=== PATIENT | female | born 1965 | race African-American/Black ===

== ENCOUNTER 2018-08-21 18:01 | Emergency (ER) | payer BC ==
[2018-08-21] MEDS ORDERED: HYDROCODONE/APAP 5/325 MG TAB ONE (18:46)
--- NOTE | 2018-08-21 19:00 | ER ---
Nurse's Notes [facility] Name: Dorothy Tompkins Age: 52 yrs Sex: Female : 1965 Arrival Date: 08/21/2018 Time: 18:04 Bed 18 Private MD: Marge Ken H Diagnosis: Synovial cyst of popliteal space [Moreno], left knee Presentation: 08/21 18:15 Presenting complaint: Patient states: betsy leg pain and swelling that began Tuesday. Pt aa5 states "the left hurts worse than the right". Transition of care: patient was not received from another setting of care. Onset of symptoms was August 2018. Risk Assessment: Do you want to hurt yourself or someone else? Patient reports no desire to harm self or others. Initial Sepsis Screen: Does the patient meet any 2 criteria? No. Patient's initial sepsis screen is negative. Does the patient have a suspected source of infection? No. Patient's initial sepsis screen is negative. Care prior to arrival: None. 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 - Social history:: Smoking status: Patient/guardian denies using tobacco. - Ebola Screening: : No symptoms or risks identified at this time. Screenin:35 Abuse screen: Denies threats or abuse. Denies injuries from another. Nutritional jl7 screening: No deficits noted. Tuberculosis screening: No symptoms or risk factors identified. Fall Risk None identified. Assessment: 18:35 Pain: Complains of pain in right leg and left leg Pain does not radiate. Pain currently jl7 is 8 out of 10 on a pain scale. Quality of pain is described as pressure, "warmth" Pain began Since Is continuous. Neuro: Level of Consciousness is awake, alert, obeys commands, Oriented to person, place, time, situation. Cardiovascular: Patient's skin is warm and dry. Respiratory: Airway is patent Respiratory effort is even, unlabored, Respiratory pattern is regular, symmetrical. GI: No signs and/or symptoms were reported involving the gastrointestinal system. : No signs and/or symptoms were reported regarding the genitourinary system. EENT: No signs and/or symptoms were reported regarding the EENT system. Derm: Skin is dry, Skin is normal, Skin temperature is warm. Musculoskeletal: Range of motion: intact in all extremities. 19:28 Reassessment: Patient and/or family updated on plan of care and expected duration. Pain ea level reassessed. Patient is alert, oriented x 3, equal unlabored respirations, skin warm/dry/pink. Discharge instructions given to patient, verbalized the understanding of instruction. Vital Signs: 18:19 BP 145 / 91; Pulse 68; Resp 18 S; Temp 98.4(TE); Pulse Ox 100% on R/A; Weight 118.84 kg aa5 (R); Height 5 ft. 4 in. (162.56 cm) (R); Pain 8/10; 19:15 BP 140 / 80; Pulse 70; Resp 18; Pulse Ox 98% ; ea 18:19 Body Mass Index 44.97 (118.84 kg, 162.56 cm) aa5 ED Course: 18:04 Patient arrived in ED. rg4 18:04 Marge Ken DO is Private Physician. rg4 18:18 Triage completed. aa5 18:18 Arm band placed on. aa5 18:23 Prudence Stevenson FNP-C [facility]. snw 18:23 Tawanda Oliveira MD is Attending Physician. snw 18:31 Stephanie Bedolla RN is Primary Nurse. jl7 18:35 Patient has correct armband on for positive identification. Bed in low position. Call jl7 light in reach. Side rails up X 1. Pulse ox on. NIBP on. 18:59 Marge Ken DO is Referral Physician. snw 18:59 Jaydon Jo MD is Referral Physician. snw 19:15 US Extremity Venous W Compression Betsy In Process Unspecified. EDMS 19:29 No provider procedures requiring assistance completed. Patient did not have IV access ea during this emergency room visit. Administered Medications: 18:40 Drug: Aneta 5 mg-325 mg 1 tabs Route: PO; jl7 19:15 Follow up: Response: No adverse reaction harinder Outcome: 18:59 Discharge ordered by . azael 19:29 Discharged to home ambulatory, with family. harinder 19:29 Condition: improved 19:29 Discharge instructions given to patient, Instructed on discharge instructions, follow up and referral plans. medication usage, Demonstrated understanding of instructions, follow-up care, medications, Prescriptions given X 1. 19:31 Patient left the ED. ea Signatures: Dispatcher [employer] EDMS Prudence Stevenson, LIFE SCIENCES MANAGER-C LIFE SCIENCES MANAGER-Csnw Cherelle Franklin, RN RN aa5 Bernadette Beaver Jahala RN RN jl7 Marti Schaffer RN RN harinder
--- NOTE | 2018-08-21 19:00 | EDPHYS ---
Physician Documentation [facility] Name: Dorothy Tompkins Age: 52 yrs Sex: Female : 1965 Arrival Date: 08/21/2018 Time: 18:04 Bed 18 Private MD: Marge Ken H ED Physician Tawanda Oliveira HPI: 08/21 18:42 This 52 yrs old Black Female presents to ER via Ambulatory with complaints of Leg snw Swelling, Leg Pain. 18:42 The patient presents with pain, that is acute, swelling. The complaints affect the left snw leg and right leg. Context: The problem was sustained at home, resulted from an unknown cause, the patient can fully bear weight, the patient is able to ambulate, Problem is a result from a previous injury: No. Onset: The symptoms/episode began/occurred gradually, 1 week(s) ago, and became persistent. Associated signs and symptoms: Pertinent positives: swelling, tenderness. Treatment prior to arrival includes: taking allopurinol and just finished dose of steroids. Severity of symptoms: At their worst the symptoms were moderate, severe. The patient has experienced a previous episode, last month. The patient has been recently seen by a physician: the patient's primary care provider, 1 week(s) ago. SPA THERAPIST: 18:19 LMP N/A - Post-menopause aa5 Historical: - Allergies: 18:19 TIA INHIBITORS; aa5 18:19 Biaxin; aa5 18:19 Clarithromycin; aa5 18:19 Lisinopril; aa5 - PMHx: 18:19 Hypertension; aa5 - PSHx: 18:19 esophagus sx to remove growth; Appendectomy; aa5 - Immunization history:: Adult Immunizations unknown. - Social history:: Smoking status: Patient/guardian denies using tobacco. - Ebola Screening: : No symptoms or risks identified at this time. ROS: 18:41 Constitutional: Negative for fever, chills, and weight loss, Eyes: Negative for injury, snw pain, redness, and discharge, ENT: Negative for injury, pain, and discharge, Neck: Negative for injury, pain, and swelling, Cardiovascular: Negative for chest pain, palpitations, and edema, Respiratory: Negative for shortness of breath, cough, wheezing, and pleuritic chest pain, Abdomen/GI: Negative for abdominal pain, nausea, vomiting, diarrhea, and constipation, Back: Negative for injury and pain, : Negative for injury, bleeding, discharge, and swelling, Skin: Negative for injury, rash, and discoloration, Neuro: Negative for headache, weakness, numbness, tingling, and seizure. 18:41 MS/extremity: Positive for pain to bilateral lower extremities from knees down, just finished dose of prednisone and is taking allopurinol. Exam: 18:39 Constitutional: This is a well developed, well nourished patient who is awake, alert, snw and in no acute distress. Head/Face: Normocephalic, atraumatic. Eyes: Pupils equal round and reactive to light, extra-ocular motions intact. Lids and lashes normal. Conjunctiva and sclera are non-icteric and not injected. Cornea within normal limits. Periorbital areas with no swelling, redness, or edema. ENT: Nares patent. No nasal discharge, no septal abnormalities noted. Tympanic membranes are normal and external auditory canals are clear. Oropharynx with no redness, swelling, or masses, exudates, or evidence of obstruction, uvula midline. Mucous membranes moist. Neck: Trachea midline, no thyromegaly or masses palpated, and no cervical lymphadenopathy. Supple, full range of motion without nuchal rigidity, or vertebral point tenderness. No Meningismus. Chest/axilla: Normal chest wall appearance and motion. Nontender with no deformity. No lesions are appreciated. Cardiovascular: Regular rate and rhythm with a normal S1 and S2. No gallops, murmurs, or rubs. Normal PMI, no JVD. No pulse deficits. Respiratory: Lungs have equal breath sounds bilaterally, clear to auscultation and percussion. No rales, rhonchi or wheezes noted. No increased work of breathing, no retractions or nasal flaring. Abdomen/GI: Soft, non-tender, with normal bowel sounds. No distension or tympany. No guarding or rebound. No evidence of tenderness throughout. Back: No spinal tenderness. No costovertebral tenderness. Full range of motion. Skin: Warm, dry with normal turgor. Normal color with no rashes, no lesions, and no evidence of cellulitis. Neuro: Awake and alert, GCS 15, oriented to person, place, time, and situation. Cranial nerves II-XII grossly intact. Motor strength 5/5 in all extremities. Sensory grossly intact. Cerebellar exam normal. Normal gait. Psych: Awake, alert, with orientation to person, place and time. Behavior, mood, and affect are within normal limits. 18:39 Musculoskeletal/extremity: Extremities: bilateral lower ext nonpitting edema. No erythema, no pulse defecit, ROM: intact in all extremities, Circulation is intact in all extremities. Sensation intact. Vital Signs: 18:19 BP 145 / 91; Pulse 68; Resp 18 S; Temp 98.4(TE); Pulse Ox 100% on R/A; Weight 118.84 kg aa5 (R); Height 5 ft. 4 in. (162.56 cm) (R); Pain 8/10; 19:15 BP 140 / 80; Pulse 70; Resp 18; Pulse Ox 98% ; ea 18:19 Body Mass Index 44.97 (118.84 kg, 162.56 cm) aa5 MDM: 18:[address] [facility] 19:01 Data reviewed: vital signs, nurses notes. Data interpreted: Pulse oximetry: on room air snw is 100 %. Interpretation: normal. Counseling: I had a detailed discussion with the patient and/or guardian regarding: the historical points, exam findings, and any diagnostic results supporting the discharge/admit diagnosis, radiology results, the need for outpatient follow up, to return to the emergency department if symptoms worsen or persist or if there are any questions or concerns that arise at home. Special discussion: Based on the history and exam findings, there is no indication for further emergent testing or inpatient evaluation. I discussed with the patient/guardian the need to see the orthopedic surgeon for further evaluation of the symptoms. I discussed with the patient/guardian the need to see the primary care provider for further evaluation of the symptoms. 08/21 18:34 Order name: US Extremity Venous W Compression Tc; Complete Time: 19:24 snw Administered Medications: 18:40 Drug: Roland 5 mg-325 mg 1 tabs Route: PO; jl7 19:15 Follow up: Response: No adverse reaction ea Disposition: 08/22 07:40 Co-signature as Attending Physician, Tawanda Oliveira MD I agree with the assessment and [facility] plan of care. Disposition: 08/21/18 18:59 Discharged to Home. Impression: Synovial cyst of popliteal space [Moreno], left knee. - Condition is Stable. - Discharge Instructions: Moreno Cyst, How to Use a Knee Brace, Knee Sprain, Knee Pain. - Prescriptions for Tylenol- Codeine #3 300-30 mg Oral Tablet - take 2 tablets by ORAL route every 6 hours As needed; 20 tablet. - Work release form, Medication Reconciliation Form, Thank You Letter, Antibiotic Education, Prescription Opioid Use form. - Follow up: Suellen, DO Marge; When: 2 - 3 days; Reason: Recheck today's complaints, Continuance of care, Re-evaluation by your physician. Follow up: Emergency Department; When: As needed; Reason: Worsening of condition. Follow up: Jaydon Jo MD; When: 1 week; Reason: Recheck today's complaints, Continuance of care. Signatures: Dispatcher [employer] EDTawanda Michaels MD MD cha Therrien, Shelly, ANIMAL PATHOLOGY TEACHER-C ANIMAL PATHOLOGY TEACHER-Csnw Cherelle Franklin, RN RN aa5 Stephanie Bedolla RN RN jl7 Marti Schaffer RN RN ea Corrections: (The following items were deleted from the chart) 08/21 19:31 18:59 08/21/2018 18:59 Discharged to Home. Impression: Synovial cyst of popliteal space ea [Moreno], left knee. Condition is Stable. Forms are Medication Reconciliation Form, Thank You Letter, Antibiotic Education, Prescription Opioid Use. Follow up: Marge Ken; When: 2 - 3 days; Reason: Recheck today's complaints, Continuance of care, Re-evaluation by your physician. Follow up: Emergency Department; When: As needed; Reason: Worsening of condition. Follow up: Jaydon Jo; When: 1 week; Reason: Recheck today's complaints, Continuance of care. snw
--- NOTE | 2018-08-21 19:21 | RAD REPORT ---
EXAM DESCRIPTION: US - Extrem Venous W Compress Tc - 08/21/2018 7:14 pm CLINICAL HISTORY: Leg pain and swelling COMPARISON: None. TECHNIQUE: Real-time sonographic evaluation of the bilateral lower extremity common femoral, superfi cial femoral, popliteal and posterior tibial veins was performed. FINDINGS: Normal compressibility, flow augmentation, phasic flow and spontaneous flow are identified in the left and right lower extremity common femoral, superficial femoral, popliteal and posterior t ibial veins. No intraluminal filling defects seen. A 3.7 x 1.5 x 1.1 centimeter popliteal fossa cyst present. Debris is seen within this cyst but no rup ture or hemorrhage. IMPRESSION: No DVT in either lower extremity. Approximately 3.7 centimeter minimally complex popliteal fossa cyst. No acute cyst rupture or hemorrh age.
[2018-08-21 19:35] VITALS: TEMP 98.4
[2018-08-21 19:36] VITALS: BP 140/80; O2SAT 98
== END 2018-08-21 19:31 | disposition home or self-care (01) ==
LOC: ER 18:01
DX: M71.22 Synovial cyst of popliteal space [Baker], left knee (principal); I10 Essential (primary) hypertension; Z88.3 Allergy status to other anti-infective agents; Z88.8 Allergy status to other drugs, medicaments and biological substances
CPT/HCPCS: 93970; 99284

== ENCOUNTER 2023-01-13 06:05 | Day surgery (SDC) | payer OTHER ==
[2023-01-10 16:28] LABS: Absolute Lymphocytes (CBC) 2.4 K/uL (0.7-4.9); Lymphocytes % 34.5 % (15.3-44.8); MPV 8.4 fL (7.6-11.3); RBC Red Blood Cell Count 4.86 M/uL (3.86-4.86)
[2023-01-10 16:31] LABS: Specific Gravity 1.012 (1.005-1.030); Urine Bacteria None Seen /HPF (<20); Urine Bilirubin NEGATIVE (Negative); Urine Blood Negative (Negative); Urine Clarity Clear (Clear); Urine Color Light-Yellow (Yellow); Urine Crystals Unidentified Few /HPF (None Seen); Urine Glucose NEGATIVE (Negative); Urine Mucus Slight /HPF (None Seen); Urine Protein NEGATIVE (Negative); Urine RBC <5 /HPF (None Seen); Urine Urobilinogen Normal (Normal); Urine WBC Clump Rare /HPF (None Seen); Urine pH 5.5 (5.0-7.0)
[2023-01-13] MEDS ORDERED: SCOPOLAMINE HYDROBROMIDE PATCH TD ONE (06:16)
[2023-01-13] MEDS ORDERED: Ringers Lactate 1,000 ML IV ONE ×3 (06:16→09:56)
[2023-01-13] MEDS ORDERED: dexAMETHasone 10 MG/ML VIAL ONE (06:51)
[2023-01-13] MEDS ORDERED: ROCURONIUM 50 MG/5 ML VIAL IV ONE (06:51)
[2023-01-13] MEDS ORDERED: FENTANYL CITR 250 MCG/5 ML ONE (06:51)
[2023-01-13] MEDS ORDERED: propofoL 200 MG/20 ML VIAL IV ONE (06:51)
[2023-01-13] MEDS ORDERED: LIDOCAINE 2% MPF 5 ML VIAL ONE (06:51)
[2023-01-13] MEDS ORDERED: KETAMINE HCL 500 MG/5 ML VIAL ONE (06:52)
[2023-01-13] MEDS ORDERED: NS 0.9% VIAL 20 ML ONE (06:52)
[2023-01-13] MEDS ORDERED: MIDAZOLAM HCL 2 MG/2 ML INJ ONE (06:52)
[2023-01-13] MEDS ORDERED: ONDANSETRON 4 MG/2 ML VIAL ONE (06:52)
[2023-01-13] MEDS: Levofloxacin 750mg IV 750 MG/150 ML BAG IV ONE ×2 (07:34→07:50)
[2023-01-13] MEDS: BUPIVACAINE 0.25% PF 10 ML VIAL ONE ×4 (07:34→11:30)
[2023-01-13] MEDS ORDERED: Mastisol Adhesive Liq ONE (11:27)
[2023-01-13] MEDS ORDERED: PROMETHAZINE INJ 25 MG/ML AMP IV PRN (11:27)
[2023-01-13] MEDS ORDERED: MEPERIDINE HCL 25 MG/ML SYR IM PRN (11:27)
[2023-01-13] MEDS ORDERED: IBUPROFEN 200 MG TAB PO PRN (11:27)
[2023-01-13] MEDS ORDERED: HYDROCODONE/APAP 5/325 MG TAB PO PRN (11:27)
--- NOTE | 2023-01-13 11:33 | P.BOP ---
Preoperative diagnosis: postmenopausal bleeding Postoperative diagnosis: same Primary procedure: TLH BSO, Vag morcellation, lysis of bowel, uterine tubal ovarian adhesions [place] [place] Production Supervisor: Dipti Valerio Estimated blood loss: 250 Specimen: uterus tubes ovaries Findings: bilat tubal and ovarian adhesions, Umb hernia w/omental adhesions contents Anesthesia: General Complications: None Transferred to: Recovery Room Condition: Good
[2023-01-13] MEDS: HYDROMORPHONE HCL 1 MG/ML INJ ONE ×2 (11:59→12:18)
[2023-01-13] MEDS ORDERED: HYDROMORPHONE HCL 1 MG/ML INJ ONE (12:23)
[2023-01-13 13:45] VITALS: BP 156/92; TEMP 97.2; O2SAT 95
[2023-01-13] MEDS ORDERED: HYDROCODONE/APAP 5/325 MG TAB ONE (13:52)
--- NOTE | 2023-01-13 14:56 | OP ---
Date of Procedure: 01/13/2023 Surgeon: Sara Garrett MD Ux Developer Designer: Dipti Bowman. Preoperative Diagnoses: Postmenopausal bleeding, morbid obesity, obstructive sleep apnea. Postoperative Diagnoses: Postmenopausal bleeding, morbid obesity, obstructive sleep apnea, and large fibroid, umbilical hernia with incarcerated omental contents, significant bilateral tubal and ovaria n adhesions. Anesthesia: General endotracheal. Estimated Blood Loss: 250. Complications: No complications. Drains: No drains. Condition: The patient's condition stable. Findings: Bilateral tubal and ovarian adhesions, significant most likely phlebotomy services representative of all with the umbilical hernia with large amount of omental adhesions and also adhesions to the anterior abdomi nal wall from her prior appendectomy most likely. Then, she had a large pannus which made the proced ure difficult as well. Vaginal cuff closure, 2-0 V-Loc, 3 sutures on the right corner and immediatel y adjacent to it. Then, 2 simple sutures and 2 [id number] in the rest of the vaginal cuff with 3-0 PDS. Indications: The patient is a 57-year-old with postmenopausal bleeding. She was evaluated with ultr asound and endometrial sampling. She was found to have no atypia or malignancy. Discussed about all different options with her recurrent bleeding. The patient wanted to proceed with a hysterectomy. Discussed about alternative IUD levonorgestrel system, but declined, thus she wanted definitive manag ement. After consenting the patient, she was brought to the preoperative area. We discussed about obstructi ve sleep apnea. She was counseled on using her CPAP machine at night, especially given the risk that she could have postanesthesia and with the use of narcotics for pain control. The patient understoo d this. Levaquin 750 mg were given as the patient has penicillin allergy with severe . She was taken back to OR, placed in a supine fashion on the table. General anesthesia was given. Sh e was placed in a dorsal lithotomy position using Chicho stirrups. Abdomen, vulva, vagina, and perine um were prepped and draped in a sterile fashion. Abdomen with ChloraPrep and vagina and lower part w ith Betadine. Andrade was placed to drain the bladder and attached to retrograde filling. Speculum placed to expose cervix and medium VCare introduced and fixed in place. This area was then draped. A 1 cm supraumbilical incision was made with a scalpel using the open laparoscopy technique. Fascia was incised, tagged with 0 Vicryl sutures and the peritoneum entered bluntly. I could palpate the om ental adhesions at the side and they were swept with a finger in the top half and then a 5 port in th e left lower quadrant and in the left upper quadrant were placed without any problems. Then, I went on to the right lower quadrant 5 port as well. Through all these omental adhesions were all visualiz ed and systematically taken down layer by layer with the LigaSure and completely resected and drop-do wn and the patient was placed in Trendelenburg. There were significant in tubal and ovarian adhesions. A 10/12 suprapubic port was placed under dire ct vision. Once all small and large bowels were retracted superiorly, I inspected the pelvic cavity. There were significant tubo-ovarian adhesions to the sidewall, posterior uterosacral, posterior uterus and then sigmoid adhesions to the anterior cul-de-sac, lateral cul-de-sac and the only task to be performed w as to restore normal anatomy by taking down all these adhesions in order for me to visualize the pelv ic pathology on the sidewall. Once this was done with the help of the LigaSure in a systematic fashi on using the coagulative aspect as well as cutting at most places with regular dissection with scisso rs. Once all the adhesions were taken down from the right and the left and the posterior wall and identif ied the ureters on the pelvic brim to the ureteric tunnel. Now, hysterectomy was started. Lateral broad ligament on the left side was opened up with the help o f the LigaSure. Then, the medial leaf of the broad ligament was also opened up between the ureter an d the IP. Then, the pedicle was taken with the help of the LigaSure. Mesosalpinx posteriorly was ta lowell down with the help of the LigaSure. Then, the round ligament on the left side was exposed, caute rized, and cut, opened the anterior-posterior leaves posteriorly. There were adhesions of the sigmoi d to the left uterosacral. These was then dissected down carefully without causing any injury to the bowel. The ureter was also dissected and it was sliding laterally. The broad ligament skeletonized, vessels exposed, vessels coagulated and cut with the help of the Lig aSure. Then, on the opposite side, the anterior peritoneum above and below the round ligament were o pened up. The round ligament was taken down. The medial leaf of the broad ligament impaled to the I P was opened up and this pedicle was taken down with the help of the LigaSure and dissection carried through the posterior peritoneum all the way to the uterosacral ligament and once this was dropped do ne, the anterior broad ligament was opened up and connected to the bladder flap. Bladder was dissect ed inferiorly. Then, broad ligament taken down and the vessels were taken down with the help of the LigaSure, first on the right side and then on the left side exposing the uterosacral ligaments. The connections were also detached with the help of the LigaSure. Then, anteriorly the bladder was disse cted adequately for me to see the cuff and so colpotomy was performed with a monopolar hook blade piero villalobos from [id number]-gf-vasd and then the posterior aspect connected with the help of the monopolar hook. Specimen attempted to be pulled out through the vagina. This was very difficult due to the size of t he fibroid. There were large fibroids on her right side. Vaginal morcellation was then decided for the uterus to come out. Then, [place] clamps were pl aced on the anterior and posterior lip of the cervix and morcellated with the help of a 10 blade and using small retractors for exposure. Once all this was done, the specimen pulled out through the vag ayde. A vaginal occluder was placed. I went on to the abdominal part and here on irrigating and suctioning the cuff, this was hemostatic. Then, 2-0 V-Loc was taken and started to suture from the right angle. The angle suture was placed, then another suture half were placed; however, there was very significant difficulty visualizing in t he inner edge of the vaginal epithelium at the level of the cuff and there was a bleeder from the lef t corner. Once I was able to identify this, it was picked up with Marie and two 5 mm princess were placed. The clips were placed. Cautery was done with the help of the fine tip bipolar. A 0 PDS simple angle suture was placed. Then, 2 [id number] were placed and then a simple centr al 0 Vicryl stitch was placed. Once there was excellent apposition, then pictures were taken. All t he trocars were removed under direct vision. Instrument, needle, and sponge counts were correct at t he end of the case. After de-sufflating the abdomen placing the patient in the supine position, the gas was desufflated and incision site fascial closure was done with a 0 Vicryl suture, was tagged to the edges. They were tied to each other, then simple deep 0 Vicryl suture in the suprapubic port and all skin incisions closed with the help of 4-0 Monocryl, some interrupted and some continuous suture s. Andrade was removed and the vaginal occluder was removed. Instrument, needle, and sponge counts were d one again and they were correct. She was recovered from anesthesia and taken to PACU in stable condi tion. EBL 250. She has a 1-week follow up in the office. Careful vaginal instructions making sure that she is not sexually active for at least 8-10 weeks would be optimal. ZACH/SURJIT Voice ID: [id number] Report ID: [id number]
[2023-01-14] MEDS ORDERED: ASHWAGANDHA ROOT EXTRACT 500 MG PO SCH (09:00)
[2023-01-14] MEDS ORDERED: METOPROLOL XL 25 MG TAB PO SCH (09:00)
[2023-01-14] MEDS ORDERED: HOME MED 1 EA UNK (L.Acidoph,Paracasei, B.Lactis [Probiotic] Capsule) PO SCH (09:00)
[2023-01-14] MEDS ORDERED: MVI WITH MINERALS TAB PO SCH (09:00)
[2023-01-14] MEDS ORDERED: PANTOPRAZOLE 40MG TABLET PO SCH (09:00)
[2023-01-14] MEDS ORDERED: HOME MED 1 EA UNK (Losartan/Hydrochlorothiazide [Losartan-Hctz 100-25 Mg Tab] 1 EACH Table PO SCH (09:00)
[2023-01-14] MEDS ORDERED: LORATADINE 10 MG TAB PO SCH (09:00)
[2023-01-14] MEDS ORDERED: CETIRIZINE HCL 5 MG TABLET PO SCH (09:00)
== END 2023-01-13 15:27 | disposition home or self-care (01) ==
LOC: OR 06:05
PROVIDERS: ATTEND Obstetrics & Gynecology
PROC: 0UT24ZZ Resection of Bilateral Ovaries, Percutaneous Endoscopic Approach (ICD-10-PCS; 2023-01-13)
PROC: 0UT74ZZ Resection of Bilateral Fallopian Tubes, Percutaneous Endoscopic Approach (ICD-10-PCS; 2023-01-13)
PROC: 0UN24ZZ Release Bilateral Ovaries, Percutaneous Endoscopic Approach (ICD-10-PCS; 2023-01-13)
PROC: 0DNN4ZZ Release Sigmoid Colon, Percutaneous Endoscopic Approach (ICD-10-PCS; 2023-01-13)
PROC: 0DN84ZZ Release Small Intestine, Percutaneous Endoscopic Approach (ICD-10-PCS; 2023-01-13)
PROC: 0DNE4ZZ Release Large Intestine, Percutaneous Endoscopic Approach (ICD-10-PCS; 2023-01-13)
PROC: 0UN74ZZ Release Bilateral Fallopian Tubes, Percutaneous Endoscopic Approach (ICD-10-PCS; 2023-01-13)
PROC: 0UT94ZZ Resection of Uterus, Percutaneous Endoscopic Approach (ICD-10-PCS; principal; 2023-01-13 07:00)
DX: N95.0 Postmenopausal bleeding (principal); N84.0 Polyp of corpus uteri; D25.9 Leiomyoma of uterus, unspecified; G47.33 Obstructive sleep apnea (adult) (pediatric); K42.9 Umbilical hernia without obstruction or gangrene; K66.0 Peritoneal adhesions (postprocedural) (postinfection); E66.01 Morbid (severe) obesity due to excess calories; Z68.42 Body mass index [BMI] 45.0-49.9, adult
CPT/HCPCS: 58571; 58660; 85025; 81001; 36415; 86900; 86850; 86901; 88307; J2704; J2250; J3010; J1100; A4216; J1170 ×2; J2001; J7120 ×3; J2405

== ENCOUNTER 2023-01-27 10:27 | Observation (INO) | payer OTHER ==
[2023-01-27 11:02] LABS: SARS-CoV-2 Antigen Rapid Res Negative (Negative)
--- OUTSIDE RECORDS SUMMARY | 2023-01-27 11:22 | XMS REPORT | Continuity of Care Document ---
:1965 Author Organization [facility] MD Armijo [facility] Address [address] [place] [address] Care Team Providers Name Role Phone Unavailable Primary Care Provider Unavailable Encounters Date Type Specialty Care Team Description 07/14/2022 - Emergency Emergency Medicine Fransico Maxwell Aller gic reaction 07/15/2022 (Primary Dx) 07/14/2022 Travel after 01/27/2022 Allergies Active Allergy Reactions Severity Noted Date Comments Penicillins Rash High 07/14/2022 Clarithromycin Rash High 07/14/2022 Lisinopril Swelling High 07/14/2022 Furosemide Swelling High 07/14/2022 Amlodipine Swelling High 07/14/2022 after 01/27/2022 Medications Medication Sig Dispensed Refills Start Date End Date Status predniSONE (DELTASONE) Take 2 tablets (40 6 tablet 0 07/15/20 22 Active 20 mg mg) by mouth daily tabletIndications: with dinner. Allergic reaction after 01/27/2022 Active Problems Not on fileafter 01/27/2022 Social History Tobacco Use Types Packs/Day Years Used Date Smoking Tobacco: Never Assessed Sex Assigned at Date Recorded Not on file Job Start Date Occupation Industry Not on file Not on file Not on file after 01/27/2022 Last Filed Vital Signs Vital Sign Reading Time Taken Comments Blood Pressure 119/71 07/15/2022 12:40 AM CDT Pulse 91 07/15/2022 12:40 AM CDT Temperature 36.8 C (98.2 F) 07/15/2022 12:40 AM CDT Respiratory Rate 18 07/15/2022 12:40 AM CDT Oxygen Saturation 100% 07/15/2022 12:40 AM CDT Inhaled Oxygen Concentration - - Weight 138 kg (304 lb 3.8 oz) 07/14/2022 11:43 PM CDT Height 165.1 cm (5' 5") 07/14/2022 11:43 PM CDT Body Mass Index 50.63 07/14/2022 11:43 PM CDT after 01/27/2022 Plan of Treatment Not on fileafter 01/27/2022 Procedures Procedure Name Priority Date/Time Associated Comments Diagnosis FRACTIONATED BILIRUBIN Now 07/15/2022 12:51 R esults for this AM CDT procedure are i n the results section. TOTAL PROTEIN Now 07/15/2022 12:51 Results fo r this AM CDT procedure are i n the results section. ASPARTATE Now 07/15/2022 12:51 Results for this AMINOTRANSFERASE AM CDT procedure a re in the results section. ALANINE AMINOTRANSFERASE Now 07/15/2022 12:51 Results for this AM CDT procedure are i n the results section. ALKALINE PHOSPHATASE Now 07/15/2022 12:51 Res ults for this AM CDT procedure are i n the results section. ALBUMIN LEVEL Now 07/15/2022 12:51 Results fo r this AM CDT procedure are i n the results section. CALCIUM LEVEL TOTAL Now 07/15/2022 12:51 Resu lts for this AM CDT procedure are i n the results section. .GLOMERULAR FILTRATION Now 07/15/2022 12:51 R esults for this RATE AM CDT procedure are i n the results section. SERUM CREATININE Now 07/15/2022 12:51 Results for this AM CDT procedure are i n the results section. ELECTROLYTE PANEL Now 07/15/2022 12:51 Result s for this AM CDT procedure are i n the results section. BLOOD UREA NITROGEN Now 07/15/2022 12:51 Resu lts for this AM CDT procedure are i n the results section. GLUCOSE LEVEL Now 07/15/2022 12:51 Results fo r this AM CDT procedure are i n the results section. MANUAL DIFFERENTIAL STAT 07/15/2022 12:51 Resu lts for this AM CDT procedure are i n the results section. Results CBC STAT 07/15/2022 12:51 Results for this AM CDT procedure are i n the results section. PHOSPHORUS LEVEL Now 07/15/2022 12:51 Results for this AM CDT procedure are i n the results section. MAGNESIUM LEVEL Now 07/15/2022 12:51 Results for this AM CDT procedure are i n the results section. COMPREHENSIVE METABOLIC Now 07/15/2022 12:51 PANEL AM CDT COMPLETE BLOOD COUNT W/ Now 07/15/2022 12:51 DIFFERENTIAL AM CDT after 01/27/2022 Results (ABNORMAL) .Serum Creatinine (07/15/2022 12:51 AM CDT) athologist [facility] Creatinine 1.14 (H) 0.51 - 0.95 [facility] mg/dL [facility] Specimen Anatomical Collection Method Collection Time Receive d Time (Source) Location / / Volume Laterality Blood 07/15/2022 12:51 07/15/2022 1:00 AM CDT AM CDT Glen Cerna MD LAB BLOOD ORDERABLES Performing Organization Address City/State/ZIP Code Phon e Number [facility] CANCER Unless otherwise noted, [place], [place] [id number] [place] [address] all lab tests performed by: Division of Pathology and Laboratory Medicine [address] (ABNORMAL) .CBC (07/15/2022 12:51 AM CDT) athologist Signature WBC 10.6 4.0 - 11.0 [facility] K/[facility] RBC 4.97 4.00 - OR MD 5.50 /[facility] Hgb 12.1 12.0 - OR MD 16.0 gm/dL [facility] Hct 36.6 (L) 37.0 - OR MD 47.0 [facility] MCV 74 (L) 82 - 98 [facility] MCH 24.3 (L) 27.0 - OR MD 31.0 pg [facility] MCHC 33.1 31.0 - OR MD 36.0 gm/dL [facility] RDW-SD 38.7 35.1 - OR MD 46.3 [facility] RDW-CV 14.6 12.0 - OR MD 15.5 % [facility] Platelet count 330 140 - 440 [facility] MPV 10.0 4.0 - 10.4 OR [facility] INRBC 0.0 <=0.0 % [facility] Comment: The INRBC (instrument NRBC) value reflec ts the enumeration of nucleated red blood cells contained i n a 200uL sample of whole blood analyzed by the instrumen t. This value may differ from the NRBC value reported in a manual differential, which is based on a 100 cell differentia l. Specimen Anatomical Collection Method Collection Time Receive d Time (Source) Location / / Volume Laterality Blood 07/15/2022 12:51 07/15/2022 AM CDT 12:58 AM CDT Glen Cerna MD LAB BLOOD ORDERABLES Performing Organization Address City/State/ZIP Code Phon e Number [facility] CANCER Unless otherwise noted, [place] [address] [place] all lab tests performed by: Division of Pathology and Laboratory Medicine [address] (ABNORMAL) Glomerular Filtration Rate (07/15/2022 12:51 AM CDT) P athologist Signature eGFR-AA 63 >=60 [facility] mL/min/1.73 [facility] sq. m Comment: Normal eGFR: >= 60 mL/min/1.73 m2 Note: The eGFR is calculated using the C KD-EPI equation. The eGFR declines with age. eGFR <60 mL/min/1.73 m2 is considered as "decreased". This equation should only be used for patients 18 and older. According to the National [employer] ion's Kidney Disease Outcome Quality Initiative (KDOQI) classification and 2012 Kidney Disease Improving Global Outcomes (KDIGO) Clinical Practice Guideline, the stage of CKD should be categorized based on estimated GFR. Stage Description GFR mL/min/1. 73 m2 1 Normal or high GFR >=90 2 Mildly decreased GFR 60-89 3a Mildly to moderately decreased GFR 45-59 3b Moderately to severely decreased GFR 30-44 4 Severely decreased GFR 15-29 5 Kidney failure <15 eGFR-ELYSIA 54 (L) >=60 mL/min/1.73 sq. m OR MD Samaria LARA [facility] Comment: Normal eGFR: >= 60 mL/min/1.73 m2 Note: The eGFR is calculated using the C KD-EPI equation. The eGFR declines with age. eGFR <60 mL/min/1.73 m2 is considered as "decreased". This equation should only be used for patients 18 and older. According to the National [employer] ion's Kidney Disease Outcome Quality Initiative (KDOQI) classification and 2012 Kidney Disease Improving Global Outcomes (KDIGO) Clinical Practice Guideline, the stage of CKD should be categorized based on estimated GFR. Stage Description GFR mL/min/1. 73 m2 1 Normal or high GFR >=90 2 Mildly decreased GFR 60-89 3a Mildly to moderately decreased GFR 45-59 3b Moderately to severely decreased GFR 30-44 4 Severely decreased GFR 15-29 5 Kidney failure <15 Specimen Anatomical Collection Method Collection Time Receive d Time (Source) Location / / Volume Laterality Blood 07/15/2022 12:51 07/15/2022 1:00 AM CDT AM CDT Glen Cerna MD LAB BLOOD ORDERABLES Performing Organization Address City/[facility] Phon e Number [facility] CANCER Unless otherwise noted, [address] all lab tests performed by: Division of Pathology and Laboratory Medicine [address] [facility] [address] Fractionated Bilirubin (07/15/2022 12:51 AM CDT) athologist Signature Bili Total <0.3 <=1.2 mg/dL [facility] Comment: Direct and indirect bilirubin will not b e reported when Total bilirubin result is <0.3 mg/dL Indocyanine Green (ICG) may cause falsel y elevated bilirubin results. Total and direct bilirubin must not be measured from samples containing indocyanine green. False elevation of total bilirubin can b e seen in patients with IgG concentrations above 28 g/L. Specimen Anatomical Collection Method Collection Time Receive d Time (Source) Location / / Volume Laterality Blood 07/15/2022 12:51 07/15/2022 1:00 AM CDT AM CDT Glen Cerna MD LAB BLOOD ORDERABLES Performing Organization Address City/[facility] Phon e Number [facility] Unless otherwise noted, [address] all lab tests performed by: Division of Pathology and Laboratory Medicine [address] [employer] [address] [facility] [address] (ABNORMAL) Differential (07/15/2022 12:51 AM CDT) athologist Signature Neutrophil % 78.5 (H) 42.0 - [facility] 66.0 % [facility] CENTER Lymphocyte % 14.9 (L) 24.0 - [facility] 44.0 % [facility] Monocyte % 5.2 2.0 - 7.0 [facility] % [facility] CENTER Eosinophil % 0.8 (L) 1.0 - 4.0 [facility] % [facility] CENTER Basophil % 0.2 0.0 - 1.0 [facility] % [facility] CENTER IGRE % 0.4 0.0 - 0.4 [facility] % [facility] CENTER Comment: IGRE % count includes Metamyelo cytes, Myelocytes, and Promyelocytes. Neutrophil Abs 8.29 (H) 1.70 - 7.30 K/uL [facility] Lymphocyte Abs 1.57 1.00 - 4.80 K/uL [facility] Monocyte Abs 0.55 0.08 - 0.70 K/uL OR [facility] Eosinophil Abs 0.08 0.04 - 0.40 K/uL OR [facility] Basophil Abs 0.02 0.00 - 0.10 K/uL OR [facility] Abs 0.04 0.00 - 0.04 K/uL OR MD ALTAF Ralph [facility] Specimen Anatomical Collection Method Collection Time Receive d Time (Source) Location / / Volume Laterality Blood 07/15/2022 12:51 07/15/2022 AM CDT 12:58 AM CDT Glen Cerna MD LAB BLOOD ORDERABLES Performing Organization Address City/State/ZIP Code Phon e Number [facility] CANCER Unless otherwise noted, [address] all lab tests performed by: Division of Pathology and Laboratory Medicine [address] BUN (07/15/2022 12:51 AM CDT) P athologist Signature BUN 21 6 - 23 [facility] mg/dL [facility] CENTER Specimen Anatomical Collection Method Collection Time Receive d Time (Source) Location / / Volume Laterality Blood 07/15/2022 12:51 07/15/2022 1:00 AM CDT AM CDT Glen Cerna MD LAB BLOOD ORDERABLES Performing Organization Address City/[facility]/ZIP Code Phon e Number [facility] Unless otherwise noted, [address] all lab tests performed by: Division of Pathology and Laboratory Medicine [facility] ALT (07/15/2022 12:51 AM CDT) athologist Signature ALT 12 <=33 U/L [facility] Specimen Anatomical Collection Method Collection Time Receive d Time (Source) Location / / Volume Laterality Blood 07/15/2022 12:51 07/15/2022 1:00 AM CDT AM CDT Glen Cerna MD LAB BLOOD ORDERABLES Performing Organization Address City/[facility]/ZIP [facility] Phon e Number [facility] CANCER Unless otherwise noted, [address] all lab tests performed by: Division of Pathology and Laboratory Medicine [address] [place] [address] Aspartate Aminotransferase (07/15/2022 12:51 AM CDT) athologist Signature AST 13 <=32 U/L [facility] Specimen Anatomical Collection Method Collection Time Receive d Time (Source) Location / / Volume Laterality Blood 07/15/2022 12:51 07/15/2022 1:00 AM CDT AM CDT Glen Cerna MD LAB BLOOD ORDERABLES Performing Organization Address City/[facility] Phon e Number [facility] CANCER Unless otherwise noted, [address] all lab tests performed by: Division of Pathology and Laboratory Medicine [address] [place] [address] Total Protein (07/15/2022 12:51 AM CDT) athologist Signature Total Protein 6.4 6.4 - 8.3 [facility] g/dL [facility] Specimen Anatomical Collection Method Collection Time Receive d Time (Source) Location / / Volume Laterality Blood 07/15/2022 12:51 07/15/2022 1:00 AM CDT AM CDT Glen Cerna MD LAB BLOOD ORDERABLES Performing Organization Address City/[facility] Phon e Number [facility] CANCER Unless otherwise noted, [address] all lab tests performed by: Division of Pathology and Laboratory Medicine [address] [place], [place] [address]d Phosphorus Level (07/15/2022 12:51 AM CDT) athologist Signature Phosphorus 3.9 2.5 - 4.5 [facility] mg/dL [facility] Specimen Anatomical Collection Method Collection Time Receive d Time (Source) Location / / Volume Laterality Blood 07/15/2022 12:51 07/15/2022 1:00 AM CDT AM CDT Glen Cerna MD LAB BLOOD ORDERABLES Performing Organization Address City/[facility]/ZIP Code Phon e Number [facility] CANCER Unless otherwise noted, [address] all lab tests performed by: Division of Pathology and Laboratory Medicine [address] Alkaline Phosphatase (07/15/2022 12:51 AM CDT) athologist Signature Alk Phos 103 35 - 104 [facility] U/L [facility] Specimen Anatomical Collection Method Collection Time Receive d Time (Source) Location / / Volume Laterality Blood 07/15/2022 12:51 07/15/2022 1:00 AM CDT AM CDT Glen Cerna MD LAB BLOOD ORDERABLES Performing Organization Address City/[facility] Code Phon e Number [facility] Unless otherwise noted, [address] all lab tests performed by: Division of Pathology and Laboratory Medicine [address] Magnesium Level (07/15/2022 12:51 AM CDT) athologist [facility] Magnesium 1.9 1.6 - 2.6 [facility] mg/dL [facility] Specimen Anatomical Collection Method Collection Time Receive d Time (Source) Location / / Volume Laterality Blood 07/15/2022 12:51 07/15/2022 1:00 AM CDT AM CDT Glen Cerna MD LAB BLOOD ORDERABLES Performing Organization Address City/[facility] Phon e Number [facility] CANCER Unless otherwise noted, [address] all lab tests performed by: Division of Pathology and Laboratory Medicine [address] (ABNORMAL) Glucose Level (07/15/2022 12:51 AM CDT) athologist Signature Glucose Level 121 (H) 70 - 99 [facility] mg/dL [facility] Comment: Effective 06/09/16, the glucose reference intervals have been updated based on [place] Diabetes [employer] guidelines (Standards of Medical Care in Diabetes 2016. Diabetes Care 2016; 39: S13-S22). Fasting blood glucose: Normal: 70-99 mg/dL Impaired fasting glucose (increased risk for diabetes or pre-diabetes): 100- 125 mg/dL Diabetes mellitus: >/=126 mg/dL Random blood glucose: Normal: 70-199 mg/dL Note: Random glucose >100 mg/dL is assoc iated with increased risk for diabetes Specimen Anatomical Collection Method Collection Time Receive d Time (Source) Location / / Volume Laterality Blood 07/15/2022 12:51 07/15/2022 1:00 AM CDT AM CDT Glen Cerna MD LAB BLOOD ORDERABLES Performing Organization Address City/[facility]/ZIP [facility] Phon e Number [facility] CANCER Unless otherwise noted, [address] all lab tests performed by: Division of Pathology and Laboratory Medicine [address] [place], [place] [address] Calcium Level (07/15/2022 12:51 AM CDT) P athologist Signature Calcium Lvl 9.5 8.4 - 10.2 [facility] mg/dL [facility] Specimen Anatomical Collection Method Collection Time Receive d Time (Source) Location / / Volume Laterality Blood 07/15/2022 12:51 07/15/2022 1:00 AM CDT AM CDT Glen Cerna MD LAB BLOOD ORDERABLES Performing Organization Address City/[facility]/ZIP Code Phon e Number [facility] CANCER Unless otherwise noted, [address] all lab tests performed by: Division of Pathology and Laboratory Medicine [address] [place], [place] [address]d Albumin Level (07/15/2022 12:51 AM CDT) P athologist Signature Albumin Lvl 3.8 3.5 - 5.2 [facility] gm/dL [facility] CENTER Specimen Anatomical Collection Method Collection Time Receive d Time (Source) Location / / Volume Laterality Blood 07/15/2022 12:51 07/15/2022 1:00 AM CDT AM CDT Glen Cerna MD LAB BLOOD ORDERABLES Performing Organization Address City/[facility]/ZIP Code Phon e Number [facility] CANCER Unless otherwise noted, [address] all lab tests performed by: Division of Pathology and Laboratory Medicine [address] (ABNORMAL) Electrolyte Panel (07/15/2022 12:51 AM CDT) P athologist Signature Sodium Lvl 138 136 - 145 [facility] mEq/L [facility] Potassium Lvl 3.3 (L) 3.5 - 5.1 [facility] mEq/L [facility] Chloride 102 98 - 107 [facility] mEq/L [facility] CO2 26 22 - 29 [facility] mEq/L [facility] Anion Gap 10 4 - 14 [facility] mEq/L [facility] Specimen Anatomical Collection Method Collection Time Receive d Time (Source) Location / / Volume Laterality Blood 07/15/2022 12:51 07/15/2022 1:00 AM CDT AM CDT Glen Cerna MD LAB BLOOD ORDERABLES Performing Organization Address City/State/ZIP Code Phon e Number [facility] CANCER Unless otherwise noted, [address] all lab tests performed by: Division of Pathology and Laboratory Medicine [address] after 01/27/2022 Visit Diagnoses Diagnosis Start Date Allergic reaction 07/14/2022 after 01/27/2022
--- OUTSIDE RECORDS SUMMARY | 2023-01-27 11:25 | XMS REPORT | Continuity of Care Document ---
:1965 Author Organization [facility] t Address [address] [facility] [address] [place] [address] Care Team Providers Name Role Phone Danie Angeles MD Primary Care Physician Jay Arias Attending Clinician Unavailable Lucius Weber Attending Clinician Unavailable JAMAL AYOUB Attending Clinician Unavailable Sara Garrett Attending Clinician Unavailable Danie Angeles MD Attending Clinician Fransico Maxwell MD Attending Clinician Doctor Unassigned, [place] Attending Clinician Unavailable DANIE ANGELES Attending Clinician Unavailable JOSÉ MIGUEL TRISTAN Attending Clinician Unavailable VLADIMIR LIANG Attending Clinician Unavailable VLADIMIR LIANG Attending Clinician Unavailable LIN REILLY Attending Clinician Unavailable JAMAL AYOUB Admitting Clinician Unavailable Jay Arias Admitting Clinician Unavailable Payers Payer Name Policy Type Policy Number Effective Date Expiration Date S jeffery [facility] [id number] 2021 PL[place] 00:00:00 [place] [id number] 2022 Common HEALTHCARE DUAL 00:00:00 [facility] MEDICAID OF [id number] 2020 [place] 00[place] [id number] 2017 00:00:00 Problems Condition Condition Condition Status Onset Resolution Last Treating Co mments Source Name Details Category Date Date Treatment Clinician Date Endometria Endometria Disease Active 2017-11 U nivers l polyp l polyp 2- ity of 00:00: [place] [facility] Abnormal Abnormal Disease Active 2017-11 Unive rs uterine uterine 2 ity of bleeding bleeding 00:00: [place] (AUB) (AUB) [facility] Tubal Tubal Disease Active Univers ligation ligation 06-08 ity of status status 00:00: [place] [facility] Lump or Lump or Disease Active Univers mass in mass in 06-08 ity of breast breast 00:00: [address] [id number] Morbid Problem Commo n 9104 (severe) [facility] obesity - [facility] due to [facility] [id number] Essential Problem Comm on hypertensi Spirit on - [facility] [id number] Left-sided Problem Co mmon low back [facility] pain with - [facility] left[facility]sided [facility] sciatica, [facility] chronicity [id number] Dependence Problem Co mmon on other Spirit enabling - [facility] machines [facility] [id number] Obstructiv Problem Com mon e sleep Spirit apnea - [facility] (adult) (pediatric [facility] Allergies, Adverse Reactions, Alerts Allergy Allergy Status Severity Reaction(s) Onset Inactive Treating Comm ents Source Name Type Date Date Clinician Penicill DA Active U SWELLING 2021-11 [facility] ins 2-15 [place] 00:[facility]: d 00 [facility] lisinopr DA Active U ANAPHYLAXIS 2021-11 [facility] il 2-15 [place] 00:00: d 00 [facility] clarithr DA Active U ANAPHYLAXIS 2021-11 [facility] omycin 2-15 [place] 00:00: d 00 [facility] amlodipi DA Active U SWELLING 2021-11 [facility] ne 2-15 [place] 00:00: d 00 [facility] CLARITHR DRUG Active High Rash 2021-0 MD OMYCIN INGREDI 8-31 [place] 00:00: n 00 FUROSEMI DRUG Active High Swelling 2021-0 MD DE INGREDI 8-31 [place] 00:00: n 00 LISINOPR DRUG Active High Swelling 2-0 MD IL INGREDI 8-31 [place] 00:00: n 00 PENICILL Drug Active High Rash 2-0 MD INS Class 8-31 [place] 00:00: n 00 FUROSEMI DRUG Active High Swelling 2-0 MD DE INGREDI 8-31 [place] 00:00: n 00 PENICILL Drug Active High Rash 2022-0 MD INS Class 8-31 [place] 00:00: n 00 LISINOPR DRUG Active High Swelling 2022-0 MD IL INGREDI 8-31 [place] 00:00: n 00 PENICILL Drug Active High Rash 2022-0 MD INS Class 8-31 [place] 00:00: n 00 AMLODIPI DRUG Active High Swelling 2022-0 MD NE INGREDI 8-31 [place] 00:00: n 00 CLARITHR DRUG Active High Rash 2-0 MD OMYCIN INGREDI 8-31 [place] 00:00: n 00 FUROSEMI DRUG Active High Swelling 2-0 MD DE INGREDI 8-31 [place] 00:00: n 00 LISINOPR DRUG Active High Swelling 2022-0 MD [place] INGREDI 8-31 [place] 00:00: n 00 PENICILL Drug Active High Rash 2022-0 MD INS Class 8-31 [place] 00:00: n 00 AMLODIPI DRUG Active High Swelling 2022-0 MD NE INGREDI 8-31 [place] 00:00: n 00 CLARITHR DRUG Active High Rash 2022-0 MD OMYCIN INGREDI 8-31 [place] 00:00: n 00 FUROSEMI DRUG Active High Swelling 2022-0 MD DE INGREDI 8 [place] 00:00: n 00 LISINOPR DRUG Active High Swelling 2022-0 MD IL INGREDI 8- [place] 00:00: n 00 PENICILL Drug Active High Rash 2022-0 MD INS Class 8- [place] 00:00: n 00 AMLODIPI DRUG Active High Swelling 2022-0 MD NE INGREDI 8 [place] 00:00: n 00 CLARITHR DRUG Active High Rash 2-0 MD OMYCIN INGREDI 8 [place] 00:00: n 00 FUROSEMI DRUG Active High Swelling 2-0 MD DE INGREDI 07-14 [place] 00:00: n 00 LISINOPR DRUG Active High Swelling 2-0 MD IL INGREDI 07-14 [place] 00:00: n 00 PENICILL Drug Active High Rash 2022-0 MD INS Class 8- [place] 00:00: n 00 AMLODIPI DRUG Active High Swelling 2-0 MD NE INGREDI 07-14 [place] 00:00: n 00 CLARITHR DRUG Active High Rash 2-0 MD OMYCIN INGREDI 07-14 [place] 00:00: n 00 FUROSEMI DRUG Active High Swelling 2022-0 MD DE INGREDI 07-14 [place] 00:00: n 00 Penicill Drug Active Rash 2-0 Univers ins Allergy 8- ity of 00:00: [place] 00 MD [facility] Clarithr Drug Active Rash 2-0 Univers omycin Allergy 8- ity of 00:00: [place] 00 MD [facility] Lisinopr Drug Active Swelling 2021-0 Univer s il Allergy 8- ity of 00:00: [place] 00 MD [facility] Furosemi Drug Active Swelling 2021-0 Univer s de Allergy 07-14 ity of 00:00: [place] 00 MD [facility] Amlodipi Drug Active Swelling 2021-0 Univer s ne Allergy - ity of 00:00: [place] 00 MD [facility] AMLODIPI DRUG Active High Swelling 2022-0 MD NE INGREDI 8-31 [place] 00:00: n 00 AMLODIPI DRUG Active High Swelling 2022-0 MD NE INGREDI 8-31 [place] 00:00: n 00 LISINOPR DRUG Active High Swelling 2022-0 MD [place] INGREDI 8-31 [place] 00:00: n 00 PENICILL Drug Active High Rash 2022-0 MD INS Class 8-31 [place] 00:00: n 00 AMLODIPI DRUG Active High Swelling 2022-0 MD NE INGREDI 8-31 [place] 00:00: n 00 CLARITHR DRUG Active High Rash 2022-0 MD OMYCIN INGREDI 8-31 [place] 00:00: n 00 FUROSEMI DRUG Active High Swelling 2022-0 MD DE INGREDI 8-31 [place] 00:00: n 00 CLARITHR DRUG Active High Rash 2022-0 MD OMYCIN INGREDI 8-31 [place] 00:00: n 00 LISINOPR DRUG Active High Swelling 2022-0 MD IL INGREDI 8-31 [place] 00:00: n 00 PENICILL Drug Active High Rash 2022-0 MD INS Class 8-31 [place] 00:00: n 00 AMLODIPI DRUG Active High Swelling 2022-0 MD NE INGREDI 8-31 [place] 00:00: n 00 CLARITHR DRUG Active High Rash 2022-0 MD OMYCIN INGREDI 8-31 [place] 00:00: n 00 FUROSEMI DRUG Active High Swelling 2022-0 MD DE INGREDI 8-31 [place] 00:00: n 00 CLARITHR DRUG Active High Rash 2022-0 MD OMYCIN INGREDI 8-31 [place] 00:00: n 00 FUROSEMI DRUG Active High Swelling 2022-0 MD DE INGREDI 8-31 [place] 00:00: n 00 LISINOPR DRUG Active High Swelling 2022-0 MD IL INGREDI 8-31 [place] 00:00: n 00 PENICILL Drug Active High Rash 2022-0 MD INS Class 8-31 [place] 00:00: n 00 AMLODIPI DRUG Active High Swelling 2022-0 MD NE INGREDI 8-31 [place] 00:00: n 00 CLARITHR DRUG Active High Rash 2022-0 MD OMYCIN INGREDI 8-31 [place] 00:00: n 00 FUROSEMI DRUG Active High Swelling 2022-0 MD DE INGREDI 8-31 [place] 00:00: n 00 LISINOPR DRUG Active High Swelling 2022-0 MD IL INGREDI 8-31 [place] 00:00: n 00 PENICILL Drug Active High Rash 2022-0 MD INS Class 8-31 [place] 00:00: n 00 LISINOPR DRUG Active High Swelling 2022-0 MD IL INGREDI 8-31 [place] 00:00: n 00 AMLODIPI DRUG Active High Swelling 2022-0 MD NE INGREDI 8-31 [place] 00:00: n 00 CLARITHR DRUG Active High Rash 2022-0 MD OMYCIN INGREDI 8-31 [place] 00:00: n 00 FUROSEMI DRUG Active High Swelling 2022-0 MD DE INGREDI 8-31 [place] 00:00: n 00 FUROSEMI DRUG Active High Swelling 2022-0 MD DE INGREDI 8-31 [place] 00:00: n 00 LISINOPR DRUG Active High Swelling 2022-0 MD IL INGREDI 8-31 [place] 00:00: n 00 PENICILL Drug Active High Rash 2022-0 MD INS Class 8-31 [place] 00:00: n 00 PENICILL Drug Active High Rash 2022-0 MD INS Class 8-31 [place] 00:00: n 00 AMLODIPI DRUG Active High Swelling 2022-0 MD NE INGREDI 8-31 [place] 00:00: n 00 CLARITHR DRUG Active High Rash 2022-0 MD OMYCIN INGREDI 8-31 [place] 00:00: n 00 FUROSEMI DRUG Active High Swelling 2022-0 MD DE INGREDI 8-31 [place] 00:00: n 00 LISINOPR DRUG Active High Swelling 2022-0 MD IL INGREDI 8-31 [place] 00:00: n 00 PENICILL Drug Active High Rash 2022-0 MD INS Class 8-31 [place] 00:00: n 00 AMLODIPI DRUG Active High Swelling 2022-0 MD NE INGREDI 8-31 [place] 00:00: n 00 AMLODIPI DRUG Active High Swelling 2022-0 MD NE INGREDI 8-31 [place] 00:00: n 00 CLARITHR DRUG Active High Rash 2022-0 MD OMYCIN INGREDI 8-31 [place] 00:00: n 00 FUROSEMI DRUG Active High Swelling 2-0 MD DE INGREDI 07-14 [place] 00:00: n 00 LISINOPR DRUG Active High Swelling 2022-0 MD IL INGREDI 07-14 [place] 00:00: n 00 LISINOPR DRUG Active High Swelling 2022-0 MD IL INGREDI 07-14 [place] 00:00: n 00 PENICILL Drug Active High Rash 2-0 MD INS Class 07-14 [place] 00:00: n 00 AMLODIPI DRUG Active High Swelling 2022-0 MD NE INGREDI 07-14 [place] 00:00: n 00 CLARITHR DRUG Active High Rash 2-0 MD OMYCIN INGREDI 07-14 [place] 00:00: n 00 Penicill Propensi Active Nausea 0 Univer s ins ty to and/or 2-03 ity of adverse Vomiting 00:00: [place] reaction 00 Medical s Branch PENICILL Drug Active Hives 0 Univers INS Class 2-03 ity of 00:00: [place] 00 Medical Branch Penicill Propensi Active Nausea 0 Univer s ins ty to and/or 2-03 ity of adverse Vomiting 00:00: [place] reaction 00 Medical s Branch Penicill Propensi Active Nausea 2020-0 Univer s ins ty to and/or 2-03 ity of adverse Vomiting 00:00: [place] reaction 00 Medical s Branch Lisinopr Propensi Active Swelling 2017-11 Almost Univ ers il ty to 12-12 put her ity of adverse 00:00: in a coma [place] reaction 00 Medical s Branch LISINOPR DRUG Active Swelling 2017-11 Univer s IL INGREDI 1 ity of 00:00: [place] [facility] Clarithr Propensi Active Anaphylaxis 2012- U nivers omycin ty to 7 ity of adverse 00:00: [place] reaction 00 Medical s Branch CLARITHR DRUG Active Anaphylaxis Uni vers OMYCIN INGREDI 06-08 ity of 00:00: [place] 00 Medical Branch [place]ut [place] Active Unknown Common [facility] amoxicil amoxicil Active Unknown Commo n stewart stewart [facility] 7200 Drug Active Unknown Common allergy [facility] penicill penicill Active Unknown Commo n in V in V [facility] Social History Social Habit Start Date Stop Date Quantity Comments Source History of [facility] - Tobacco Use [facility] Exposure to Not sure University of SARS-CoV-2 [facility] (event) [place] Alcohol intake 2021-04-01 2021-04-01 Current University of 00:00:00 00:00:00 non-drinker of [facility] alcohol (finding) [place] Tobacco use and 2013-06-08 2013-06-08 Smokeless tobacco Un iversity of exposure 00:00:00 00:00:00 non-user [facility] Sex Ass[birth year] At [birth year] Universit y of 00:00:00 00:00:[address] [facility] Smoking Status Start Date Stop Date Source Former Smoker 2022 00:00:00 2022 00:00:00 Common [facility] Ce nter Never smoked tobacco [facility] Medications Ordered Filled Start Stop Current Ordering Indication Dosage Frequency Signature Comments Components Source Medication Medication Date Date Medication? Clinician (SIG) Name Name hydroCHLORO Yes [id number] TAKE 1 Univers thiazide 25 9-19 TABLET BY ity of mg tablet 00:00: MOUTH [place] EVERY DAY [facility] hydroCHLORO Yes [id number] TAKE 1 Univers thiazide 25 9-19 TABLET BY ity of mg tablet 00:00: MOUTH [place] [facility] predniSONE Yes Allergic 40mg Take 2 U nivers (DELTASONE) 07-15 reaction tablets i ty of 20 mg 00:00: (40 mg) by [place] tablet 00 mouth MD daily with [place] dinner. [facility] [place] predniSONE Yes Allergic 40mg Take 2 U nivers (DELTASONE) 9 reaction tablets i ty of 20 mg 00:00: (40 mg) by [place] tablet 00 mouth MD daily with [place] dinner. n [facility] [place] Losartan Losartan No 1{table QD Losartan Potassium-H Potassium-H 8-01 t} Potassium- CTZ 100-25 CTZ 100-25 00:00: HCTZ MG MG 00 100-25 MG Losartan Losartan No 1{table QD Losartan Potassium-H Potassium-H 8-01 t} Potassium- CTZ 100-25 CTZ 100-25 00:00: HCTZ MG MG 00 100-25 MG Cyclobenzap Cyclobenzap 2021- No 1{table QD Cyclobenza rine HCl 10 rine HCl 10 06-14 t_at_be peri HCl MG MG 00:00: 00:00 dtime_a 10 MG 00 :00 s_neede d} Cyclobenzap Cyclobenzap 2021- No 1{table QD Cyclobenza rine HCl 10 rine HCl 10 06-14 t_at_be peri HCl MG MG 00:00: 00:00 dtime_a 10 MG 00 :00 s_neede d} methylPREDN methylPREDN 2021- No QD methylPRED ISolone 4 ISolone 4 06-14 NISolone 4 MG MG 00:00: 00:00 MG 00 :00 hydroCHLORO 2021-0 Yes [id number] TAKE 1 Univers thiazide 25 6-08 TABLET BY ity of mg tablet 00:00: MOUTH [place] 00 EVERY DAY Medical Branch hydroCHLORO 2021-0 2021- No [id number] TAKE 1 Univers thiazide 25 6-08 09-19 TABLET BY it y of mg tablet 00:00: 00:00 MOUTH [place] 00 :00 EVERY DAY Medical Branch aspirin 81 2020-0 Yes 81mg Take 81 mg U nivers mg chewable 9-20 by mouth ity of tablet 09:37: daily. [place] [address] Medical Branch naproxen 2020-0 Yes 220mg Take 220 Univ ers sodium 9-20 mg by ity of (ALEVE) 220 09:37: mouth [place] mg tablet 56 daily. Medical Branch acetaminoph 2020-0 Yes 500mg Take 500 U nivers en 500 mg 9-20 mg by ity of tablet 09:37: mouth 4 [place] 56 (four) Medical times Branch daily. aspirin 81 2020-0 Yes 81mg Take 81 mg U nivers mg chewable 9-20 by mouth ity of tablet 09:37: daily. [place] [address] Medical Branch naproxen 2020-0 Yes 220mg Take 220 Univ ers sodium 9-20 mg by ity of (ALEVE) 220 09:37: mouth [place] mg tablet 56 daily. Medical Branch acetaminoph 2020-0 Yes 500mg Take 500 U nivers en 500 mg 9-20 mg by ity of tablet 09:37: mouth 4 [place] 56 (four) Medical times Branch daily. aspirin 81 2020-0 Yes 81mg Take 81 mg U nivers mg chewable 9-20 by mouth ity of tablet 09:37: daily. [place] [address] Medical Branch naproxen 2020-0 Yes 220mg Take 220 Univ ers sodium 9-20 mg by ity of (ALEVE) 220 09:37: mouth [place] mg tablet 56 daily. Medical Branch acetaminoph 2020-0 Yes 500mg Take 500 U nivers en 500 mg 9-20 mg by ity of tablet 09:37: mouth 4 [place] [address] (four) Medical times Branch daily. aspirin 81 2020-0 Yes 81mg Take 81 mg U nivers mg chewable 9-20 by mouth ity of tablet 09:37: daily. [place] [address] Medical Branch naproxen 2020-0 Yes 220mg Take 220 Univ ers sodium 9-20 mg by ity of (ALEVE) 220 09:37: mouth [place] mg tablet 56 daily. Medical Branch acetaminoph 2020-0 Yes 500mg Take 500 U nivers en 500 mg 9-20 mg by ity of tablet 09:37: mouth 4 [place] 56 (four) Medical times Branch daily. aspirin 81 2020-0 Yes 81mg Take 81 mg U nivers mg chewable 9-20 by mouth ity of tablet 09:37: daily. [place] [address] Medical Branch naproxen 2020-0 Yes 220mg Take 220 Univ ers sodium 9-20 mg by ity of (ALEVE) 220 09:37: mouth [place] mg tablet 56 daily. Medical Branch acetaminoph 2020-0 Yes 500mg Take 500 U nivers en 500 mg 9-20 mg by ity of tablet 09:37: mouth 4 [place] [address] ([facility]) Medical times Branch daily. aspirin 81 2020-0 Yes 81mg Take 81 mg U nivers mg chewable 9-20 by mouth ity of tablet 09:37: daily. [place] [address] Medical Branch naproxen 2020-0 Yes 220mg Take 220 Univ ers sodium 9-20 mg by ity of (ALEVE) 220 09:37: mouth [place] mg tablet 56 daily. Medical Branch acetaminoph 2020-0 Yes 500mg Take 500 U nivers en 500 mg 9-20 mg by ity of tablet 09:37: mouth 4 [place] [address] (four) Medical times Branch daily. aspirin 81 2020-0 Yes 81mg Take 81 mg U nivers mg chewable 9-20 by mouth ity of tablet 09:37: daily. [place] [address] Medical Branch naproxen 2020-0 Yes 220mg Take 220 Univ ers sodium 9-20 mg by ity of (ALEVE) 220 09:37: mouth [place] mg tablet 56 daily. Medical Branch acetaminoph 2020-0 Yes 500mg Take 500 U nivers en 500 mg 9-20 mg by ity of tablet 09:37: mouth 4 [place] [address] (four) Medical times Branch daily. methylPREDN 202-0 Yes [id number] Take by Univers ISolone 9-20 mouth ity of (MEDROL, 00:00: SEE-INSTRU [place] RHONDA,) 4 mg 00 CTIONS. Medica l tablets follow Branch package directions methylPREDN 1-0 Yes [id number] Take by Univers ISolone 9-20 mouth ity of (MEDROL, 00:00: SEE-INSTRU [place] RHONDA,) 4 mg 00 CTIONS. Medica l tablets follow Branch package directions methylPREDN 1-0 Yes [id number] Take by Univers ISolone 9-20 mouth ity of (MEDROL, 00:00: SEE-INSTRU [place] RHONDA,) 4 mg 00 CTIONS. Medica l tablets follow Branch package directions methylPREDN 1-0 Yes [id number] Take by Univers ISolone 9-20 mouth ity of (MEDROL, 00:00: SEE-INSTRU [place] RHONDA,) 4 mg 00 CTIONS. Medica l tablets follow Branch package directions methylPREDN 1-0 Yes [id number] Take by Univers ISolone 9-20 mouth ity of (MEDROL, 00:00: SEE-INSTRU [place] RHONDA,) 4 mg 00 CTIONS. Medica l tablets follow Branch package directions methylPREDN 2021-0 Yes [id number] Take by Univers ISolone 9-20 mouth ity of (MEDROL, 00:00: SEE-INSTRU [place] RHONDA,) 4 mg 00 CTIONS. Medica l tablets follow Branch package directions methylPREDN 2021-0 Yes [id number] Take by Univers ISolone 9-20 mouth ity of (MEDROL, 00:00: SEE-INSTRU [place] RHONDA,) 4 mg 00 CTIONS. Medica l tablets follow Branch package directions hydroCHLORO 2020-0 Yes [id number] TK 1 T PO Univers thiazide 25 5-18 QD ity of mg tablet 00:00: [place] 00 Medical Branch losartan 50 2020-0 Yes [id number] 50mg Take 1 Univers mg tablet 5-18 tablet by ity o f 00:00: mouth [place] 00 daily. Medical Branch hydroCHLORO 2020-0 Yes [id number] TK 1 T PO Univers thiazide 25 5-18 QD ity of mg tablet 00:00: [place] 00 Medical Branch losartan 50 2020-0 Yes [id number] 50mg Take 1 Univers mg tablet 5-18 tablet by ity o f 00:00: mouth [place] 00 daily. [facility] hydroCHLORO 2020-0 Yes [id number] TK 1 T PO Univers thiazide 25 5-18 QD ity of mg tablet 00:00: [place] 00 [facility] losartan 50 2020-0 Yes [id number] 50mg Take 1 Univers mg tablet 5-18 tablet by ity o f 00:00: mouth [place] 00 daily. Medical Branch hydroCHLORO 2020-0 Yes [id number] TK 1 T PO Univers thiazide 25 5-18 QD ity of mg tablet 00:00: [place] 00 [facility] losartan 50 2020-0 Yes [id number] 50mg Take 1 Univers mg tablet 5-18 tablet by ity o f 00:00: mouth [place] 00 daily. [facility] losartan 50 2020-0 Yes [id number] 50mg Take 1 Univers mg tablet 5-18 tablet by ity o f 00:00: mouth [place] 00 daily. [facility] losartan 50 2020-0 Yes [id number] 50mg Take 1 Univers mg tablet 5-18 tablet by ity o f 00:00: mouth [place] 00 daily. [facility] losartan 50 2020-0 Yes [id number] 50mg Take 1 Univers mg tablet 5-18 tablet by ity o f 00:00: mouth [place] 00 daily. [facility] hydroCHLORO 2020-0 2021- No [id number] TK 1 T PO Univers thiazide 25 5-18 06-08 QD ity of mg tablet 00:00: 00:00 [place] 00 :00 Medical Branch Aspirin 81 Aspirin 81 No 1{table QD Aspirin 81 81 MG 81 MG t} 81 MG Losartan Losartan No 1{table BID Losartan Potassium Potassium t} Potassium 50 MG 50 MG 50 MG hydroCHLORO hydroCHLORO No 1{table QD hydroCHLOR thiazide 25 thiazide 25 t_in_th Othiazide MG MG e_morni 25 MG ng} Losartan Losartan No 1{table BID Losartan Potassium Potassium t} Potassium 50 MG 50 MG 50 MG hydroCHLORO hydroCHLORO No 1{table QD hydroCHLOR thiazide 25 thiazide 25 t_in_th Othiazide MG MG e_morni 25 MG ng} Aspirin 81 Aspirin 81 No 1{table QD Aspirin 81 81 MG 81 MG t} 81 MG Losartan Losartan No 1{table BID Losartan Potassium Potassium t} Potassium 50 MG 50 MG 50 MG hydroCHLORO hydroCHLORO No 1{table QD hydroCHLOR thiazide 25 thiazide 25 t_in_th Othiazide MG MG e_morni 25 MG ng} Aspirin 81 Aspirin 81 No 1{table QD Aspirin 81 81 MG 81 MG t} 81 MG Losartan Losartan No 1{table QD Losartan Potassium-H Potassium-H t} Potassium- CTZ 100-25 CTZ 100-25 HCTZ MG MG 100-25 MG Aspirin 81 Aspirin 81 No 1{table QD Aspirin 81 81 MG 81 MG t} 81 MG hydroCHLORO hydroCHLORO No 1{table QD hydroCHLOR thiazide 25 thiazide 25 t_in_th Othiazide MG MG e_morni 25 MG ng} Losartan Losartan No 1{table QD Losartan Potassium-H Potassium-H t} Potassium- CTZ 100-25 CTZ 100-25 HCTZ MG MG 100-25 MG Losartan Losartan No 1{table BID Losartan Potassium Potassium t} Potassium 50 MG 50 MG 50 MG Aspirin 81 Aspirin 81 No 1{table QD Aspirin 81 81 MG 81 MG t} 81 MG Losartan Losartan No 1{table BID Losartan Potassium Potassium t} Potassium 50 MG 50 MG 50 MG Losartan Losartan No 1{table QD Losartan Potassium-H Potassium-H t} Potassium- CTZ 100-25 CTZ 100-25 HCTZ MG MG 100-25 MG hydroCHLORO hydroCHLORO No 1{table QD hydroCHLOR thiazide 25 thiazide 25 t_in_th Othiazide MG MG e_morni 25 MG ng} Immunizations Ordered Filled Immunization Date Status Comments Sourc e Immunization Name Name Flucelvax - single Flucelvax - single 2022-09-20 Completed [facility] - dose syringe dose syringe 10:15:00 [facility] Flucelvax - single Flucelvax - single 2022-09-20 Completed [facility] - dose syringe dose syringe 10:15:00 [facility] SARS-COV-2 COVID-19 2021-02-08 Completed Unive rsity of MODERNA VACCINE 00:00:00 [place] Med ical Branch SARS-COV-2 COVID-19 2021-02-08 Completed Unive rsity of MODERNA VACCINE 00:00:00 [place] [facility] ical Branch SARS-COV-2 COVID-19 2021-02-08 Completed Unive rsity of MODERNA VACCINE 00:00:00 [place] [facility] ical Branch SARS-COV-2 COVID-19 2021-02-08 Completed Unive rsity of MODERNA VACCINE 00:00:00 [place] [facility] ical Branch SARS-COV-2 COVID-19 2021-02-08 Completed Unive rsity of MODERNA VACCINE 00:00:00 [place] [facility] ical Branch SARS-COV-2 COVID-19 2021-02-08 Completed Unive rsity of MODERNA 12+ YRS 00:00:00 [place] [facility] ical VACCINE Branch SARS-COV-2 COVID-19 2021-02-08 Completed Unive rsity of MODERNA 12+ YRS 00:00:00 [place] [facility] ical VACCINE Branch SARS-COV-2 COVID-19 2021-01-11 Completed Unive rsity of MODERNA VACCINE 00:00:00 [place] [facility] ical Branch SARS-COV-2 COVID-19 2021-01-11 Completed Unive rsity of MODERNA VACCINE 00:00:00 [place] [facility] ical Branch SARS-COV-2 COVID-19 2021-01-11 Completed Unive rsity of MODERNA VACCINE 00:00:00 [place] [facility] ical Branch SARS-COV-2 COVID-19 2021-01-11 Completed Unive rsity of MODERNA VACCINE 00:00:00 [place] [facility] ical Branch SARS-COV-2 COVID-19 2021-01-11 Completed Unive rsity of MODERNA VACCINE 00:00:00 [place] [facility] ical Branch SARS-COV-2 COVID-19 2021-01-11 Completed Unive rsity of MODERNA 12+ YRS 00:00:00 [place] [facility] ical VACCINE Branch SARS-COV-2 COVID-19 2021-01-11 Completed Unive rsity of MODERNA 12+ YRS 00:00:00 [facility] ical VACCINE Branch Influenza Virus 2020-12-17 Completed Universit y of Vaccine Quad .5 mL 00:00:00 [place] Medical IM 6+ MO Branch Influenza Virus 2020-12-17 Completed Universit y of Vaccine Quad .5 mL 00:00:00 [place] Medical IM 6+ MO Branch Influenza Virus 2020-12-17 Completed Universit y of Vaccine Quad .5 mL 00:00:00 [place] Medical IM 6+ MO Branch Influenza Virus 2020-12-17 Completed Universit y of Vaccine Quad .5 mL 00:00:00 [place] Medical IM 6+ MO Branch Influenza Virus 2020-12-17 Completed Universit y of Vaccine Quad .5 mL 00:00:00 [place] Medical IM 6+ MO Branch Influenza Virus 2020-12-17 Completed Universit y of Vaccine Quad .5 mL 00:00:00 [place] Medical IM 6+ MO Branch Influenza Virus 2020-12-17 Completed Universit y of Vaccine Quad .5 mL 00:00:00 [facility] 6+ MO Branch TDAP (ADACEL) 2018-04-18 Completed University of VACCINE 00:00:00 [facility] TDAP (ADACEL) 2018-04-18 Completed University of VACCINE 00:00:00 [facility] TDAP (ADACEL) 2018-04-18 Completed University of VACCINE 00:00:00 [facility] TDAP (ADACEL) 2018-04-18 Completed University of VACCINE 00:00:00 [facility] TDAP (ADACEL) 2018-04-18 Completed University of VACCINE 00:00:00 [facility] TDAP (ADACEL) 2018-04-18 Completed University of VACCINE 00:00:00 [facility] TDAP (ADACEL) 2018-04-18 Completed University of VACCINE 00:00:00 [facility] Td 2005-06-08 Completed University of 00:00:00 [facility] Td 2005-06-08 Completed University of 00:00:00 [facility] Td 2005-06-08 Completed University of 00:00:00 [facility] Td 2005-06-08 Completed University of 00:00:00 [facility] Td 2005-06-08 Completed University of 00:00:00 [facility] Td 2005-06-08 Completed University of 00:00:00 [facility] Td 2005-06-08 Completed University of 00:00:00 [facility] Vital Signs Vital Name Observation Time Observation Value Comments Source height 2022-09-20 09:50:00 63.00 [in_i] Common [facility] weight 2022-09-20 09:50:00 301.1 [lb_av] [facility] temperature 2022-09-20 09:50:00 97.5 [degF] Common [facility] bmi 2022-09-20 09:50:00 53.33 kg/m2 [facility] oximetry 2022-09-20 09:50:00 96 % [facility] respiratory rate 2022-09-20 09:50:00 18 /min Comm on [facility] blood pressure 2022-09-20 09:50:00 142 mm[Hg] Common [facility] systolic [facility] blood pressure 2022-09-20 09:50:00 76 mm[Hg] [facility] diastolic [facility] height 2022-06-14 14:00:00 63.00 [in_i] [facility] weight 2022-06-14 14:00:00 305.0 [lb_av] [facility] temperature 2022-06-14 14:00:00 97.0 [degF] [facility] bmi 2022-06-14 14:00:00 54.02 kg/m2 [facility] oximetry 2022-06-14 14:00:00 98 % [facility] respiratory rate 2022-06-14 14:00:00 18 /min Comm on [facility] blood pressure 2022-06-14 14:00:00 145 mm[Hg] Common [facility] - systolic [facility] blood pressure 2022-06-14 14:00:00 88 mm[Hg] [facility] diastolic [facility] Systolic blood 2021-08-03 14:36:00 162 mm[Hg] Univer sity of pressure [facility] Diastolic blood 2021-08-03 14:36:00 89 mm[Hg] Unive rsity of pressure [facility] Heart rate 2021-08-03 14:35:00 62 /min Universi ty of [facility] Body height 2021-08-03 14:35:00 167.6 cm Universi ty of [facility] Body weight 2021-08-03 14:35:00 134.718 kg Universi ty [facility] BMI 2021-08-03 14:35:00 47.94 kg/m2 Universi ty [facility] Systolic blood 2022-07-15 05:40:39 119 mm[Hg] Univer sity of pressure [place] [facility] Diastolic blood 2022-07-15 05:40:39 71 mm[Hg] Unive rsity of pressure [place] [facility] Heart rate 2022-07-15 05:40:39 91 /min [facility] Body temperature 2022-07-15 05:40:39 36.78 Yamilet [facility] Respiratory rate 2022-07-15 05:40:39 18 /min [facility] Oxygen saturation in 2022-07-15 05:40:39 100 /min [facility] Arterial blood by Stephy carrera Pulse oximetry [facility] Body height 2022-07-15 04:43:00 165.1 cm Universi ty of [facility] Body weight 2022-07-15 04:43:00 138 kg Universi ty [facility] BMI 2022-07-15 04:43:00 50.63 kg/m2 Universi ty [facility] Procedures Procedure Date / Time Performing Clinician Source Performed GLUCOSE LEVEL 2022-07-15 05:51:00 [facility] BLOOD UREA NITROGEN 2022-07-15 05:51:00 Glen Cerna [facility] ELECTROLYTE PANEL 2022-07-15 05:51:00 Glen Cerna [facility] SERUM CREATININE 2022-07-15 05:51:00 Glen Cerna [facility] .GLOMERULAR FILTRATION 2022-07-15 05:51:00 Glen C[facility] CALCIUM LEVEL TOTAL 2022-07-15 05:51:00 Glen Cerna [facility] ALBUMIN LEVEL 2022-07-15 05:51:00 Glen Cerna [facility] ALKALINE PHOSPHATASE 2022-07-15 05:51:00 Glen Cerna [facility] ALANINE AMINOTRANSFERASE 2022-07-15 05:51:00 Glen Cerna [facility] ASPARTATE AMINOTRANSFERASE 2022-07-15 05:51:00 Glen Cerna [facility] TOTAL PROTEIN 2022-07-15 05:51:00 Glen Cerna [facility] FRACTIONATED BILIRUBIN 2022-07-15 05:51:00 Glen [facility] COMPLETE BLOOD COUNT W/ 2022-07-15 05:51:00 [facility] DIFFERENTIAL [facility] COMPREHENSIVE METABOLIC 2022-07-15 05:51:00 [facility] PANEL [facility] MAGNESIUM LEVEL 2022-07-15 05:51:00 Glen Cerna [facility] PHOSPHORUS LEVEL 2022-07-15 05:51:00 Glen Cerna [facility] Results CBC 2022-07-15 05:51:00 Glen Cerna [facility] MANUAL DIFFERENTIAL 2022-07-15 05:51:00 Glen Cerna [facility] DME/SUPPLY JUSTIFICATION 2021-08-12 05:01:00 Doctor Unassigned, [facility] Encounters Start End Encounter Admission Attending Care Care Encounter Source Date/Time Date/Time Type Type Clinicians Facility Department ID 2022-10-08 Outpatient Arias, STLMLC STLMLC [id number] Common 10:28:00 Jay [facility] 2022-10-06 Outpatient Arias, STLMLC STLMLC [id number] Common 10:00:03 Jay [facility] 2022-09-20 Outpatient Arias, STLMLC STLMLC [id number] Common 09:55:04 Jay [facility] 2022-09-17 Outpatient Arias, STLMLC STLMLC [id number] Common 15:49:02 Jay [facility] 2022-07-14 Outpatient Arias, STLMLC STLMLC [id number] Common 14:28:02 Jay [facility] 2022-06-29 Outpatient Weber, STLMLC STLMLC [id number] Common 16:24:01 Avnee [facility] 2022-06-14 Outpatient Weber, STLMLC STLMLC [id number] Common 13:33:03 Avnee [facility] 2021-09-13 Outpatient R ANITRA [facility] [id number] Univers 12:22:15 [facility] 2021-09-13 Outpatient R ANITRA [facility] [id number] Univers 05:31:06 [facility] 2022-11-05 2022-11-05 (TEL) STLMLC STLMLC [id number] Co mmon 00:00:00 00:00:00 [facility] 2022-10-28 2022-10-28 Outpatient MYRON Garrett FAITHPM LULÚ [id number] [facility] 00:00:00 00:00:00 Sara Frank [facility] 2022-09-20 2022-09-20 PREV VISIT STLMLC STLMLC [id number] Common 00:00:00 00:00:00 EST AGE [facility] 40-64 - [facility] 2022-09-16 2022-09-16 (TEL) STLMLC STLMLC [id number] Co mmon 00:00:00 00:00:00 [facility] 2022-09-02 2022-09-02 [facility] [id number] Univers 00:00:00 00:00:00 [facility] [id number] it y of [place] 4.2.7.2.686 Brian as ROSHAN?BLEA [id number] [address] OFFICE [facility] 2022-07-31 2022-07-31 [facility] [id number] Univers 00:00:00 00:00:00 [facility] [id number] it y of [place] 4.2.7.2.686 Brian as ROSHAN?BLEA [phone] [address] 2022-07-14 2022-07-15 Emergency ER [facility], 1.2.840.1 [id number] Univers 23:49:00 02:30:00 Fransico 74398.1.1 ity of 3.412.2.7 [place] .3.342121 MD Alarcon8 [facility] 2022-07-14 2022-07-15 Emergency [facility], 1.2.840.1 [id number] Univers 23:49:00 02:30:00 Fransico 01708.1.1 ity of 3.412.2.7 [place] .3.501223 MD Lopez [facility] 2022-07-14 2022-07-14 Travel 1.2.840.1 1.2.527.356 [id number] Univers 00:00:00 00:00:00 91554.1.1 350.1.13.41 ity of 3.412.2.7 [place].3.698 [place] .3.273936 084.8 MD Lopez [facility] 2022-07-14 2022-07-14 Travel 1.2.840.1 1.2.910.522 [id number] Univers 00:00:00 00:00:00 46729.1.1 350.1.13.41 ity of 3.412.2.7 2.2.7.3.698 Farhad Alarcon3.047231 084.8 .8 [facility] 2022-06-23 2022-06-23 (TEL) [facility] [id number] Co mmon 00:00:00 00:00:00 [facility] 2022-06-14 2022-06-14 [facility]ICE [facility] [id number] Co mmon 00:00:00 00:00:00 VISIT NEW [facility] it PT LEVEL 4 - [facility] 2022-04-21 2022[facility]04-21 [facility] 1.2.840.114 [id number] Univers 00:00:00 00:00:00 [facility] 350.1.13.10 it y of [place] 4.2.7.2.686 Brian as ROSHAN?BLEA [phone] [address] MEDICAL OFFICE [facility] 2021-08-30 2021-08-[address] [facility] 1.2.840.114 [id number] Univers 00:00:00 00:00:00 [facility] 350.1.13.10 it y of [place] 4.2.7.2.686 Brian as Roshan?Blea [phone] [address] Office [facility] 2021-08-12 2021-08-12 Orders Doctor WELCH 1.2.840.114 [id number] Univers 00:00:00 00:00:00 Only Unassigned, BOUBACAR 350.1.13.10 ity of [place] [facility] 4.2.7.2.686 Brian as [phone] [address] 2021-08-03 2021-08-[address] [facility] 1.2.840.114 [id number] Univers 09:26:41 09:41:41 Visit [facility] 350.1.13.10 it y of [place] 4.2.7.2.686 Brian as Roshan?Blea [phone] [address] Medical Office Building 2021-08-03 2021-08-03 Outpatient R TAYLAGRIS [facility] [id number] Univers 09:15:00 09:15:00 DANIE [facility] 2021-06-22 2021-06-22 Outpatient R ABITORIBIORizwan [facility] [id number] Univers 13:40:00 13:40:00 GILDAANDREWS [facility] 2021-06-03 2021-06-03 Outpatient R AZUL [facility] [id number] Univers 15:00:00 15:00:00 AZUL [facility] 2021-06-03 2021-06-03 Out[facility] R [facility] [id number] Univers 10:00:00 10:00:00 CELSOLUIGI [facility] 2021-05-01 2021-05-01 Outpatient R KARTHIK [facility] [id number] Univers 09:00:00 09:00:00 DANIE [facility] 2021-04-01 2021-04-01 Outpatient R AZUL [facility] [id number] Univers 15:00:00 15:00:00 CELSOLUIGI [facility] 2021-03-31 2021-03-31 Outpatient R KARTHIK [facility] [id number] Univers 09:30:00 09:30:00 DANIE [facility] 2021-03-12 2021-03-12 Outpatient R AZUL [facility] [id number] Univers 19:30:00 19:30:00 CELSOMIREYANETTIE [facility] 2021-03-09 2021-03-09 Outpatient R [facility] [id number] Univers 09:00:00 09:00:00 [facility] 2021-03-04 2021-03-04 Outpatient R ANITRA [facility] [id number] Univers 10:30:00 10:30:00 JAMAL [facility] 2021-02-18 2021-02-18 Outpatient R KEVEN LIANGUMM [facility] [id number] Univers 13:30:00 13:30:00 AZULKEVENUMM [facility] 2021-02-08 2021-02-08 Outpatient [facility] [id number] Univers 09:50:00 09:50:00 ity [facility] 2021-02-04 2021-02-04 Outpatient Nicole HUNTLEYIVETH [facility] [id number] Univers 10:15:00 10:15:00 JAMAL [facility] 2021-01-29 2021-01-29 [facility] [id number] Univers 11:30:00 11:30:00 JAMAL [facility] 2021-01-11 2021-01-11 Outpatient [facility] [id number] Univers 09:40:00 09:40:00 ity [facility] 2021-01-10 2021-01-10 Outpatient [facility] [id number] Univers 14:45:00 14:45:00 ity [facility] 2020-12-23 2020-12-23 Outpatient R AZULKEVENALRito [facility] [id number] Univers 14:00:00 14:00:00 CHRISTIANEKEVEN SHEFFIELDUMM [facility] 2020-12-19 2020-12-19 Outpatient R [facility] [id number] Univers 09:00:00 09:00:00 ity [facility] 2020-12-17 2020-12-17 Outpatient Nicole REILLY [facility] [id number] Univers 09:20:00 09:20:00 LIN dove [facility] Results Test Description Test Time Test Comments Results Result Comments Source SURGICAL 2022-11-01 17:47:00 Test Item Value Reference Range Interpretation Comme nts SURGICAL RUN DATE: (test 12/19/22 [facility] Korey Tan d - LAB PAGE 1 RUN TIME: 1747 Specimen Inquiry RUN USER: INTERFACE code = PATIENT: CARLOS ANDRE [id number] LOC: [place] U #: [id number] AGE/SX: 57/F ROOM: RE10/28/22[facility]: Sara Garrett MD : 67 BED: DIS: STATUS: PRE SDC TLOC: SPEC #: [id number] RECD: 10/29/22848 STATUS: KARLOS RADHA #: [id number] CL[place]: 10/28/22- [address] [facility] [address]: Sara Garrett MD ENTERE SP TYPE: SURGICAL OTHR DR: Jay Arias DO ORDERED: [id number], ANATOMIC SPEC, SPECIM EN TRACK COPIES TO: Sara Garrett MD [address] [place] [address] [address] [place] [address] Jay Arias DO [address] [place] [address] [address] [place] [address] PROCEDURES: 883 05 (11/01/22-1513) SPECIMEN TRACK (10/29/22) TISSUES: A. POLYP - INTRAUTERINE POLYP FINAL BIMAL GNOSIS Uterus, endometrium, curettings:- Endometrial polyp Comment: Negative for atypia/malignan cy. Suggest clinical correlation. GROSS DESCRIPTION Polyp. Received source undetermined consists of mul tiple fragments of pink-christy tissuefragments in a suction sac measuring aggregate of 2 x 1.2 x 0.3 c m. Entirely submitted asA1. Technical tissue processing and slide preparation performed at [employer],[id number] , [place] [address] Unless gross only, the diagnosis is based upon micr oscopic examination.Immunohistochemistry: This test was developed and its performance characteristicsd etermined by this laboratory. It has not been approved nor does it need approval by the USFDA. Appro priate positive and negative controls are reviewed and judged to be acceptable.This laboratory i s certified under the Clinical Laboratory Improvement Amendments (CLIA-88)as qualified to per form high complexity clinical laboratory testing. CONTINUED ON NEXT PAGE RUN DATE: 11/01/22 [facility] LAB PAGE 2 RUN TIME: 1747 Specimen Inquiry RUN USER: INTERFACE SPEC #: [id number] PATIENT: CARLOS CARRILLO #[id number] (Continued) - MICROSCOPIC DESCRIPTION Mi croscopic examination is performed on all specimens and the findings areincorporated into the final diagnosis. Please see nancy sanz for findings. Signed SIGNATURE ON FILE Storm Cote 11/01/22 1747 END OF REPORT HCG SERUM [id number] 16:13:00 Test Item Value Reference Range Interpretation Comments HCG SERUM QUAL (test SERUM NEGATIVE SCREEN NEGATIVE code = HCGQL) - XR CHEST 1 [id number] 14:16:00 [facility] 1965 Sex: F Name: CARLOS CARRILLO [facility] : 1965 Age/S: 57 / F [address] Unit #: [id number] Loc: [place] [address] Phys: April Poe MD Acct: [id number] Dis Date: Status: PRE WIC PHONE #: [phone] Exam Date: 10/28/2022 1410 FAX #: Reason: PRE SURGERY EXAMS: CPT: [id number] XR CHEST 1 V 7 1045 Fluoro Time: DAP (Gy m2): Air Kerma (mGy): EXAMINATION: - XR CHEST 1 V HISTORY: Preop COMPARISON: None. LOCATION CODE: C3 FINDINGS: Single frontal view of the chest is submitted for evaluation. The lungs are clear. The cardiac silhouette, mediastinum and pulmonary vasculature are unremarkable. The regional osseous structures are intact IMPRESSION: No acute radiographic abnormality at 1416 Reported and signed by: Keeley Flower M.D.CC: Sara Garrett MD; April Poe MD; [facility] Hugo HERMAN PAGE 1 Signed Report Name: CARLOS CARRILLO [facility] : 1965 Age/S: 57 / F [id number] Unit #: [id number] Loc: [place] [address] Phys: April Poe MD Acct: [id number] Dis Date: Status: PRE [facility] PHONE #: [phone] Exam Date: 10/28/2022 1410 FAX #: Reason: PRE SURGERY EXAMS: CPT: [id number] XR CHEST 1 V 46148 Fluoro Time: DAP (Gy m2): Air Kerma (mGy): (Continued) Technologist: Mandeep Jeff, RT(R)(CT) Trnscb Date/Time: 10/28/2022 (141) t.[id number] Orig Print D/T: S: 10/28/2022 (5600) PAGE 2 Signed ReportTHROMBOPLASTIN TIME [id number] 14:14:00 Test Item Value Reference Range Interpretation Comments THROMBOPLASTIN TIME PARTIAL 36.6 SECONDS 26-35 H (test code = PTT) COVID 19 INHOUSE [id number] 14:08:00 Test Item Value Reference Range Interpretation Comments COVID 19 INHOUSE AG NEGATIVE Negative Per manu facturer, (test code = negative result s should [id number]) be treated aspr esumptive and, if inconsi stent with clinical signs andsymptoms or necessary for patient man agement, should betested with an alternative mol ecular assay. Negative resultsdo not preclude SA RS-CoV-2 infection and s hould not be usedas the s ole basis for patient man agement decisions. Nega tive results should be considered in t he context of apatient's r ecent exposures, hist ory, presence of cli nicalsigns and symptoms co nsistent with COVID-19. BASIC METABOLIC [id number] 14:08:00 Test Item Value Reference Range Interpretation Comments SODIUM (test code 142 mmol/L 134-147 N = NA) POTASSIUM (test 3.8 mmol/L 3.4-5.0 N code = K) CHLORIDE (test 107 mmol/L 100-108 N code = CL) CARBON DIOXIDE 32 mmol/L 21-32 N (test code = CO2) ANION GAP (test 3.0 GAP calc 4.0-15.0 L code = GAP) GLUCOSE (test code 96 MG/DL 70-110 N = GLU) BLOOD UREA 16 MG/DL 7-18 N NITROGEN (test code = BUN) GLOMERULAR >=60 max >60 The Glomerular FILTRATION RATE estimate estGFR Filtratio n Rate is a (test code = GFR) calculated parameterbased on serum Creatinin e, patient age and sex. GFR valuesless than 60 mL/min/1.73 square meters are madyson cative ofChronic Kidne y Disease. Values less than 15 mL/min/1.73squa re meters indicate Kidney failure. The calculation for GFR is based on the CK D-EPI (2020) calculat ion. This formulais race indifferent and is the recommended formula for GFR by the National Kidney Foundation for Adults.The GFR will not calculate i f the sex is unknown or if thepatient's ag e is <18 years. CREATININE (test 0.9 MG/DL 0.6-1.0 N code = CREAT) CALCIUM (test code 9.3 MG/DL 8.5-10.1 N = CA) HCG SERUM [id number] 14:08:00 Test Item Value Reference Range Interpretation Comments HCG SERUM QUAL (test code = HCGQL) SCREEN NEGATIVE CBC W/AUTO [id number] 13:57:00 Test Item Value Reference Range Interpretation Comments WHITE BLOOD CELL (test code = 5.8 K/mm3 3.5-11.0 N WBC) RED BLOOD CELL (test code = 4.79 M/mm3 4.70-6.10 N RBC) HEMOGLOBIN (test code = HGB) 11.5 G/DL 10.4-14.9 N HEMATOCRIT (test code = HCT) 35.5 % 31.5-44.1 N MEAN CELL VOLUME (test code = 74.1 Fl 84.5-98.6 L MCV) MEAN CELL HGB (test code = MCH) 24.0 pg 27.0-34.2 L MEAN CELL HGB CONCETRATION 32.4 G/DL 31.5-34.0 N (test code = MCHC) RED CELL DISTRIBUTION WIDTH 14.6 SD 11.5-14.5 H (test code = RDW) PLATELET COUNT (test code = 351 K/mm3 150-450 N PLT) MEAN PLATELET VOLUME (test code 10.30 fL 7.0-10.5 N = MPV) NEUTROPHIL % (test code = NT%) 49.6 % 40-76 N IMMATURE GRANULOCYTE % (test 0.3 % 0.0-5.0 N code = IG%) LYMPHOCYTE % (test code = LY%) 32.9 % 20.5-51.1 N MONOCYTE % (test code = MO%) 6.8 % 1.7-9.3 N EOSINOPHIL % (test code = EO%) 9.9 % 0.0-6.0 H BASOPHIL % (test code = BA%) 0.5 % 0.0-2.0 N NUCLEATED RBC % (test code = 0.0 /100WBC% 0.0-1.0 N NRBC%) NEUTROPHIL # (test code = NT#) 2.9 K/mm3 1.8-7.6 N IMMATURE GRANULOCYTE # (test 0.02 x10 3/uL 0.00-0.03 N code = IG#) LYMPHOCYTE # (test code = LY#) 1.9 K/mm3 0.6-3.2 N MONOCYTE # (test code = MO#) 0.4 K/mm3 0.3-1.1 N EOSINOPHIL # (test code = EO#) 0.6 K/mm3 0.0-0.4 H BASOPHIL # (test code = BA#) 0.0 K/mm3 0.0-0.1 N NUCLEATED RBC # (test code = 0.0 K/mm3 0.0-0.1 N NRBC#) MANUAL DIFF REQUIRED (test code NO DIFF/SCN CRITERIA = MDIFF) Phosphorus [id number] 06:32:41 Test Item Value Reference Range Interpretation Comments Phosphorus (test code = 2777-1) 3.9 mg/dL 2.5-4.5 [facility] [id number] 06:32:41 Test Item Value Reference Range Interpretation Comments Phosphorus (test code = 2777-1) 3.9 mg/dL 2.5-4.5 [facility] [id number] 06:32:40 Test Item Value Reference Range Interpretation Comments Calcium Lvl (test code = 94541-6) 9.5 mg/dL 8.4-10.2 [facility] [id number] 06:32:40 Test Item Value Reference Range Interpretation Comments Calcium Lvl (test code = 44525-1) 9.5 mg/dL 8.4-10.2 [facility] [id number] 06:32:39 Test Item Value Reference Range Interpretation Comments Albumin Lvl (test code 3.8 See_Comment [Aut omated message] The = 4102) system which ge nerated this result tra nsmitted reference range : 3.5 - 5.2 gm/dL. The refe rence range was not used to interpret this result as normal/abnormal . [facility] [id number] 06:32:39 Test Item Value Reference Range Interpretation Comments Albumin Lvl (test code 3.8 See_Comment [Aut omated message] The = 5405) system which ge nerated this result tra nsmitted reference range : 3.5 - 5.2 gm/dL. The refe rence range was not used to interpret this result as normal/abnormal . [facility] Aminotransferase 2022-07-15 06:32:38 Test Item Value Reference Range Interpretation Comments AST (test code = 13 U/L See_Comment [Automated message] The 1920-06) system which ge nerated this result transmit navjot reference range : <=32. The reference range was not used to interpr et this result as shannon l/abnormal. [facility] Aminotransferase 2022-07-15 06:32:38 Test Item Value Reference Range Interpretation Comments AST (test code = 1920-06) 13 U/L <=32 [facility] [id number] 06:32:37 Test Item Value Reference Range Interpretation Comments Sodium Lvl (test code = 138 See_Comment [Au tomated message] 2951-2) The system [employer] generated this result transmitted ref erence range: 136 - 14 5 mEq/L. The refe rence range was not u sed to interpret this result as normal/abnor mal. Potassium Lvl (test code 3.3 See_Comment L [A utomated message] = 2823-3) The system [employer] generated this result transmitted ref erence range: 3.5 - 5. 1 mEq/L. The refe rence range was not u sed to interpret this result as normal/abnor mal. Chloride (test code = 102 See_Comment [Auto mated message] ) The system octoScope generated this result transmitted ref erence range: 98 - 107 mEq/L. The refe rence range was not u sed to interpret this result as normal/abnor mal. CO2 (test code = 2028-07) 26 See_Comment [A utomated message] The system octoScope generated this result transmitted ref erence range: 22 - 29 mEq/L. The reference r angie was not used to interpret this result as normal/abnor mal. Anion Gap (test code = 10 See_Comment [Aut omated message] 08393-3) The system octoScope generated this result transmitted ref erence range: 4 - 14 m Eq/L. The reference r angie was not used to interpret this result as normal/abnor mal. Lab Interpretation (test Abnormal code = 70003-0) [facility] [id number] 06:32:37 Test Item Value Reference Range Interpretation Comments Sodium Lvl (test code = 138 See_Comment [Au tomated message] 2951-2) The system octoScope generated this result transmitted ref erence range: 136 - 14 5 mEq/L. The refe rence range was not u sed to interpret this result as normal/abnor mal. Potassium Lvl (test code 3.3 See_Comment L [A utomated message] = 8763-3) The system octoScope generated this result transmitted ref erence range: 3.5 - 5. 1 mEq/L. The refe rence range was not u sed to interpret this result as normal/abnor mal. Chloride (test code = 102 See_Comment [Auto mated message] 0) The system [employer]oScope generated this result transmitted ref erence range: 98 - 107 mEq/L. The refe rence range was not u sed to interpret this result as normal/abnor mal. CO2 (test code = 2027-) 26 See_Comment [A utomated message] The system octoScope generated this result transmitted ref erence range: 22 - 29 mEq/L. The reference r angie was not used to interpret this result as normal/abnor mal. Anion Gap (test code = 10 See_Comment [Aut omated message] 14658-3) The system octoScope generated this result transmitted ref erence range: 4 - 14 m Eq/L. The reference r angie was not used to interpret this result as normal/abnor mal. Lab Interpretation (test Abnormal code = 80086-9) [facility] [id number] 06:32:36 Test Item Value Reference Range Interpretation Comments Glucose Level (test code 121 mg/dL 70-99 H Eff ective 06/09/16, = 2345-7) the glucose reference inter vals have been updat ed based on [place] Diabetes Associ ation guidelines (Standards of Medical Care in Diabetes 2016. Diabetes Care 2 016; 39: S13-S22).Fa sting blood glucose:Normal: 70-99 mg/dLImpa ired fasting glucose (increased risk for diabetes or pre-diabetes): 100-125 mg/dLDiabetes mellitus: >/=12 6 mg/dL Random bl ood glucose:Normal: 70-199 mg/dLNot e: Random glucose >100 mg/dL is associ ated with increased risk for diabetes Lab Interpretation (test Abnormal code = 63931-1) [facility] [id number] 06:32:36 Test Item Value Reference Range Interpretation Comments Glucose Level (test code 121 mg/dL 70-99 H Eff ective 06/09/16, = 2345-7) the glucose reference inter vals have been updat ed based on [place] an Diabetes Associ ation guidelines (Standards of Medical Care in Diabetes 2016. Diabetes Care 2 016; 39: S13-S22).Fa sting blood glucose:Normal: 70-99 mg/dLImpa ired fasting glucose (increased risk for diabetes or pre-diabetes): 100-125 mg/dLDiabetes mellitus: >/=12 6 mg/dL Random bl ood glucose:Normal: 70-199 mg/dLNot e: Random glucose >100 mg/dL is associ ated with increased risk for diabetes Lab Interpretation (test Abnormal code = 73741-6) [facility] HospitalFractionated [id number] 06:32:35Bili Total<0.3<=1.2 mg/dLUT [facility]UnMethod[facility] Children[facility] HospitalFractionated [id number] 06:32:35Bili Total<0.3<=1.2 mg/dLUT [facility]ITALUnMethod[facility] Children's HospitalGlomerular Filtration [id number] 06:32:34 Test Item Value Reference Range Interpretation Comments eGFR-AA (test code = 63 See_Comment Normal eGFR: >= 60 90103-1) mL/min/1.73 m2N ote: The eGFR is dannielle culated using the CKD-E PI equation. The e GFR declines with a ge. eGFR <60 mL/min /1.73 m2 is considere d as "decreased". Th is equation should only be used for pat ients 18 and older. According to th e National Kidney [employer]'s Ki lizethey Disease Outcome Quality Initiat radha (KDOQI) classif ication and 2012 Kidney Disease Improvi ng Global Outcomes (KDIGO) Clinica l Practice Guidel ine, the stage of CK D should be categ orized based on estima navjot GFR. Stage Desc ription GFR mL/min/1.73 m21 Normal or high GFR >=902 Mildly de creased GFR 60-893a Mil dly to moderately decr eased GFR 45-593b Mod erately to severely dec reased GFR 30-444 Belkis rely decreased GFR 1 5-295 Kidney failure <15 [Automated mess age] The system octoScope generated this result transmitted ref erence range: >=60 mL/min/1.73 sq. m. The reference range was not used to int erpret this result as normal/abnormal . eGFR-ELYSIA (test code = 54 See_Comment L Normal eGFR: >= 60 96387-0) mL/min/1.73 m2N ote: The eGFR is dannielle culated using the CKD-E PI equation. The e GFR declines with a ge. eGFR <60 mL/min /1.73 m2 is considere d as "decreased". Th is equation should only be used for pat ients 18 and older. According to th e National Kidney [employer]'s Ki dney Disease Outcome Quality Initiat radha (KDOQI) classif ication and 2012 Kidney Disease Improvi ng Global Outcomes (KDIGO) Clinica l Practice Guidel ine, the stage of CK D should be categ orized based on estima navjot GFR. Stage Desc ription GFR mL/min/1.73 m21 Normal or high GFR >=902 Mildly de creased GFR 60-893a Mil dly to moderately decr eased GFR 45-593b Mod erately to severely dec reased GFR 30-444 Belkis rely decreased GFR 1 5-295 Kidney failure <15 [Automated mess age] The system octoScope generated this result transmitted ref erence range: >=60 mL/min/1.73 sq. m. The reference range was not used to int erpret this result as normal/abnormal . Lab Interpretation Abnormal (test code = 34944-2) [facility] Rate 2022-07-15 06:32:34 Test Item Value Reference Range Interpretation Comments eGFR-AA (test code = 63 See_Comment Normal eGFR: >= 60 61999-2) mL/min/1.73 m2N ote: The eGFR is dannielle culated using the CKD-E PI equation. The e GFR declines with a ge. eGFR <60 mL/min /1.73 m2 is considere d as "decreased". Th is equation should only be used for pat ients 18 and older. According to th e National Kidney Foundation's dney Disease Outcome Quality Initiat radha (KDOQI) classif ication and 2012 Kidney Disease Improvi ng Global Outcomes (KDIGO) Clinica l Practice Guidel ine, the stage of CK D should be categ orized based on estima navjot GFR. Stage Desc ription GFR mL/min/1.73 m21 Normal or high GFR >=902 Mildly de creased GFR 60-893a Mil dly to moderately decr eased GFR 45-593b Mod erately to severely dec reased GFR 30-444 Belkis rely decreased GFR 1 5-295 Kidney failure <15 [Automated mess age] The system octoScope generated this result transmitted ref erence range: >=60 mL/min/1.73 sq. m. The reference range was not used to int erpret this result as normal/abnormal . eGFR-ELYSIA (test code = 54 See_Comment L Normal eGFR: >= 60 97618-2) mL/min/1.73 m2N ote: The eGFR is dannielle culated using the CKD-E PI equation. The e GFR declines with a ge. eGFR <60 mL/min /1.73 m2 is considere d as "decreased". Th is equation should only be used for pat ients 18 and older. According to th e National Kidney Foundation's dney Disease Outcome Quality Initiat radha (KDOQI) classif ication and 2012 Kidney Disease Improvi ng Global Outcomes (KDIGO) Clinica l Practice Guidel ine, the stage of CK D should be categ orized based on estima navjot GFR. Stage Desc ription GFR mL/min/1.73 m21 Normal or high GFR >=902 Mildly de creased GFR 60-893a Mil dly to moderately decr eased GFR 45-593b Mod erately to severely dec reased GFR 30-444 Belkis rely decreased GFR 1 5-295 Kidney failure <15 [Automated mess age] The system octoScope generated this result transmitted ref erence range: >=60 mL/min/1.73 sq. m. The reference range was not used to int erpret this result as normal/abnormal . Lab Interpretation Abnormal (test code = 30626-4) [facility]Total [id number] 06:32:33 Test Item Value Reference Range Interpretation Comments Total Protein (test code = 2885-2) 6.4 g/dL 6.4-8.3 [facility] [id number] 06:32:33 Test Item Value Reference Range Interpretation Comments Total Protein (test code = 2885-2) 6.4 g/dL 6.4-8.3 [facility]Magnesium [id number] 06:32:32 Test Item Value Reference Range Interpretation Comments Magnesium (test code = 02637-8) 1.9 mg/dL 1.6-2.6 [facility]Magn[facility] [id number] 06:32:32 Test Item Value Reference Range Interpretation Comments Magnesium (test code = 19178-4) 1.9 mg/dL 1.6-2.6 [facility]Alkaline [id number] 06:32:31 Test Item Value Reference Range Interpretation Comments Alk Phos (test code = 6768-6) 103 U/L 35-104 [facility]Alkaline Toacvjbhzao7528-40-15 06:32:31 Test Item Value Reference Range Interpretation Comments Alk Phos (test code = 6768-6) 103 U/L 35-104 [facility]ALT20[facility] 06:32:30 Test Item Value Reference Range Interpretation Comments ALT (test code = 12 U/L See_Comment [Automated message] The 174-6) system which ge nerated this result transmit navjot reference range : <=33. The reference range was not used to interpr et this result as shannon l/abnormal. [facility]ALT[facility] 06:32:30 Test Item Value Reference Range Interpretation Comments ALT (test code = 1742-6) 12 U/L <=33 [facility].Serum [id number] 06:32:29 Test Item Value Reference Range Interpretation Comments Creatinine (test code = 2160-0) 1.14 mg/dL 0.51-0.95 H Lab Interpretation (test code = Abnormal 52611-1) [facility].Serum [id number] 06:32:29 Test Item Value Reference Range Interpretation Comments Creatinine (test code = 2160-0) 1.14 mg/dL 0.51-0.95 H Lab Interpretation (test code = Abnormal 05820-7) [facility] 06:32:28 Test Item Value Reference Range Interpretation Comments BUN (test code = 3094-0) 21 mg/dL 05-06 [facility] 06:32:28 Test Item Value Reference Range Interpretation Comments BUN (test code = 3094-0) 21 mg/dL 6 [facility]Differential2022-[facility]-01 06:05:24 Test Item Value Reference Range Interpretation Comments Neutrophil % (test code = 78.5 % 42.0-66.0 H 770-8) Lymphocyte % (test code = 14.9 % 24.0-44.0 L 736-9) Monocyte % (test code = 5.2 % 2.0-7.0 5905-5) Eosinophil % (test code = 0.8 % 1.0-4.0 L 713-8) Basophil % (test code = 0.2 % 0.0-1.0 706-2) IGRE % (test code = 0.4 % 0.0-0.4 IGRE % c ount 12081-2) includes Metamyelocytes, Myelocytes, and Promyelocytes. Neutrophil Abs (test code 8.29 K/uL 1.70-7.30 H = 751-8) Lymphocyte Abs (test code 1.57 K/uL 1.00-4.80 = 731-0) Monocyte Abs (test code = 0.55 K/uL 0.08-0.70 742-7) Eosinophil Abs (test code 0.08 K/uL 0.04-0.40 = 711-2) Basophil Abs (test code = 0.02 K/uL 0.00-0.10 704-7) IG Abs (test code = 0.04 K/uL 0.00-0.04 40316-9) Lab Interpretation (test Abnormal code = 20001-4) [facility] 06:05:24 Test Item Value Reference Range Interpretation Comments Neutrophil % (test code = 78.5 % 42.0-66.0 H 770-8) Lymphocyte % (test code = 14.9 % 24.0-44.0 L 736-9) Monocyte % (test code = 5.2 % 2.0-7.0 5905-5) Eosinophil % (test code = 0.8 % 1.0-4.0 L 713-8) Basophil % (test code = 0.2 % 0.0-1.0 706-2) IGRE % (test code = 0.4 % 0.0-0.4 IGRE % c ount 15962-4) includes Metamyelocytes, Myelocytes, and Promyelocytes. Neutrophil Abs (test code 8.29 K/uL 1.70-7.30 H = 751-8) Lymphocyte Abs (test code 1.57 K/uL 1.00-4.80 = 731-0) Monocyte Abs (test code = 0.55 K/uL 0.08-0.70 742-7) Eosinophil Abs (test code 0.08 K/uL 0.04-0.40 = 711-2) Basophil Abs (test code = 0.02 K/uL 0.00-0.10 704-7) IG Abs (test code = 0.04 K/uL 0.00-0.04 13979-6) Lab Interpretation (test Abnormal code = 21524-1) [facility].[id number] 06:05:13 Test Item Value Reference Range Interpretation Comments WBC (test code = 10.6 K/uL 4.0-11.0 6690-2) RBC (test code = 789-8) 4.97 See_Comment [Au tomated message] The system octoScope generated this result transmitted ref erence range: 4.00 - 5 .50 M/uL. The refer ence range was not u sed to interpret this result as normal/abnor mal. Hgb (test code = 718-7) 12.1 See_Comment [Au tomated message] The system octoScope generated this result transmitted ref erence range: 12.0 - 1 6.0 gm/dL. The refe rence range was not u sed to interpret this result as normal/abnor mal. Hct (test code = 36.6 % 37.0-47.0 L 4544-3) MCV (test code = 787-2) 74 fL 82-98 L MCH (test code = 785-6) 24.3 pg 27.0-31.0 L MCHC (test code = 33.1 See_Comment [Automate d message] 786-4) The system octoScope generated this result transmitted ref erence range: 31.0 - 3 6.0 gm/dL. The refe rence range was not u sed to interpret this result as normal/abnor mal. RDW-SD (test code = 38.7 fL 35.1-46.3 95312-8) RDW-CV (test code = 14.6 % 12.0-15.5 788-0) Platelet count (test 330 K/uL 140-440 code = 777-3) MPV (test code = 10.0 fL 4.0-10.4 81299-5) INRBC (test code = 0.0 % See_Comment The INRBC (instrument 46525-3) NRBC) value ref lects the enumeration of nucleated red b lood cells contained in a 200uL sampleof whole blood analyzed by the instrument. Thi s value maydiffer from the NRBC value reported in a m anual differential,wh ich is based on a 100 cell differential. [Automated mess age] The system octoScope generated this result transmitted ref erence range: <=0.0. T he reference range was not used to int erpret this result as normal/abnormal . Lab Interpretation Abnormal (test code = 33194-2) [facility].[id number] 06:05:13 Test Item Value Reference Range Interpretation Comments WBC (test code = 10.6 K/uL 4.0-11.0 6690-2) RBC (test code = 789-8) 4.97 See_Comment [Au tomated message] The system octoScope generated this result transmitted ref erence range: 4.00 - 5 .50 M/uL. The refer ence range was not u sed to interpret this result as normal/abnor mal. Hgb (test code = 718-7) 12.1 See_Comment [Au tomated message] The system octoScope generated this result transmitted ref erence range: 12.0 - 1 6.0 gm/dL. The refe rence range was not u sed to interpret this result as normal/abnor mal. Hct (test code = 36.6 % 37.0-47.0 L 4544-3) MCV (test code = 787-2) 74 fL 82-98 L MCH (test code = 785-6) 24.3 pg 27.0-31.0 L MCHC (test code = 33.1 See_Comment [Automate d message] 786-4) The system octoScope generated this result transmitted ref erence range: 31.0 - 3 6.0 gm/dL. The refe rence range was not u sed to interpret this result as normal/abnor mal. RDW-SD (test code = 38.7 fL 35.1-46.3 46024-0) RDW-CV (test code = 14.6 % 12.0-15.5 788-0) Platelet count (test 330 K/uL 140-440 code = 777-3) MPV (test code = 10.0 fL 4.0-10.4 23678-0) INRBC (test code = 0.0 % <=0.0 The INRBC (instrument 34988-1) NRBC) value ref lects the enumeration of nucleated red b lood cells contained in a 200uL sampleof whole blood analyzed by the instrument. Thi s value maydiffer from the NRBC value reported in a m anual differential,wh ich is based on a 100 cell differential. Lab Interpretation Abnormal (test code = 63001-7) [facility]
[2023-01-27] MEDS ORDERED: Ringers Lactate 1,000 ML IV SCH (12:00)
[2023-01-27] MEDS: MORPHINE 2 MG/ML SYR IV PRN ×2 (12:28→18:34)
[2023-01-27] MEDS: Levofloxacin 750mg IV 750 MG/150 ML BAG IV SCH (12:29)
[2023-01-27] MEDS: METRONIDAZOLE 500mg IVPB 500 MG/100 ML BAG IV SCH ×2 (12:29→17:29)
[2023-01-27 12:55] VITALS: BMI 49.2
--- NOTE | 2023-01-27 13:30 | P.HP ---
Certification for Inpatient Patient admitted to: Observation With expected LOS: <2 Midnights Patient will require the following post-hospital care: None Practitioner: I am a practitioner with admitting privileges, knowledge of patient current condition, hospital course, and medical plan of care. Services: Services provided to patient in accordance with Admission requirements found in Title 42 Section 412.3 of the Code of Federal Regulations <NuryKendell - Last Filed: 01/27/23 17:11> Patient History Date of Service: 01/27/23 Primary Care Provider: Hugo Reason for admission: Pelvic hematoma History of Present Illness: This is a 57-year-old -[place] female with past medical history sign ificant for hypertension and sleep apnea. She presented to the emergency room on 01/26/23 with complaints of abdominal pain. Patient was evaluated in her room. Patient is alert and oriented x4. Patient states she came to the emergency room yesterday due to pelvic pain with dysuria. She also reported having a pressure- like, stabbing pain when attempting to have a bowel movement. Patient recently had a hysterectomy and hernia repair on 01/[address] Sneed with no postsurgical complication. CT of the abdomen was performed and demonstrated a pelvic hematoma. Surgery was consulted. Patient will be admitted under the care of Dr. García Home medications list reviewed: Yes - Past Medical/Surgical History Has patient received pneumonia vaccine in the past: Yes Diabetic: No -: HTN -: PCOS -: Hysterectomy -: Appendectomy -: Tonsillectomy -: Caratarac -: Hernia Repair - Family History Family History: Reviewed- Non-Contributory - Social History Smoking Status: Former smoker Alcohol use: No CD- Drugs: No Caffeine use: Yes Place of Residence: Home <Kendell Arrington - Last Filed: 01/27/23 17:11> Date of Service: 01/27/23 <Panda García - Last Filed: 01/27/23 17:47> Allergies clarithromycin [From Biaxin] Allergy (Severe, Verified 01/13/23 06:42) Anaphylaxis TIA Inhibitors Allergy (Verified 01/13/23 06:42) Anaphylaxis lisinopril Allergy (Verified 01/13/23 06:42) Anaphylaxis Penicillins Allergy (Verified 01/13/23 06:42) Anaphylaxis tuberculin,PPD,multi-puncture Allergy (Verified 01/13/23 06:42) Anaphylaxis Home Medications: Ashwagandha Root Extract [Ashwagandha] 500 mg PO DAILY 01/10/23 Aspirin [Vazalore] 81 mg PO DAILY 01/10/23 Cetirizine HCl [Zyrtec] 5 mg PO DAILY 01/10/23 L.acidoph,Paracasei, B.lactis [Probiotic] 1 each PO DAILY 01/10/23 Loratadine [Claritin*] 10 mg PO DAILY 01/10/23 Losartan/Hydrochlorothiazide [Losartan-Hctz 100-25 mg Tab] 1 each PO DAILY 01/10/23 Multivit-Min/FA/Lycopen/Lutein [Centrum Silver Tablet] 1 each PO DAILY 01/10/23 Metoprolol Succinate 25 mg PO DAILY 01/13/23 Pantoprazole [Protonix Tab*] 1 tab PO DAILY 01/13/23 Review of Systems 10-point ROS is otherwise unremarkable Gastrointestinal: Nausea Genitourinary: Dysuria Musculoskeletal: Back Pain <Kendell Arrington - Last Filed: 01/27/23 17:11> Physical Examination - Vital Signs Temperature: 97.1 F Blood Pressure: 171/121 Pulse: 73 Respirations: 16 Pulse Ox (%): 95 - Physical Exam General: Alert, In no apparent distress, Oriented x3 HEENT: Atraumatic, Normocephalic, PERRLA Neck: Supple, 2+ carotid pulse no bruit Respiratory: Clear to auscultation bilaterally, Normal air movement Cardiovascular: No edema, Normal pulses, Regular rate/rhythm Capillary refill: <2 Seconds Gastrointestinal: Normal bowel sounds (Left pelvic tenderness) Musculoskeletal: No clubbing, No swelling, Other (Left pelvic tenderness) Integumentary: No rashes, No breakdown Neurological: Normal speech, Normal strength at 5/5 x4 extr, Normal tone, Sensation intact Lymphatics: No axilla or inguinal lymphadenopathy - Studies Laboratory Data (last 24 hrs) 01/27/23 13:09: WBC Cancelled, Hgb Cancelled, Hct Cancelled, Plt Count Cancelled <Kendell Arrington - Last Filed: 01/27/23 17:11> - Studies Laboratory Data (last 24 hrs) 01/27/23 13:20: Sodium 140, Potassium 3.7, BUN 18, Creatinine 0.78, Glucose 116 H, Phosphorus 3.2, Magnesium 2.2, AST 12 L, ALT 22, Alkaline Phosphatase 105 01/27/23 13:09: WBC Cancelled, Hgb Cancelled, Hct Cancelled, Plt Count Cancelled <Panda García - Last Filed: 01/27/23 17:47> Assessment and Plan - Plan Assessment Pelvic hematoma HTN s/p hernia/hysterectomy surgery Plan Surgery consulted, keep patient n.p.o. with sips of clears Continue IV fluids Continue IV antibiotics as ordered Medicate for pain as needed Resume home medication when appropriate DVT PPX- SCDs Full code Discharge Plan: Home Plan to discharge in: 48 Hours - Advance Directives Does patient have a Living Will: No Does patient have a Durable POA for Healthcare: No - Code Status/Comfort Care Code Status Assessed: Yes (Full code) Critical Care: No Time Spent Managing Pts Care (In Minutes): 50 <Kendell Arrington - Last Filed: 01/27/23 17:11> Physician Review: Patient Assessed, Agree with Above Assessment and Plan <Panda García - Last Filed: 01/27/23 17:47>
[2023-01-27 13:53] LABS: Magnesium 2.2 mg/dL (1.6-2.4); Phosphorus 3.2 mg/dL (2.5-4.9); Potassium 3.7 mEq/L (3.5-5.1)
[2023-01-27] MEDS: NA CHLORIDE 0.9% 1,000 ML IV SCH (13:58)
[2023-01-27] MEDS: METOPROLOL XL 25 MG TAB PO SCH (17:29)
[2023-01-27] MEDS: PSYLLIUM 1 PKT PO SCH (21:35)
[2023-01-28] MEDS: NA CHLORIDE 0.9% 1,000 ML IV SCH ×2 (00:10→09:32)
[2023-01-28] MEDS: METRONIDAZOLE 500mg IVPB 500 MG/100 ML BAG IV SCH ×4 (00:10→23:20)
[2023-01-28] MEDS: MORPHINE 2 MG/ML SYR IV PRN ×2 (00:10→06:34)
[2023-01-28] MEDS: ONDANSETRON 4 MG/2 ML VIAL IV PRN (00:15)
[2023-01-28 04:12] LABS: Absolute Lymphocytes (CBC) 2.3 K/uL (0.7-4.9); Lymphocytes % 32.4 % (15.3-44.8); MPV 8.7 fL (7.6-11.3); RBC Red Blood Cell Count 4.05 M/uL (3.86-4.86)
[2023-01-28 04:31] LABS: Potassium 3.3 mEq/L (3.5-5.1)
[2023-01-28] MEDS: POLYETHYL GLY 3350 17 GM/DOSE PO SCH (08:40)
[2023-01-28] MEDS: DOCUSATE NA 100 MG CAP PO SCH ×2 (08:40→20:49)
[2023-01-28] MEDS: LOSARTAN/HCTZ 50-12.5 PO SCH (08:40)
[2023-01-28] MEDS: PSYLLIUM 1 PKT PO SCH (08:40)
[2023-01-28] MEDS: PANTOPRAZOLE 40MG TABLET PO SCH (08:41)
[2023-01-28] MEDS: METOPROLOL XL 25 MG TAB PO SCH (08:41)
[2023-01-28] MEDS: CETIRIZINE HCL 5 MG TABLET PO SCH (08:42)
[2023-01-28] MEDS ORDERED: HOME MED 1 EA UNK (Losartan/Hydrochlorothiazide [Losartan-Hctz 100-25 Mg Tab] 1 EACH Table PO SCH (09:00)
[2023-01-28] MEDS ORDERED: POTASSIUM CL SA 10 MEQ TAB PO ONE ×2 (09:00→17:45)
[2023-01-28] MEDS ORDERED: CETIRIZINE HCL 5 MG TABLET PO SCH (09:00)
[2023-01-28] MEDS ORDERED: PANTOPRAZOLE 40MG TABLET PO SCH (09:00)
[2023-01-28] MEDS: Levofloxacin 750mg IV 750 MG/150 ML BAG IV SCH (11:37)
[2023-01-28] MEDS: ACETAMINOPHEN 500 MG TAB PO PRN ×2 (11:42→17:27)
--- NOTE | 2023-01-28 14:32 | P.CNS ---
Date of Consult: 01/27/23 I saw this patient and reviewed her medical chart and findings. I discussed them with the patient. She does not require surgical intervention at this time. She will be discharged to follow-up with her other physicians. Of course if she has any problems she is more than welcome to come see me. She understands and is quite comfortable with this decision.
--- NOTE | 2023-01-28 16:24 | P.PN ---
Subjective Date of Service: 01/28/23 Primary Care Provider: Hugo Chief Complaint: Pelvic hematoma No acute events overnight. She appears well this morning, without any concerns. Her blood pressure is well controlled with her home medication regimen. Review of Systems 10-point ROS is otherwise unremarkable Gastrointestinal: Constipation Genitourinary: Other (pelvic pain) Physical Examination - Vital Signs Temperature: 97.1 F Blood Pressure: 135/63 Pulse: 64 Respirations: 16 Pulse Ox (%): 100 - Physical Exam General: Alert, In no apparent distress, Oriented x3 HEENT: Atraumatic, Mucous membr. moist/pink, Sclerae nonicteric Neck: JVD not distended Respiratory: Clear to auscultation bilaterally, Normal air movement Cardiovascular: No edema, Regular rate/rhythm, Normal S1 S2, No gallops, No rubs, No murmurs Gastrointestinal: Normal bowel sounds, Soft and benign, Non-distended, No t enderness, No rebound, No guarding Musculoskeletal: No clubbing Integumentary: No rashes Neurological: Normal speech, Normal affect - Studies Laboratory Data (last 24 hrs) 01/28/23 14:17: Potassium 3.6 01/28/23 03:26: Sodium 138, Potassium 3.3 L, BUN 14, Creatinine 0.67, Glucose 111 H 01/28/23 03:26: WBC 7.10, Hgb 9.9 L, Hct 30.0 L, Plt Count 320 Assessment And Plan - Plan DIAGNOSES: # Pelvic Fluid Collection (39 mm x 29 mm) - sterility unknown, suspected Post- Operative Hematoma # S/P TLH, BSO, Vaginal Morcellation, Lysis of Bowel, Uterine, Ovarian Adhesions (01/13/2023) # Hypertension # Opioid-Induced Constipation # Probable Iron-Deficiency Anemia (Mentzer Index = 18.27) # Polycystic Ovarian Syndrome RECOMMENDATIONS: 1. In regards to her hypertension, blood pressure seems well controlled - Continue home metoprolol, losartan-hydrochlorothiazide 2. Pelvic fluid collection management per Elevator Operator + General Surgery services - Spoke with Dr. Renae, he does not feel that surgical intervention is necessary 3. Antibiotics per primary team 4. Started docusate + MiraLAX for constipation 5. Started ferrous sulfate for likely iron-deficiency anemia Recommendations discussed with Dr. Garrett. Internal Medicine will sign off at this time. Please feel free to call with any questions or concerns. Panda García M.D.
[2023-01-28 21:55] VITALS: O2SAT 100
[2023-01-28] MEDS ORDERED: BISACODYL E.C. 5 MG TAB PO ONE (22:36)
[2023-01-29] MEDS: ACETAMINOPHEN 500 MG TAB PO PRN (00:30)
[2023-01-29] MEDS: ONDANSETRON 4 MG/2 ML VIAL IV PRN ×2 (01:02→08:16)
[2023-01-29 05:16] LABS: Absolute Lymphocytes (CBC) 2.6 K/uL (0.7-4.9); Hematocrit 32.1 % (36.0-45.0); Lymphocytes % 34.7 % (15.3-44.8); MCV 73.8 fL (80-100); MPV 7.8 fL (7.6-11.3); RBC Red Blood Cell Count 4.35 M/uL (3.86-4.86)
[2023-01-29 05:33] LABS: Potassium 3.7 mEq/L (3.5-5.1)
[2023-01-29 07:29] VITALS: BP 140/67; TEMP 96.8
[2023-01-29] MEDS: METRONIDAZOLE 500mg IVPB 500 MG/100 ML BAG IV SCH (08:03)
[2023-01-29] MEDS: METOPROLOL XL 25 MG TAB PO SCH (08:06)
[2023-01-29] MEDS: LOSARTAN/HCTZ 50-12.5 PO SCH (08:06)
[2023-01-29] MEDS: PANTOPRAZOLE 40MG TABLET PO SCH (08:06)
[2023-01-29] MEDS: POLYETHYL GLY 3350 17 GM/DOSE PO SCH (08:07)
[2023-01-29] MEDS: CETIRIZINE HCL 5 MG TABLET PO SCH (08:07)
[2023-01-29] MEDS: DOCUSATE NA 100 MG CAP PO SCH (08:07)
[2023-01-29] MEDS ORDERED: FERROUS SULFATE 325 MG TAB PO SCH (09:00)
[2023-01-29] MEDS ORDERED: levoFLOXacin 750 MG TAB PO SCH (12:00)
[2023-01-29] MEDS ORDERED: metroNIDAZOLE 500 MG TABLET PO SCH (14:00)
[2023-01-29] MEDS ORDERED: SENOSIDES 8.6 MG TAB PO ONE (22:38)
== END 2023-01-29 10:05 | disposition home or self-care (01) ==
LOC: 2ND 11:19 → UNDOADMOB 11:19 → 2ND 11:29 → 4TH 01-28 06:42
PROVIDERS: ADMIT Obstetrics & Gynecology; ATTEND Obstetrics & Gynecology
DX: M79.81 Nontraumatic hematoma of soft tissue (principal); I10 Essential (primary) hypertension; G47.30 Sleep apnea, unspecified; E28.2 Polycystic ovarian syndrome; K59.03 Drug induced constipation; T40.2X5A Adverse effect of other opioids, initial encounter; Z98.890 Other specified postprocedural states; Z88.0 Allergy status to penicillin; Z88.3 Allergy status to other anti-infective agents; Z20.822 Contact with and (suspected) exposure to COVID-19
CPT/HCPCS: 85025 ×2; 80048 ×3; 36415 ×2; 84075; 83735; 84100; 84132; 84450; 84460; 87811; J2270 ×4; J2405 ×3; J7120; J7030 ×2; G0378; G0379

== ENCOUNTER 2023-09-17 05:18 | Emergency (ER) | payer OTHER ==
--- OUTSIDE RECORDS SUMMARY | 2023-09-17 05:22 | XMS REPORT | Continuity of Care Document ---
:1965 Author Organization [facility] MD [facility] Address [address] [place] [address] Care Team Providers Name Role Phone Unavailable Primary Care Provider Unavailable Allergies Active Allergy Reactions Criticality Noted Date Comments Penicillins Rash High 07/14/2022 Clarithromycin Rash High 07/14/2022 Lisinopril Swelling High 07/14/2022 Furosemide Swelling High 07/14/2022 Amlodipine Swelling High 07/14/2022 after 09/17/2022 Medications Medication Sig Dispensed Refills Start Date End Date Status predniSONE (DELTASONE) Take 2 tablets (40 6 tablet 0 07/15/20 22 Active 20 mg mg) by mouth daily tabletIndications: with dinner. Allergic reaction after 09/17/2022 Active Problems Not on fileafter 09/17/2022 Social History Tobacco Use Types Packs/Day Years Used Date Smoking Tobacco: Never Assessed Sex and Gender Information Value Date Recorded Sex Assigned at Not on file Gender Identity Not on file Sexual Orientation Not on file Job Start Date Occupation Industry Not on file Not on file Not on file after 09/17/2022 Last Filed Vital Signs Not on fileafter 09/17/2022 Plan of Treatment Not on fileafter 09/17/2022 Results Not on fileafter 09/17/2022
--- OUTSIDE RECORDS SUMMARY | 2023-09-17 05:26 | XMS REPORT | Continuity of Care Document ---
:1965 Author Organization [facility] t Address [address] [place] [address] Care Team Providers Name Role Phone ELOINA ARIASESH Primary Care Physician Unavailable HugoEloina Christa Attending Clinician Unavailable Lucius Weber Attending Clinician Unavailable JAMAL AYOUB Attending Clinician Unavailable NAZIA MOSQUEDA Attending Clinician Unavailable [email or web address] Attending Clinician Unavailable Nazai Mosqueda MD Attending Clinician [phone] Eloina Arias DOesh Attending Clinician Manuel Lehman MD Attending Clinician Marti Louis MA Attending Clinician Unavailable Ely Prado Attending Clinician Unavailable JOSE REILLY Attending Clinician Unavailable Percy BOWMAN, Jose Attending Clinician Doctor Unassigned, [facility] Attending Clinician Unavailable Saar Garrett Attending Clinician Unavailable Danie Angeles MD Attending Clinician Fransico Maxwell MD Attending Clinician DANIE ANGELES Attending Clinician Unavailable JOSÉ MIGUEL TRISTAN Attending Clinician Unavailable VLADIMIR LIANG Attending Clinician Unavailable VLADIMIR LIANG Attending Clinician Unavailable JAMAL AYOUB Admitting Clinician Unavailable [email or web address] Admitting Clinician Unavailable NAZIA MOSQUEDA Admitting Clinician Unavailable Eloina Arias Admitting Clinician Unavailable Payers Payer Name Policy Type Policy Number Effective Date Expiration Date S ource [facility] [id number] 2021 PLUS 00:00:00 [employer] [id number] 2022 MEDICARE 00:00:00 [facility] [id number] 2023 STAR PLAN 00:00:00 WELLMED/[facility] [id number] 2023 DUAL COMP HMO D 00:00:00 SNP [facility] MCR Dual 53 [id number] 2022 Common Spiri t Complete Choice 00:00:00 - [facility] Medic mt D-SNP) [place] MEDICA[place] [id number] 2020 [place] 00[place] [id number] 2017 00:00:00 Problems Condition Condition Condition Status Onset Resolution Last Treating Co mments Source Name Details Category Date Date Treatment Clinician Date Class 3 Class 3 Disease Recurre 2022-[address] obesity obesity nce 0-24 [facility] 00:[facility]: Medical 00 [place] Hiatal Hiatal Disease Active 2022-[address] hernia hernia 0-24 [facility] 00:[facility]: Medical [address] [place] [address] GERD GERD Disease Active 2022-11 [facility] (gastroeso (gastroeso 0-24 Analilia kes phageal phageal 00:00: Medical reflux reflux Center disease) disease) Endometria Endometria Disease Active 2017-11 U nivers l polyp l polyp 2-06 ity of 00:00: [place] [address] Medical Branch Abnormal Abnormal Disease Active 2017-11 Unive rs uterine uterine 2 ity of bleeding bleeding 00:00: [place] (AUB) (AUB) Medical Branch Endometria Endometria Disease Active 2017-11 U nivers l polyp l polyp 2-06 ity of 00:00: [place] [address] Medical Branch Tubal Tubal Disease Active Univers ligation ligation 06-08 ity of status status 00:00: [place] Medical [facility] Lump or Lump or Disease Active Univers mass in mass in 06-08 ity of breast breast 00:00: [place] [address] Medical Branch [id number] Morbid Problem Commo n 9104 (severe) Spirit obesity - [facility] due to [facility] [id number] Essential Problem Comm on hypertensi Spirit on - [facility] [id number] Left-sided Problem Co mmon low back Spirit pain with - [facility] left-sided sciatica, [facility] chronicity [id number] Dependence Problem Co mmon on other Spirit enabling - [facility] machines [facility] [id number] Obstructiv Problem Com mon e sleep Spirit apnea - [facility] (adult) (pediatric 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 Allergies, Adverse Reactions, Alerts Allergy Allergy Status Severity Reaction(s) Onset Inactive Treating Comm ents Source Name Type Date Date Clinician LISINOPR Allergy Active High Swelling 2022-11 [facility] [place] 0-20 [facility] 00:[facility]: Medical 00 Center Lisinopr Propensi Active Swelling 2022-[address] il ty to 0-20 [facility] adverse 00:00: Medical reaction 00 Center s Coconut Drug Active Other [facility] Allergy 8 reaction( [facility] 00:00: s): Medical 00 Unknown Center COCONUT Allergy Active [facility] - 00:00: 00 Tubercul Drug Active Other [facility] in,Ppd,M Allergy 2 reaction( Luke s ulti-Pun 00:00: s): Medical cture 00 Anaphylax Center is TUBERCUL Allergy Active [facility] IN,PPD,M 2 ULTI-PUN 00:00: CTURE 00 clarithr DA Active U ANAPHYLAXIS 2021-11 [facility] omycin 2-15 [place] 00:00: d 00 [facility] amlodipi DA Active U SWELLING 2021-11 [facility] ne 2-15 [place] 00:00: d 00 [facility] Penicill DA Active U SWELLING 2021-11 [facility] ins 2-15 [place] 00:00: d 00 [facility] lisinopr DA Active U ANAPHYLAXIS 2021-11 [facility] il 2-15 [place] 00:00: d 00 [facility] AMLODIPI DRUG Active High Swelling 2021-0 NE INGREDI 07-14 [place] 00:00: n 00 CLARITHR DRUG Active High Rash 2021-0 MD OMYCIN INGREDI 07-14 [place] 00:00: n 00 FUROSEMI DRUG Active High Swelling 2021-0 DE INGREDI 07-14 [place] 00:00: n 00 LISINOPR DRUG Active High Swelling 2021-0 MD IL INGREDI 07-14 [place] 00:00: n 00 PENICILL Drug Active High Rash 2021-0 MD INS Class 07-14 [place] 00:00: n [...] DE INGREDI 8-31 [place] 00:00: n 00 AMLODIPI [...] IL INGREDI 8-31 [place] 00:00: n 00 LISINOPR [...] Class 8-31 [place] 00:00: n 00 AMLODIPI Allergy Active High Swelling 2-0 [facility] NE 8 00:00: 00 FUROSEMI Allergy Active High Swelling 2-0 [facility] DE 8 00:00: 00 Penicill Drug Active Rash 2022-0 Univers ins Allergy 8- ity of 00:00: [place] 00 MD [facility] Clarithr Drug Active Rash 2-0 Univers omycin Allergy 8- ity of 00:00: [place] 00 MD [facility] Lisinopr Drug Active Swelling 2-0 Univer s il Allergy 8- ity of 00:00: [place] 00 MD [facility] Furosemi Drug Active Swelling 2021-0 Univer s de Allergy - ity of 00:00: [place] 00 MD [facility] Amlodipi Drug Active Swelling Univer s ne Allergy 8-31 ity of 00:00: [place] MD [facility] [place] Penicill Propensi Active Nausea Univer s ins ty to and/or 2-03 ity of adverse Vomiting 00:00: [place] reaction 00 [facility] PENICILL Drug Active Hives Univers INS Class 2-03 ity of 00:00: [place] 00 [facility] Penicill Propensi Active Nausea Univer s ins ty to and/or 2-03 ity of adverse Vomiting 00:00: [place] reaction Medical [facility] Penicill Propensi Active Nausea Univer s ins ty to and/or 2-03 ity of adverse Vomiting 00:00: [place] reaction [facility] Penicill Drug Active Hives, Other [facility] ins Allergy Itching, 1-11 reaction( Luke s Nausea And 00:00: s): Medica l Vomiting, 00 Anaphylax Cent er Rash is, SWELLING, Unknown Sulfamet Drug Active Rash [facility] hoxazole Allergy 11-24 [facility] 00:00: Medical 00 [place] PENICILL Allergy Active High Hives [facility] INS 11-24 00:00: 00 SULFAMET Allergy Active Low Rash [facility] HOXAZOLE 11-24 00:00: 00 Lisinopr Propensi Active Swelling 2017-11 Almost Univ ers il ty to 12-12 put her ity of adverse 00:00: in a coma [place] reaction [facility] LISINOPR DRUG Active Swelling 2017-11 Univer s [place] INGREDI 12-12 ity of 00:00: [place] [facility] Tia Drug Active Swelling Other [facility] Inhibito Allergy 06-12 reaction( Luke s rs 00:00: s): Medical 00 Anaphylax Center is, ANAPHYLAX IS, UnknownAl most put her in a coma TIA Allergy Active High Swelling [facility] INHIBITO - RS 00:00: 00 Clarithr Drug Active Anaphylaxis, Other [facility] I St omycin Allergy Rash, 06-08 reaction( [facility] Swelling 00:00: s): Medical 00 Anaphylax Center is, ANAPHYLAX IS, Unknown Clarithr Propensi Active Anaphylaxis U nivers omycin ty to 06-08 ity of adverse 00:00: [place] reaction 00 Medical s Branch CLARITHR DRUG Active Anaphylaxis Uni vers OMYCIN INGREDI 06-08 ity of 00:00: [place] 00 Medical Branch CLARITHR Allergy Active High Anaphylaxis SL SL OMYCIN 06-08 00:00: 00 Coconut Coconut Active Unknown Common [facility] amoxicil amoxicil Active Unknown Commo n stewart stewart [facility] 7200 Drug Active Unknown Common allergy [facility] [id number] Drug Active Unknown Common 85 allergy [facility] Social History Social Habit Start Date Stop Date Quantity Comments Source History [facility]-Med Medical Center History of tobacco Cigarette Smoker [facility] use [facility] Center Gender identity Universit y [facility] [place] [facility] Sexual orientation Univer [facility] MD [facility] Cancer Center Alcohol intake 2023-09-08 2023-09-[address] [facility] es 00:00:00 00:00:00 non-drinker Medical Cente r (finding) Exposure to 2023-08-27 2023-09-[address] [facility] SARS-CoV-2 (event) 00:00:00 06:15:00 Medica l Center History [facility] 2023-09-06 2023-09-[address] [facility] Transport Med 00:00:00 00:00:[address] History [facility] 2023-09-06 2023-09-[address] [facility] Housing Unable to 00:00:00 00:00:00 Medical Center Pay History [facility] 2023-09-06 2023-09-[address] [facility] Housing Places 00:00:00 00:00:00 Medical Ce nter Lived History [facility] 2023-09-06 2023-09-[address] [facility] Housing Homeless 00:00:00 00:00:00 Medical Center Last Year Tobacco use and 2023-09-02 2023-09-[address] Analilia kes exposure 00:00:00 00:00:00 tobacco non-user Medical Center Cigarettes smoked 2023-09-02 2023-09-[address] [facility] current (pack per 00:00:00 00:00:00 Medical Center day) - Reported Cigarette 2023-09-02 2023-09-[address] [facility] pack-years 00:00:00 00:00:00 [facility] Alcohol Comment 2023-07-25 2023-07-25 rare Universit y of 00:00:00 00:00:00 [facility] [place] [facility] History of Social 2021-03-05 2021-03-05 Univers ity of function 00:00:00 00:00:00 [facility] [place] [facility] Sex [birth year] Universit y of 00:00:00 00:00:00 [place] [facility] Smoking Status Start Date Stop Date Source Ex-smoker 2023-09-02 00:00:00 2023-09-02 00:00:00 [facility] Never smoked tobacco [facility] Medications Ordered Filled Start Stop Current Ordering Indication Dosage Frequency Signature Comments Components Source Medication Medication Date Date Medication? Clinician (SIG) Name Name aspirin 81 2022-11 Yes 81mg Take 1 [facility] t MG chewable 0-25 tablet (81 Analilia kes tablet 12:42: mg total) Medica l 03 by mouth. [place] pantoprazol 2022-11 Yes 40mg QD Take [address] e 0-25 tablet (40 [facility] (PROTONIX) 12:42: mg total) Me dical 40 MG 03 by mouth Center tablet daily. multivitami 2022-11- No 1{capsu QD Take [address] n capsule 0-25 10-25 le} capsule by Tati es 10:13: 00:00 mouth Medical 28 :00 daily. Center traMADoL 2022-11- Yes 50mg Take [address] (ULTRAM) 50 0-25 11-04 tablet (50 L ukes mg tablet 00:00: 23:59 mg total) Me dical 00 :00 by mouth Center every 6 (six) hours as needed for Pain for up to 10 days. Max Daily Amount: 200 mg ondansetron 2022-11- Yes 4mg Take [address] (ZOFRAN-ODT 0-25 11- tablet (4 Analilia kes ) 4 MG 00:00: 23:59 mg total) Medic al disintegrat 00 :00 by mouth Cent er ing tablet every 8 (eight) hours as needed for Nausea for up to 7 days. multivitami 2022-11 Yes 1{capsu QD Take [address] n capsule 0-20 le} capsule by Luke s 08:12: mouth Medical 09 daily. Center aspirin 81 2022-11 Yes 81mg Take 1 [facility]I S t MG chewable 0-20 tablet (81 Analilia kes tablet 08:11: mg total) Medica l 12 by mouth. [place] pantoprazol 2022-11 Yes 40mg QD Take [address] e 0-06 tablet (40 [facility] (PROTONIX) 11:33: mg total) Me dical 40 MG 21 by mouth [place] tablet daily. losartan 2022-11- No [address] (COZAAR) 50 0-06 10-06 Orally BID L ukes MG tablet 11:33: 00:00 Medical 20 :00 [place] losartan 2022-11- No [address] (COZAAR) 50 0-06 10-06 Orally BID L ukes MG tablet 11:33: 00:00 Medical 20 :00 [place] aspirin 81 Yes 81mg Take 1 Unive rs mg chewable 9-11 tablet by ity of tablet 14:59: mouth in [place] 07 the Medical morning. Branch naproxen 0 Yes 220mg Take 1 Univer s sodium 9-11 tablet by ity of (ALEVE) 220 14:59: mouth in [place] mg tablet 07 the Medical morning. Branch acetaminoph 0 Yes 500mg Take 1 Uni vers en 500 mg 9-11 tablet by ity o f tablet 14:59: mouth 4 [place] 07 (four) Medical times Branch daily. ASHWAGANDHA 0 Yes Take by Uni vers EXTRACT 9-11 mouth. ity of ORAL 14:59: [place] 07 Medical Branch potassium 2022-0 Yes Take by Unive rs chloride 9-11 mouth. ity of (KCL-20 14:59: [place] ORAL) 07 Medical Branch aspirin 81 2022-0 Yes 81mg Take 1 Unive rs mg chewable 9-11 tablet by ity of tablet 14:59: mouth in [place] 07 the Medical morning. Branch naproxen 2022-0 Yes 220mg Take 1 Univer s sodium 9-11 tablet by ity of (ALEVE) 220 14:59: mouth in [place] mg tablet 07 the Medical morning. Branch acetaminoph 2022-0 Yes 500mg Take 1 Uni vers en 500 mg 9-11 tablet by ity o f tablet 14:59: mouth 4 [place] 07 (four) Medical times Branch daily. ASHWAGANDHA 2022-0 Yes Take by Uni vers EXTRACT 9-11 mouth. ity of ORAL 14:59: [place] 07 Medical Branch potassium 3-0 Yes Take by Unive rs chloride 9-11 mouth. ity of (KCL-20 14:59: [place] ORAL) 07 Medical Branch pantoprazol 2022-0 Yes 40mg Take 1 Univ ers e 40 mg EC 8-22 tablet by ity of tablet 00:00: mouth [place] 00 every Medical morning. Branch losartan-hy 2022-0 Yes 1{tbl} Take 1 Un jus drochloroth 8-22 tablet by ity of iazide 00:00: mouth in [place] 100-25 mg 00 the Medical per tablet morning. Bran h pantoprazol 2022-0 Yes 40mg Take 1 Univ ers e 40 mg EC 8-22 tablet by ity of tablet 00:00: mouth [place] 00 every Medical morning. Branch losartan-hy 2022-0 Yes 1{tbl} Take 1 Un jus drochloroth 8-22 tablet by ity of iazide 00:00: mouth in [place] 100-25 mg 00 the Medical per tablet morning. Bran h losartan 2022-0 Yes 1 tablet CHI S t (COZAAR) 50 8-03 Orally BID Analilia kes MG tablet 15:44: Medical 52 Center pantoprazol 2022-0 Yes 40mg QD Take [address] e 8-03 tablet (40 [facility] (PROTONIX) 15:44: mg total) Me dical 40 MG 52 by mouth Center tablet daily. aspirin 81 2022-0 Yes 81mg Take 1 CHI S t MG chewable 8-03 tablet (81 Analilia kes tablet 11:33: mg total) Medica l 04 by mouth. Center metoprolol 3-0 Yes 25mg QD Take 1 CHI S t succinate 7-27 tablet (25 Luke s (TOPROL-XL) 00:00: mg total) M edical 25 MG 24 hr 00 by mouth Cent er tablet daily. metoprolol 2023-0 Yes 25mg QD Take 1 CHI S t succinate 7-27 tablet (25 Luke s (TOPROL-XL) 00:00: mg total) M edical 25 MG 24 hr 00 by mouth Cent er tablet daily. metoprolol 3-0 Yes 25mg QD Take 1 CHI S t succinate 7-27 tablet (25 Luke s (TOPROL-XL) 00:00: mg total) M edical 25 MG 24 hr 00 by mouth Cent er tablet daily. losartan-hy 3-0 Yes 1{tbl} QD Take [address] droCHLOROth 5-25 tablet by [place] iazide 00:00: mouth Medical (HYZAAR) 00 daily. Center 100-25 mg per tablet losartan-hy 3-0 Yes 1{tbl} QD Take [address] droCHLOROth 5-25 tablet by [place] iazide 00:00: mouth Medical (HYZAAR) 00 daily. Center 100-25 mg per tablet losartan-hy 2022-0 Yes 1{tbl} QD Take [address] droCHLOROth 5-25 tablet by [place] iazide 00:00: mouth Medical (HYZAAR) 00 daily. [place] 100-25 mg per tablet hydroCHLORO 2022-0 Yes [id number] TAKE 1 Univers thiazide 25 9-19 TABLET BY ity of mg tablet 00:00: MOUTH [place] 00 EVERY DAY Medical Branch hydroCHLORO 2022-0 Yes [id number] TAKE 1 Univers thiazide 25 9-19 TABLET BY ity of mg tablet 00:00: MOUTH [place] 00 EVERY DAY Medical Branch hydroCHLORO 2022-0 Yes [id number] TAKE 1 Univers thiazide 25 9-19 TABLET BY ity of mg tablet 00:00: MOUTH [place] 00 EVERY DAY Medical Branch hydroCHLORO 2022-0 Yes [id number] TAKE 1 Univers thiazide 25 9-19 TABLET BY ity of mg tablet 00:00: MOUTH [place] 00 EVERY DAY Medical Branch hydroCHLORO 2022-0 Yes [id number] TAKE 1 Univers thiazide 25 9-19 TABLET BY ity of mg tablet 00:00: MOUTH [place] 00 EVERY DAY Medical Branch hydroCHLORO 2022-0 Yes [id number] TAKE 1 Univers thiazide 25 9-19 TABLET BY ity of mg tablet 00:00: MOUTH [place] 00 EVERY DAY Medical Branch hydroCHLORO 2022-0 2023- No [id number] TAKE 1 Univers thiazide 25 9-19 09-11 TABLET BY it y of mg tablet 00:00: 00:00 MOUTH [place] 00 :00 EVERY DAY Medical Branch hydroCHLORO 0 2023- No [id number] TAKE 1 Univers thiazide 25 08-02 TABLET BY it y of mg tablet 00:00: 00:00 MOUTH [place] 00 :00 EVERY DAY [facility] Branch predniSONE Yes Allergic 40mg Take 2 U nivers (DELTASONE) 07-15 reaction tablets i ty of 20 mg 00:00: (40 mg) by [place] tablet 00 mouth MD daily with [place] dinner. [facility] predniSONE Yes Allergic 40mg Take 2 U nivers (DELTASONE) 07-15 reaction tablets i ty of 20 mg 00:00: (40 mg) by [place] tablet 00 mouth MD daily with [place] dinner. [facility] predniSONE Yes Allergic 40mg Take 2 U nivers (DELTASONE) 07-15 reaction tablets i ty of 20 mg 00:00: (40 mg) by [place] tablet 00 mouth MD daily with [place] dinner. [facility] predniSONE Yes Allergic 40mg Take 2 U nivers (DELTASONE) 07-15 reaction tablets i ty of 20 mg 00:00: (40 mg) by [place] tablet 00 mouth MD daily with [place] dinner. [facility] predniSONE Yes Allergic 40mg Take 2 U nivers (DELTASONE) 07-15 reaction tablets i ty of 20 mg 00:00: (40 mg) by [place] tablet 00 mouth MD daily with [place] dinner. [facility] predniSONE Yes Allergic 40mg Take 2 U nivers (DELTASONE) 07-15 reaction tablets i ty of 20 mg 00:00: (40 mg) by [place] tablet 00 mouth MD daily with [place] dinner. [facility] predniSONE Yes Allergic 40mg Take 2 U nivers (DELTASONE) 07-15 reaction tablets i ty of 20 mg 00:00: (40 mg) by [place] tablet 00 mouth MD daily with [place] dinner. [facility] predniSONE Yes Allergic 40mg Take 2 U nivers (DELTASONE) 07-15 reaction tablets i ty of 20 mg 00:00: (40 mg) by [place] tablet 00 mouth MD daily with Anderso dinner. [facility] predniSONE Yes Allergic 40mg Take 2 U nivers (DELTASONE) 07-15 reaction tablets i ty of 20 mg 00:00: (40 mg) by [place] tablet 00 mouth daily with Cathie gregory. [facility] Losartan Losartan No 1{table QD Losartan Potassium-H Potassium-H 8 t} Potassium- CTZ 100-25 CTZ 100-25 00:00: HCTZ MG MG 00 100-25 MG Losartan Losartan 0 No 1{table QD Losartan Potassium-H Potassium-H 06-14 t} Potassium- CTZ 100-25 CTZ 100-25 00:00: [...] 00:00 MG 00 :00 hydroCHLORO 2021-0 Yes [id number] TAKE 1 Univers thiazide 25 04-21 TABLET BY ity of mg tablet 00:00: MOUTH [place] 00 EVERY DAY Medical Branch hydroCHLORO 2021-0 2021- No [id number] TAKE 1 Univers thiazide 25 608-02 TABLET BY it y of mg tablet 00:00: 00:00 MOUTH [place] 00 :00 EVERY DAY Medical Branch aspirin 81 2020-0 Yes 81mg Take 81 mg U nivers mg chewable 9-20 by mouth ity of tablet 09:37: daily. [place] 56 Medical Branch naproxen 2020-0 Yes 220mg Take 220 Univ ers sodium 9-20 mg by ity of (ALEVE) 220 09:37: mouth [place] mg tablet 56 daily. Medical Branch acetaminoph 2020-0 Yes 500mg Take 500 U nivers en 500 mg 9-20 mg by ity of tablet 09:37: mouth 4 [place] 56 (four) Medical times Branch daily. aspirin 81 2020-0 Yes 81mg Take 81 mg U nivers mg chewable 9-20 by mouth ity of tablet 09:37: daily. Medical Branch naproxen 2020-0 Yes 220mg Take 220 Univ ers sodium 9-20 mg by ity of (ALEVE) 220 09:37: mouth [place] mg tablet 56 daily. Medical Branch acetaminoph 2020-0 Yes 500mg Take 500 U nivers en 500 mg 9-20 mg by ity of tablet 09:37: mouth 4 [place] 56 (four) Medical times Branch daily. aspirin 81 2020-0 Yes 81mg Take 81 mg U nivers mg chewable 9-20 by mouth ity of tablet 09:37: daily. Medical Branch naproxen 2020-0 Yes 220mg Take 220 Univ ers sodium 9-20 mg by ity of (ALEVE) 220 09:37: mouth [place] mg tablet 56 daily. Medical Branch acetaminoph 2020-0 Yes 500mg Take 500 U nivers en 500 mg 9-20 mg by ity of tablet 09:37: mouth 4 [place] 56 (four) Medical times Branch daily. aspirin 81 2020-0 Yes 81mg Take 81 mg U nivers mg chewable 9-20 by mouth ity of tablet 09:37: daily. Medical Branch naproxen 2020-0 Yes 220mg Take 220 Univ ers sodium 9-20 mg by ity of (ALEVE) 220 09:37: mouth [place] mg tablet 56 daily. Medical Branch acetaminoph 2020-0 Yes 500mg Take 500 U nivers en 500 mg 9-20 mg by ity of tablet 09:37: mouth 4 [place] 56 (four) Medical times Branch daily. aspirin 81 2020-0 Yes 81mg Take 81 mg U nivers mg chewable 9-20 by mouth ity of tablet 09:37: daily. [place] [address] Medical Branch naproxen 2020-0 Yes 220mg Take 220 Univ ers sodium 9-20 mg by ity of (ALEVE) 220 09:37: mouth [place] mg tablet 56 daily. Medical Branch acetaminoph 1-0 Yes 500mg Take 500 U nivers en 500 mg 9-20 mg by ity of tablet 09:37: mouth 4 [place] 56 (four) Medical times Branch daily. aspirin 81 2020-0 Yes 81mg Take 81 mg U nivers mg chewable 9-20 by mouth ity of tablet 09:37: daily. [place] [address] Medical Branch naproxen 2020-0 Yes 220mg Take 220 Univ ers sodium 9-20 mg by ity of (ALEVE) 220 09:37: mouth [place] mg tablet 56 daily. Medical Branch acetaminoph 2020-0 Yes 500mg Take 500 U nivers en 500 mg 9-20 mg by ity of tablet 09:37: mouth 4 [place] 56 (four) Medical times Branch daily. aspirin 81 2020-0 Yes 81mg Take 81 mg U nivers mg chewable 9-20 by mouth ity of tablet 09:37: daily. [place] [address] Medical Branch naproxen 2020-0 Yes 220mg Take 220 Univ ers sodium 9-20 mg by ity of (ALEVE) 220 09:37: mouth [place] mg tablet 56 daily. Medical Branch acetaminoph 2020-0 Yes 500mg Take 500 U nivers en 500 mg 9-20 mg by ity of tablet 09:37: mouth 4 [place] [address] ([facility]) Medical times Branch daily. aspirin 81 2020-0 Yes 81mg Take 81 mg U nivers mg chewable 9-20 by mouth ity of tablet 09:37: daily. [place] [address] Medical Branch naproxen 2020-0 Yes 220mg Take 220 Univ ers sodium 9-20 mg by ity of (ALEVE) 220 09:37: mouth [place] mg tablet 56 daily. Medical Branch acetaminoph 2020-0 Yes 500mg Take 500 U nivers en 500 mg 9-20 mg by ity of tablet 09:37: mouth 4 [place] [address] ([facility]) Medical times Branch daily. aspirin 81 2020-0 Yes 81mg Take 81 mg U nivers mg chewable 9-20 by mouth ity of tablet 09:37: daily. [place] [address] Medical Branch naproxen 2020-0 Yes 220mg Take 220 Univ ers sodium 9-20 mg by ity of (ALEVE) 220 09:37: mouth [place] mg tablet 56 daily. Medical Branch acetaminoph 2020-0 Yes 500mg Take 500 U nivers en 500 mg 9-20 mg by ity of tablet 09:37: mouth 4 [place] [address] ([facility]) Medical times Branch daily. aspirin 81 2020-0 Yes 81mg Take 81 mg U nivers mg chewable 9-20 by mouth ity of tablet 09:37: daily. [place] [address] Medical Branch naproxen 2020-0 Yes 220mg Take 220 Univ ers sodium 9-20 mg by ity of (ALEVE) 220 09:37: mouth [place] mg tablet 56 daily. Medical Branch acetaminoph 2020-0 Yes 500mg Take 500 U nivers en 500 mg 9-20 mg by ity of tablet 09:37: mouth 4 [place] 56 (four) Medical times Branch daily. aspirin 81 2020-0 Yes 81mg Take 81 mg U nivers mg chewable 9-20 by mouth ity of tablet 09:37: daily. [place] [address] Medical Branch naproxen 2020-0 Yes 220mg Take 220 Univ ers sodium 9-20 mg by ity of (ALEVE) 220 09:37: mouth [place] mg tablet 56 daily. Medical Branch acetaminoph 2020-0 Yes 500mg Take 500 U nivers en 500 mg 9-20 mg by ity of tablet 09:37: mouth 4 [place] 56 (four) Medical times Branch daily. methylPREDN 2020-0 Yes [id number] Take by Univers ISolone 9-20 mouth ity of (MEDROL, 00:00: SEE-INSTRU Brian as RHONDA,) 4 mg 00 CTIONS. Medica l tablets follow Branch package directions methylPREDN 1-0 Yes [id number] Take by [facility] ISolone 9-20 mouth ity of (MEDROL, 00:00: SEE-INSTRU Brian as RHONDA,) 4 mg 00 CTIONS. Medica l tablets follow Branch package directions methylPREDN 1-0 Yes [id number] Take by Univers ISolone 9-20 mouth ity of (MEDROL, 00:00: SEE-INSTRU Brian as RHONDA,) 4 mg 00 CTIONS. Medica l tablets follow Branch package directions methylPREDN 2021-0 Yes [id number] Take by Univers ISolone 9-20 mouth ity of (MEDROL, 00:00: SEE-INSTRU Brian as RHONDA,) 4 mg 00 CTIONS. Medica l tablets follow Branch package directions methylPREDN 2021-0 Yes [id number] Take by Univers ISolone 9-20 mouth ity of (MEDROL, 00:00: SEE-INSTRU Brian as RHONDA,) 4 mg 00 CTIONS. Medica l tablets follow Branch package directions methylPREDN 2020-0 Yes [id number] Take by Univers ISolone 9-20 mouth ity of (MEDROL, 00:00: SEE-INSTRU Brian as RHONDA,) 4 mg 00 CTIONS. Medica l tablets follow Branch package directions methylPREDN 2020-0 Yes [id number] Take by Univers ISolone 9-20 mouth ity of (MEDROL, 00:00: SEE-INSTRU Brian as RHONDA,) 4 mg 00 CTIONS. Medica l tablets follow Branch package directions methylPREDN 2020-0 Yes [id number] Take by Univers ISolone 9-20 mouth ity of (MEDROL, 00:00: SEE-INSTRU Brian as RHONDA,) 4 mg 00 CTIONS. Medica l tablets follow Branch package directions methylPREDN 2020-0 Yes [id number] Take by Univers ISolone 9-20 mouth ity of (MEDROL, 00:00: SEE-INSTRU Brian as RHONDA,) 4 mg 00 CTIONS. Medica l tablets follow Branch package directions methylPREDN 2020-0 Yes [id number] Take by Univers ISolone 9-20 mouth ity of (MEDROL, 00:00: SEE-INSTRU Brian as RHONDA,) 4 mg 00 CTIONS. Medica l tablets follow Branch package directions methylPREDN 2020-0 Yes [id number] Take by Univers ISolone 9-20 mouth ity of (MEDROL, 00:00: SEE-INSTRU Brian as RHONDA,) 4 mg 00 CTIONS. Medica l tablets follow Branch package directions methylPREDN 2020-0 Yes [id number] Take by Univers ISolone 9-20 mouth ity of (MEDROL, 00:00: SEE-INSTRU Brian as RHONDA,) 4 mg 00 CTIONS. Medica l tablets follow Branch package directions methylPREDN 1-0 Yes [id number] Take by Univers ISolone 9-20 mouth ity of (MEDROL, 00:00: SEE-INSTRU Brian as RHONDA,) 4 mg 00 CTIONS. Medica l tablets follow Branch package directions losartan 50 2020-0 2020- No 50mg Take 50 mg Univers mg tablet 03-31-18 by mouth ity o f 09:58: 00:00 daily. [place] 14 :00 Medical Branch losartan 50 2020-0 2020- No 50mg Take 50 mg Univers mg tablet 5-18 05-18 by mouth ity o f 09:58: 00:00 daily. [place] 14 :00 Medical Branch hydroCHLORO 1-0 Yes [id number] TK 1 T PO Univers thiazide 25 5-18 QD ity of mg tablet 00:00: [place] 00 Medical Branch losartan 50 2020-0 Yes [id number] 50mg Take 1 Univers mg tablet 5-18 tablet by ity o f 00:00: mouth [place] 00 daily. Medical Branch hydroCHLORO 2021-0 Yes [id number] TK 1 T PO Univers thiazide 25 5-18 QD ity of mg tablet 00:00: [place] 00 Medical Branch losartan 50 2020-0 Yes [id number] 50mg Take 1 Univers mg tablet 5-18 tablet by ity o f 00:00: mouth [place] 00 daily. Medical Branch hydroCHLORO 1-0 Yes [id number] TK 1 T PO Univers thiazide 25 5-18 QD ity of mg tablet 00:00: [place] 00 Medical Branch losartan 50 2020-0 Yes [id number] 50mg Take 1 Univers mg tablet 5-18 tablet by ity o f 00:00: mouth [place] 00 daily. Medical Branch hydroCHLORO 1-0 Yes [id number] TK 1 T PO Univers thiazide 25 5-18 QD ity of mg tablet 00:00: [place] 00 Medical Branch losartan 50 2020-0 Yes [id number] 50mg Take 1 Univers mg tablet 5-18 tablet by ity o f 00:00: mouth [place] 00 daily. Medical Branch losartan 50 2020-0 Yes [id number] 50mg Take 1 Univers mg tablet 5-18 tablet by ity o f 00:00: mouth [place] 00 daily. Medical Branch losartan 50 1-0 Yes [id number] 50mg Take 1 Univers mg tablet 5-18 tablet by ity o f 00:00: mouth [place] 00 daily. Medical Branch losartan 50 1-0 Yes [id number] 50mg Take 1 Univers mg tablet 5-18 tablet by ity o f 00:00: mouth [place] 00 daily. Medical Branch losartan 50 1-0 Yes [id number] 50mg Take 1 Univers mg tablet 5-18 tablet by ity o f 00:00: mouth [place] 00 daily. Medical Branch losartan 50 2020-0 Yes [id number] 50mg Take 1 Univers mg tablet 5-18 tablet by ity o f 00:00: mouth [place] 00 daily. Medical Branch losartan 50 2021-0 Yes [id number] 50mg Take 1 Univers mg tablet 5-18 tablet by ity o f 00:00: mouth [place] 00 daily. Medical Branch losartan 50 2020-0 Yes [id number] 50mg Take 1 Univers mg tablet 5-18 tablet by ity o f 00:00: mouth [place] 00 daily. Medical Branch losartan 50 0 2022- No [id number] 50mg Take 1 Univers mg tablet 03-31 tablet by ity of 00:00: 00:00 mouth [place] 00 :00 daily. Medical Branch losartan 50 0 2022- No [id number] 50mg Take 1 Univers mg tablet 03-31- tablet by ity of 00:00: 00:00 mouth [place] 00 :00 daily. Medical Branch hydroCHLORO 2021- No [id number] TK 1 T PO Univers thiazide 25 03-31-08 QD ity of mg tablet 00:00: 00:00 [place] 00 :00 [facility] Branch hydroCHLORO 2017-2020- No TK 1 T PO Univers thiazide 25 0-04 -18 QD ity of mg tablet 00:00: 00:00 [place] 00 :00 [facility] Branch hydroCHLORO 2017-11- No TK 1 T PO Univers thiazide 25 0-04 05-18 QD ity of mg tablet 00:00: 00:00 [place] 00 :00 [facility] hydroCHLORO hydroCHLORO No 1{table QD hydroCHLOR thiazide [...] MG t} 81 MG Losartan Losartan No Losartan Potassium-H Potassium-H Potassium- CTZ 100-25 CTZ 100-25 HCTZ MG MG 100-25 MG Metoprolol Metoprolol No Metoprolol Succinate Succinate Succinate ER 25 MG ER 25 MG ER 25 MG Losartan Losartan No Losartan Potassium-H Potassium-H Potassium- CTZ 100-25 CTZ 100-25 HCTZ MG MG 100-25 MG Metoprolol Metoprolol No Metoprolol Succinate Succinate Succinate ER 25 MG ER 25 MG ER 25 MG Aspirin 81 Aspirin 81 No 1{table QD Aspirin 81 81 MG 81 MG t} 81 MG Aspirin 81 Aspirin 81 No 1{table QD Aspirin 81 81 MG 81 MG t} 81 MG Losartan Losartan No 1{table BID Losartan Potassium Potassium t} Potassium 50 MG 50 MG 50 MG Immunizations Ordered Filled Date Status Comments Source Immunization Name Immunization Name Flucelvax - single Flucelvax - single 2022-09-20 [facility] syringe 10:15:00 [facility] Flucelvax - single Flucelvax - single 2022-09-20 Completed [facility] dose syringe dose syringe 10:15:00 [facility] SARS-COV-2 COVID-19 2021-02-08 Completed Unive [...] rsity of MODERNA 12+ YRS 00:00:00 [place] Med ical VACCINE Branch SARS-COV-2 COVID-19 2021-02-08 Completed Unive rsity of MODERNA 12+ YRS 00:00:00 [place] [facility] ical VACCINE Branch SARS-COV-2 COVID-19 2021-02-08 Completed Unive rsity of MODERNA 12+ YRS 00:00:00 [place] [facility] ical VACCINE Branch SARS-COV-2 COVID-19 2021-02-08 Completed Unive rsity of MODERNA 12+ YRS 00:00:00 [place] [facility] ical VACCINE Branch SARS-COV-2 COVID-19 2021-02-08 Completed Unive rsity of MODERNA 12+ YRS 00:00:00 [place] [facility] ical VACCINE Branch SARS-COV-2 COVID-19 2021-02-08 Completed Unive rsity of MODERNA 12+ YRS 00:00:00 [place] [facility] ical VACCINE Branch SARS-COV-2 COVID-19 2021-02-08 Completed Unive rsity of MODERNA 12+ YRS 00:00:00 [place] [facility] ical VACCINE Branch SARS-COV-2 COVID-19 2021-02-08 Completed Unive rsity of MODERNA 12+ YRS 00:00:00 [place] [facility] ical VACCINE Branch SARS-COV-2 COVID-19 2021-01-11 Completed Unive rsity of MODERNA VACCINE 00:00:00 [place] [facility] ical Branch SARS-COV-2 COVID-19 2021-01-11 Completed Unive rsity of MODERNA VACCINE 00:00:00 [place] [facility] ical Branch SARS-COV-2 COVID-19 2021-01-11 Completed Unive rsity of MODERNA VACCINE 00:00:00 [place] Med ical Branch SARS-COV-2 COVID-19 2021-01-11 Completed Unive rsity of MODERNA VACCINE 00:00:00 [place] [facility] ical Branch SARS-COV-2 COVID-19 2021-01-11 Completed Unive rsity of MODERNA VACCINE 00:00:00 [place] [facility] ical Branch SARS-COV-2 COVID-19 2021-01-11 Completed Unive rsity of MODERNA 12+ YRS 00:00:00 [place] [facility] ical VACCINE Branch SARS-COV-2 COVID-19 2021-01-11 Completed Unive rsity of MODERNA 12+ YRS 00:00:00 [place] [facility] ical VACCINE Branch SARS-COV-2 COVID-19 2021-01-11 Completed Unive rsity of MODERNA 12+ YRS 00:00:00 [place] [facility] ical VACCINE Branch SARS-COV-2 COVID-19 2021-01-11 Completed Unive rsity of MODERNA 12+ YRS 00:00:00 [place] [facility] ical VACCINE Branch SARS-COV-2 COVID-19 2021-01-11 Completed Unive rsity of MODERNA 12+ YRS 00:00:00 [place] [facility] ical VACCINE Branch SARS-COV-2 COVID-19 2021-01-11 Completed Unive rsity of MODERNA 12+ YRS 00:00:00 [place] [facility] ical VACCINE Branch SARS-COV-2 COVID-19 2021-01-11 Completed Unive rsity of MODERNA 12+ YRS 00:00:00 [place] [facility] ical VACCINE Branch SARS-COV-2 COVID-19 2021-01-11 Completed Unive rsity of MODERNA 12+ YRS 00:00:00 [place] [facility] ical VACCINE Branch Influenza Virus 2020-12-17 Completed Universit y of Vaccine Quad .5 mL 00:00:00 [facility] IM 6+ MO Branch Influenza Virus 2020-12-17 Completed Universit y of Vaccine Quad .5 mL 00:00:00 [place] [facility] IM 6+ MO Branch Influenza Virus [...] y of Vaccine Quad .5 mL 00:00:00 [place] [facility] IM 6+ MO Branch Influenza Virus 2020-12-17 Completed Universit y of Vaccine Quad .5 mL 00:00:00 [place] [facility] IM 6+ MO Branch Influenza Virus 2020-12-17 Completed Universit y of Vaccine Quad .5 mL 00:00:00 [place] [facility] IM 6+ MO Branch (FLUZONE/FLULAVAL/F LUARIX) Influenza Virus 2020-12-17 Completed Universit y of Vaccine Quad .5 mL 00:00:00 [place] [facility] IM 6+ MO Branch (FLUZONE/FLULAVAL/F LUARIX) Influenza Virus 2020-12-17 Completed Universit y of Vaccine Quad .5 mL 00:00:00 [facility] IM 6+ MO Branch (FLUZONE/FLULAVAL/F LUARIX) TDAP (ADACEL) 2018-04-18 Completed University of VACCINE 00:00:00 [facility] [place] [facility] TDAP (ADACEL) 2018-04-18 Completed University of VACCINE 00:00:00 [facility] [place] [facility] TDAP (ADACEL) 2018-04-18 Completed University of VACCINE 00:00:00 [facility] [place] [facility] TDAP (ADACEL) 2018-04-18 Completed University of VACCINE 00:00:00 [facility] [place] [facility] TDAP (ADACEL) 2018-04-18 Completed University of VACCINE 00:00:00 [facility] [place] [facility] TDAP (ADACEL) 2018-04-18 Completed University of VACCINE 00:00:00 [place] [facility] TDAP (ADACEL) 2018-04-18 Completed University of VACCINE 00:00:00 [facility] Branch TDAP (ADACEL) 2018-04-18 Completed University of VACCINE 00:00:00 [facility] Branch TDAP (ADACEL) 2018-04-18 Completed University of VACCINE 00:00:00 [facility] Branch TDAP (ADACEL) 2018-04-18 Completed University of VACCINE 00:00:00 [facility] Branch TDAP (ADACEL) 2018-04-18 Completed University of VACCINE 00:00:00 [facility] Branch TDAP (ADACEL) 2018-04-18 Completed University of VACCINE 00:00:00 [facility] Branch TDAP (ADACEL) 2018-04-18 Completed University of VACCINE 00:00:00 [facility] [place] [facility] Td 2005-06-08 Completed University of 00:00:00 [facility] [place] [facility] Td 2005-06-08 Completed University of 00:00:00 [facility] Branch Td 2005-06-08 Completed University of 00:00:00 [facility] Branch Td 2005-06-08 Completed University of 00:00:00 [facility] Branch Td 2005-06-08 Completed University of 00:00:00 [facility] Branch Td 2005-06-08 Completed University of 00:00:00 [facility] [place] [facility] Td 2005-06-08 Completed University of 00:00:00 [facility] [place] [facility] TD, NOS 2005-06-08 Completed University of 00:00:00 [facility] [place] [facility] TD, NOS 2005-06-08 Completed University of 00:00:00 [facility] [place] [facility] TD, NOS 2005-06-08 Completed University of 00:00:00 [facility] [place] [facility] TD, NOS 2005-06-08 Completed University of 00:00:00 [facility] [place] [facility] TD, NOS 2005-06-08 Completed University of 00:00:00 [facility] [place] [facility] TD, NOS 2005-06-08 Completed University of 00:00:00 [facility] [place] [facility] Prevnar 20 (PCV20) Prevnar 20 (PCV20) Unknown Completed [facility] Flucelvax - single Flucelvax - single Unknown Completed [facility] - dose syringe dose syringe [facility] Prevnar 20 (PCV20) Prevnar 20 (PCV20) Unknown Completed [facility] Flucelvax - single Flucelvax - single Unknown Completed [facility] - dose syringe dose syringe [facility] Covid-19 Vaccine Unknown Completed [facility] MRNA (PF) 18yr+ Medical C enter (Moderna)([id number]) Covid-19 Vaccine Unknown Completed [facility] MRNA (PF) 18yr+ Medical C enter (Moderna)([id number]) Covid-19 Vaccine Unknown Completed [facility] MRNA (PF) 18yr+ Medical C enter (Moderna)([id number]) Covid-19 Vaccine Unknown Completed [facility] MRNA (PF) 18yr+ Medical C enter (Moderna)([id number]) TD, NOS Unknown Completed [facility] TDAP (ADACEL) Unknown Completed [facility] Influenza Virus Unknown Completed [facility] Vaccine Quad .5 mL [facility] IM 6+ MO Branch (FLUZONE/FLULAVAL/F LUARIX) TD, NOS Unknown Completed [facility] TDAP (ADACEL) Unknown Completed [facility] Influenza Virus Unknown Completed [facility] Vaccine Quad .5 mL [facility] IM 6+ MO Branch (FLUZONE/FLULAVAL/F LUARIX) Vital Signs Vital Name Observation Time Observation Value Comments Source HEIGHT 2023-09-14 13:59:00 167.6 cm WEIGHT 2023-09-14 13:59:00 127.461 kg HEIGHT 2023-09-06 06:41:00 167.6 cm WEIGHT 2023-09-06 06:41:00 135.626 kg HEIGHT 2023-09-02 08:21:00 167.6 cm WEIGHT 2023-09-02 08:21:00 135.626 kg HEIGHT 2023-09-06 06:41:00 167.6 cm WEIGHT 2023-09-06 06:41:00 135.626 kg HEIGHT 2023-09-02 08:21:00 167.6 cm WEIGHT 2023-09-02 08:21:00 135.626 kg HEIGHT 2023-08-03 10:56:00 167.6 cm WEIGHT 2023-08-03 10:56:00 136.986 kg Systolic blood 2023-07-25 19:54:00 141 mm[Hg] Univer sity of pressure [facility] [place] [facility] Diastolic blood 2023-07-25 19:54:00 72 mm[Hg] Unive rsity of pressure [facility] [place] [facility] Heart rate 2023-07-25 19:54:00 62 /min [facility] [place] [facility] Respiratory rate 2023-07-25 19:54:00 18 /min [facility] Body height 2023-07-25 19:54:00 167.6 cm Universi ty [facility] [place] [facility] Body weight 2023-07-25 19:54:00 136.533 kg [facility] BMI 2023-07-25 19:54:00 48.58 kg/m2 [facility] HEIGHT 2023-06-16 11:22:00 167.6 cm WEIGHT 2023-06-16 11:22:00 134.083 kg height 2023-02-08 11:50:00 63.00 [in_i] [facility] weight 2023-02-08 11:50:00 299.4 [lb_av] [facility] temperature 2023-02-08 11:50:00 96.8 [degF] [facility] bmi 2023-02-08 11:50:00 53.03 kg/m2 [facility] oximetry 2023-02-08 11:50:00 90 % [facility] respiratory rate 2023-02-08 11:50:00 16 /min [facility] blood pressure 2023-02-08 11:50:00 132 mm[Hg] [facility] blood pressure 2023-02-08 11:50:00 80 mm[Hg] [facility] height 2023-01-11 11:30:00 63.00 [in_i] [facility] weight 2023-01-11 11:30:00 300 [lb_av] [facility] temperature 2023-01-11 11:30:00 97.4 [degF] [facility] bmi 2023-01-11 11:30:00 53.14 kg/m2 [facility] blood pressure 2023-01-11 11:30:00 148 mm[Hg] [facility] - systolic [facility] blood pressure 2023-01-11 11:30:00 76 mm[Hg] [facility] height 2022-09-20 09:50:00 63.00 [in_i] Common [facility] weight 2022-09-20 09:50:00 301.1 [lb_av] Common [facility] temperature 2022-09-20 09:50:00 97.5 [degF] [facility] bmi 2022-09-20 09:50:00 53.33 kg/m2 Common [facility] oximetry 2022-09-20 09:50:00 96 % [facility] respiratory rate 2022-09-20 09:50:00 18 /min Comm on [facility] blood pressure 2022-09-20 09:50:00 142 mm[Hg] Common [facility] - systolic [facility] blood pressure 2022-09-20 09:50:00 76 mm[Hg] [facility] - diastolic [facility] height 2022-06-14 14:00:00 63.00 [in_i] Common [facility] weight 2022-06-14 14:00:00 305.0 [lb_av] [facility] temperature 2022-06-14 14:00:00 97.0 [degF] Common [facility] bmi 2022-06-14 14:00:00 54.02 kg/m2 Common [facility] oximetry 2022-06-14 14:00:00 98 % Common [facility] respiratory rate 2022-06-14 14:00:00 18 /min [facility] on [facility] blood pressure 2022-06-14 14:00:00 145 mm[Hg] [facility] - systolic [facility] blood pressure 2022-06-14 14:00:00 88 mm[Hg] [facility] - diastolic [facility] Systolic blood 2021-08-03 14:36:00 162 mm[Hg] Univer sity of pressure [facility] [place] [facility] Diastolic blood 2021-08-03 14:36:00 89 mm[Hg] Unive rsity of pressure [facility] Heart rate 2021-08-03 14:35:00 62 /min [facility] Body height 2021-08-03 14:35:00 167.6 cm [facility] Body weight 2021-08-03 14:35:00 134.718 kg [facility] BMI 2021-08-03 14:35:00 47.94 kg/m2 [facility] Systolic blood 2023-09-07 08:00:00 131 mm[Hg] [facility] Diastolic blood 2023-09-07 08:00:00 62 mm[Hg] [facility] Heart rate 2023-09-07 08:00:00 82 /min [facility] Body temperature 2023-09-07 08:00:[address] [facility] Respiratory rate 2023-09-07 08:00:00 18 /min [facility] Oxygen saturation in 2023-09-07 08:00:00 98 /min [facility] Arterial blood by Medical Ce nter Pulse oximetry Body height 2023-09-06 06:41:00 167.6 cm [facility] Body weight 2023-09-06 06:41:00 135.626 kg [facility] BMI 2023-09-06 06:41:00 48.26 kg/m2 [facility] Body height 2023-09-02 08:21:00 167.6 cm [facility] Body weight 2023-09-02 08:21:00 135.626 kg [facility] BMI 2023-09-02 08:21:00 48.26 kg/m2 [facility] Systolic blood 2023-06-16 11:22:00 138 mm[Hg] [facility] Diastolic blood 2023-06-16 11:22:00 82 mm[Hg] [facility] Heart rate 2023-06-16 11:22:00 78 /min [facility] Body temperature 2023-06-16 11:22:[address] [facility] Body height 2023-06-16 11:22:00 167.6 cm [facility] Body weight 2023-06-16 11:22:00 134.083 kg [facility] BMI 2023-06-16 11:22:00 47.71 kg/m2 [facility] Systolic blood 2022-07-15 05:40:39 119 mm[Hg] Univer sity of pressure [facility] Diastolic blood 2022-07-15 05:40:39 71 mm[Hg] Unive rsity of pressure [facility] on [facility] Heart rate 2022-07-15 05:40:39 91 /min [facility] on [facility] Body temperature 2022-07-15 05:40:39 36.78 Yamilet [facility] [place] [facility] Respiratory rate 2022-07-15 05:40:39 18 /min [facility] Stephy Parkinson on [facility] Oxygen saturation in 2022-07-15 05:40:39 100 /min [facility] Arterial blood by Stephy carrera Pulse oximetry [facility] Body height 2022-07-15 04:43:[address] [facility] Body weight 2022-07-15 04:43:[address] [facility] BMI 2022-07-15 04:43:00 50.63 kg/m2 [facility] Ste[facility] on [facility] Procedures Procedure Date / Time Performing Clinician Source Performed POCT-GLUCOSE METER 2023-09-07 06:03:00 Nazia Mosqueda [facility] POCT-GLUCOSE METER 2023-09-07 00:06:00 [place] Nazia [facility] BASIC METABOLIC PANEL 2023-09-07 00:01:00 [facility] W/PLT COUNT & AUTO 2023-09-07 00:01:00 Nazia Mosqueda [facility] CBC W/PLT COUNT & AUTO 2023-09-07 00:01:[address] [facility] S [facility] LAPAROSCOPY, WITH CATHERINE-EN-Y 2023-09-06 08:06:00 [facility] HERNIORRHAPHY, HIATAL 2023-09-06 08:06:00 [facility] LAPAROSCOPY, WITH CATHERINE-EN-Y 2023-09-06 08:00[facility] HERNIORRHAPHY, HIATAL 2023-09-06 08:00:00 [facility] TYPE AND SCREEN, AUTOMATED 2023-09-06 06:59:00 Manuel Lehman [facility] VITAMIN B1 2023-09-02 12:34:00 [facility] COMPREHENSIVE METABOLIC 2023-09-02 12:34:00 [facility] HEMOGLOBIN A1C 2023-09-02 12:34:00 [facility] CBC W/PLT COUNT & AUTO 2023-09-02 12:34:00 [facility] VITAMIN D, 25-HYDROXY 2023-09-02 12:34:00 [facility] VITAMIN B12 2023-09-02 12:34:00 [facility] IRON, SERUM 2023-09-02 12:34:00 [facility] CBC W/PLT COUNT & AUTO 2023-09-02 12:34:00 [facility] CONSENT/REFUSAL FOR 2023-07-25 19:45:06 Doctor Unassigned, [facility] DIAGNOSIS AND TREATMENT [facility] HM COLONOSCOPY 2022-10-16 00:00:[address] [facility] GLUCOSE LEVEL 2022-07-15 05:51:00 Glen Cerna [facility] BLOOD UREA NITROGEN 2022-07-15 05:51:00 Glen Cerna [facility] ELECTROLYTE PANEL 2022-07-15 05:51:00 Glen Cerna [facility] SERUM CREATININE 2022-07-15 05:51:00 Glen Cerna [facility] .GLOMERULAR FILTRATION RATE 2022-07-15 05:51:00 Glen Cerna [facility] CALCIUM LEVEL TOTAL 2022-07-15 05:51:00 Glen Cerna [facility] ALBUMIN LEVEL 2022-07-15 05:51:00 Glen Cerna [facility] ALKALINE PHOSPHATASE 2022-07-15 05:51:00 Glen Cerna [facility] ALANINE AMINOTRANSFERASE 2022-07-15 05:51:00 Glen Cerna [facility] ASPARTATE AMINOTRANSFERASE 2022-07-15 05:51:00 Glen Cerna [facility] TOTAL PROTEIN 2022-07-15 05:51:00 Glen Cerna [facility] FRACTIONATED BILIRUBIN 2022-07-15 05:51:00 Glen [facility] COMPLETE BLOOD COUNT W/ 2022-07-15 05:51:00 Glen Cerna [facility] DIFFERENTIAL [facility] COMPREHENSIVE METABOLIC 2022-07-15 05:51:00 Glen Cerna [facility] PANEL [facility] [place] MAGNESIUM LEVEL 2022-07-15 05:51:00 [place] [facility] PHOSPHORUS LEVEL 2022-07-15 05:51:00 [place] C[facility] Results CBC 2022-07-15 05:51:[address] [facility] [place] [place] Center MANUAL DIFFERENTIAL 2022-07-15 05:51:00 [place] Cerna [facility] DME/SUPPLY JUSTIFICATION 2021-08-12 05:01:00 Doctor Unassigned[facility] Plan of Care Planned Activity Planned Date Details Comments Source Future Scheduled 2032-10-16 Screening for malignant [facility] 00:00:00 neoplasm of colon Medical Ce nter (procedure) [code = 452781561] Future Scheduled 2032-10-16 Screening for malignant [facility] 00:00:00 neoplasm of colon Medical Ce nter (procedure) [code = 907933613] Future Scheduled 2032-10-16 Screening for malignant [facility] 00:00:00 neoplasm of colon Medical Ce nter (procedure) [code = 112055642] Future Scheduled 2032-10-16 Screening for malignant [facility] 00:00:00 neoplasm of colon Medical Ce nter (procedure) [code = 355724678] Future Scheduled 2032-10-16 Screening for malignant [facility] 00:00:00 neoplasm of colon Medical Ce nter (procedure) [code = 454588493] Future Scheduled 2032-10-16 Screening for malignant [facility] 00:00:00 neoplasm of colon Medical Ce nter (procedure) [code = 004202843] Future Scheduled 2028-04-18 DTAP/TDAP/TD VACCINES ([address] [facility] 00:00:00 - Td or Tdap) [code = Medica l Center DTAP/TDAP/TD VACCINES (2 - Td or Tdap)] Future Scheduled 2028-04-18 DTAP/TDAP/TD VACCINES ([address] [facility] 00:00:00 - Td or Tdap) [code = Medica l Center DTAP/TDAP/TD VACCINES (2 - Td or Tdap)] Future Scheduled 2028-04-18 DTAP/TDAP/TD VACCINES ([address] [facility] 00:00:00 - Td or Tdap) [code = Medica l Center DTAP/TDAP/TD VACCINES (2 - Td or Tdap)] Future Scheduled 2024-09-[address] [facility] 00:00:00 Counseling and Screening Med ical Center (12+) [code = Tobacco Cessation Counseling and Screening (12+)] Future Scheduled 2024-09-[address] [facility] 00:00:00 Counseling and Screening Med ical Center (12+) [code = Tobacco Cessation Counseling and Screening (12+)] Future Scheduled 2024-06-[address] [facility] 00:00:00 Counseling and Screening Med ical Center (12+) [code = Tobacco Cessation Counseling and Screening (12+)] Future Scheduled 2023-11-16 Screening for malignant [facility] 00:00:00 neoplasm of breast Medical C enter (procedure) [code = 239470601] Future Scheduled 2023-11-16 Screening for malignant [facility] 00:00:00 neoplasm of breast Medical C enter (procedure) [code = 649758571] Future Scheduled 2023-11-16 Screening for malignant [facility] 00:00:00 neoplasm of breast Medical C enter (procedure) [code = 940974246] Future Scheduled 2023-07-16 MEDICARE ANNUAL WELLNESS [facility] 00:00:00 (YEAR 2 or FIRST YEAR if Med ical Center no IPPE) [code = MEDICARE ANNUAL WELLNESS (YEAR 2 or FIRST YEAR if no IPPE)] Future Scheduled 2023-07-16 MEDICARE ANNUAL WELLNESS [facility] 00:00:00 (YEAR 2 or FIRST YEAR if Med ical Center no IPPE) [code = MEDICARE ANNUAL WELLNESS (YEAR 2 or FIRST YEAR if no IPPE)] Future Scheduled 2023-07-15 Influenza Vaccine (#1) [facility] [code = Influenza Vaccine Fl dical Center (#1)] Future Scheduled 2022-11-[address] [facility] 00:00:00 (12+) [code = DEPRESSION Med ical Center SCREENING (12+)] Future Scheduled 2022-11-14 Medicare IPPE (WELCOME TO [facility] 00:00:00 MEDICARE) [code = Medical Ce nter Medicare IPPE (WELCOME TO MEDICARE)] Future Scheduled 2022-11-[address] [facility] 00:00:00 (12+) [code = DEPRESSION Med ical Center SCREENING (12+)] Future Scheduled 2022-11-[address] [facility] 00:00:00 (12+) [code = DEPRESSION [facility] SCREENING (12+)] Future Scheduled 2021-10-12 Screening for malignant [facility] 00:00:00 neoplasm of cervix Medical C enter (procedure) [code = 118235395] Future Scheduled 2021-04-05 COVID-19 VACCINE (3 - [facility]00 Booster for [facility] series) [code = COVID-19 VACCINE (3 - Booster for Moderna series)] Future Scheduled 2021-04-05 COVID-19 VACCINE (3 - [facility]00 [facility] series) [code = COVID-19 VACCINE (3 - Booster for Moderna series)] Future Scheduled 2021-04-05 COVID-19 VACCINE (3 - [facility] 00[facility]00:00 [facility] series) [code = COVID-19 VACCINE (3 - Booster for Moderna series)] Future Scheduled 2016 SHINGLES VACCINES ([address] [facility] 00:00:00 2) [code = SHINGLES [facility] VACCINES (1 of 2)] Future Scheduled 2016 SHINGLES VACCINES ([address] [facility] 00:00:00 2) [code = SHINGLES [facility] VACCINES (1 of 2)] Future Scheduled 2016 SHINGLES VACCINES ([address] [facility] 00:00[facility]00 [facility]) [facility] Future Scheduled 2011 Lipid panel (procedure) [facility] 00:00:00 [code = 36772902] Medical Ce nter Future Scheduled 2011 Lipid panel (procedure) [facility] 00:00:00 [code = 41330979] Medical Ce nter Future Scheduled 2011 Lipid panel (procedure) [facility] 00:00:00 [code = 63787084] Medical Ce nter Future Scheduled 1987 Screening for malignant [facility] 00:00:00 neoplasm of cervix Medical C enter (procedure) [code = 629157797] Future Scheduled 1987 Screening for malignant [facility] 00:00:00 neoplasm of cervix Medical C enter (procedure) [code = 616712215] Future Scheduled 1984 HEPATITIS C [facility]CRE[facility]ING [facility]:00:00 [code = HEPATITIS C Medical Center SCREENING] Future Scheduled 1984 HEPATITIS C [facility]:00:00 [code = HEPATITIS C Medical Center SCREENING] Future Scheduled 1984 HEPATITIS C [facility]CRE[facility]ING [facility]:00:00 [code = HEPATITIS C Medical Center SCREENING] Future Scheduled [address] [facility] 00:00:00 virus screening Medical Cent er (procedure) [code = 043364578] Future Scheduled [address] [facility] 00:00:00 virus screening Medical Cent er (procedure) [code = 898030299] Future Scheduled [address] [facility] 00:00:00 virus screening Medical Cent er (procedure) [code = 867348497] Future Scheduled 1966 Sigmoidoscopy [code = [facility] Sigmoidoscopy] Medical Cente r Future Scheduled 1966 CT Colonography (combo) [facility] 00:00:00 [code = CT Colonography [facility] (combo)] Future Scheduled 1966 Screening for malignant [facility] 00:00:00 neoplasm of colon Medical Ce nter (procedure) [code = 671725465] Future Scheduled 1966 Screening for malignant [facility] 00:00:00 neoplasm of colon Medical Ce nter (procedure) [code = 310289398] Future Scheduled 1966 Sigmoidoscopy [code = [facility]:00:[facility] Sigmoidoscopy] Medical Cente r Future Scheduled 1966 CT Colonography (combo) [facility] 00:00:00 [code = CT Colonography [facility] (combo)] Future Scheduled 1966 Screening for malignant [facility] 00:00:00 neoplasm of colon Medical Ce nter (procedure) [code = 389323071] Future Scheduled 1966 Screening for malignant [facility] 00:00:00 neoplasm of colon Medical Ce nter (procedure) [code = 985129794] Future Scheduled 1966 Sigmoidoscopy [code = [facility] Sigmoidoscopy] Medical Gunnar r Future Scheduled 1966 CT Colonography (combo) [facility] 00:00:00 [code = CT Colonography [facility] (combo)] Future Scheduled 1966 Screening for malignant [facility] 00:00:00 neoplasm of colon Medical Ce nter (procedure) [code = 542047548] Future Scheduled 1966 Screening for malignant [facility] 00:00:00 neoplasm of colon Medical Ce nter (procedure) [code = 053292423] Encounters Start End Encounter Admission Attending Care Care Encounter Source Date/Time Date/Time Type Type Clinicians Facility Department ID 2022-10-08 Outpatient Arias, STLMLC STLC [id number] Common 10:28:00 [facility] 2022-10-06 Outpatient Arias, STLMLC STLC [id number] Common 10:00:03 [facility] 2022-09-20 Outpatient Arias, STLMLC STLC [id number] Common 09:55:04 [facility] 2022-09-17 Outpatient Arias, STLMLC STLC [id number] Common 15:49:02 [facility] 2022-07-14 Outpatient Arias, STLMLC STLC [id number] Common 14:28:02 [facility] 2022-06-29 Outpatient Weber, STLMLC STLC [id number] Common 16:24:01 [place] [facility] 2022-06-14 Outpatient Weber, STLC STLC [id number] Common 13:33:03 [place] [facility] 2021-09-13 Outpatient R ANITRA RUST OPH [id number] Univers 12:22:15 JAMLA major [facility] 2021-09-13 Outpatient R ANITRA RUST OPH [id number] Univers 05:31:06 JAMAL jaredsofia [facility] 2023-09-14 2023-09-14 Outpatient EL SILVANANER, [facility] [id number] 13:39:45 14:23:14 [facility] 2023-09-09 2023-09-09 Outpatient [id number] PRIV PRIV [id number] [facility] 00:00:00 00:00:00 romelia_S [id number] [facility] 2023-09-06 2023-09-07 Hospital MYRON Mosqueda, [facility] [id number] 05:58:00 12:41:00 Encounter [facility] 2023-09-06 2023-09-07 Inpatient [facility] [id number] [facility] 05:58:00 12:41:00 [place] 2023-09-07 2023-09-07 Telephone Hugo [facility] [id number] 00:00:00 00:00:00 [facility] 2023-09-06 2023-09-06 Anesthesia Lehman Manuel [facility] [id number] [facility] 08:06:00 10:55:00 Event [facility] 2023-09-06 2023-09-06 Surgery Madison, [facility] [id number] 08:30:00 10:30:00 [facility] 2023-09-06 2023-09-06 Travel [facility] [id number] [facility] 00:[facility]00 00:00:00 [facility] 2023-09-02 2023-09-02 Outpatient MYRON MOSQUEDA, [facility] [id number] [facility] 12:16:19 23:59:00 [place] 2023-09-02 2023-09-02 Travel [facility] [id number] [facility] 00:[facility]:00 00:00:00 [facility] 2023-08-19 2023-08-19 Clinical EL Missy, [facility] [id number] 10:00:00 11:29:28 Support [facility] 2023-08-15 2023-08-15 Telephone Johan, [facility] [id number] 00:00:00 00:00:00 Ely [facility] 2023-08-03 2023-08-03 Audio - EL [place], [facility] [id number] 10:45:00 11:50:29 [facility] 2023-08-03 2023-08-03 Outpatient EL SILVANAJULIUS, [facility] [id number] 00:00:00 00:00:00 [facility] 2023-08-03 2023-08-03 [facility] [id number] 00:00:00 00:00:00 [facility] 2023-07-28 2023-07-28 [facility] [id number] 00:00:00 00:00:00 [facility] 2023-07-26 2023-07-26 Outpatient SFA SFA [id number] Keron 15:02:47 15:02:47 0912 Jesús Alejandra 2023-07-25 2023-07-25 Outpatient R PERCY [facility] [id number] Univers 14:40:00 15:17:26 JOSE major o f [facility] 2023-07-25 2023-07-25 [facility] [id number] Univers 14:40:00 15:17:26 Visit Jose RAUSCH 350.1.13.10 ity of [place] [phone] Fl dicmt NAL 059 Branch [facility] 2023-07-25 2023-07-25 Orders Doctor YURI 1.2.840.114 [id number] Univers 00:00:00 00:00:00 Only Unassigned, BOUBACAR 350.1.13.[address] [facility] 4.2.7.2.686 Brian as [id number] [place] [address] Branch 2023-07-07 2023-07-07 Telephone Missy [facility] [id number] 00:00:00 00:00:00 [facility] 2023-06-29 2023-06-29 Telephone Percy NVIFEANYI 1.2.974.316 [id number] Univers 00:00:00 00:00:00 [facility] 350.1.13.10 ity mark [facility] 4.2.7.2.686 Brianrolanda chu SANTAMARIA [id number] Fl dical NAL 059 [facility] 2023-06-16 2023-06-16 Office MYRON Mosqueda, [facility] [id number] 11:30:00 12:07:03 Visit [facility] 2023-06-09 2023-06-09 Outpatient SFA SFA [id number] Keron 09:45:25 09:45:25 0727 [facility] 2023-06-06 2023-06-06 Outpatient SFA SFA [id number] Keron 15:29:05 15:29:05 0724 [facility] [place] 2023-05-12 2023-05-12 Outpatient SFA SFA [id number] Keron 17:05:54 17:05:54 0629 [facility] 2023-02-08 2023-02-08 OFFICE STLMLC STLMLC [id number] Co mmon 00:00:00 00:00:00 VISIT Spirit ESTAB PT - CHI LEVEL 4 [facility] 2023-01-11 2023-01-11 OFFICE STLMLC STLMLC [id number] Co mmon 00:00:00 00:00:00 VISIT Spirit ESTAB PT - CHI LEVEL 4 [facility] 2022-11-05 2022-11-05 (TEL) STLMLC STLMLC [id number] Co mmon 00:00:00 00:00:00 Spirit - CHI [facility] 2022-10-28 2022-10-28 Outpatient MYRON Garrett FAITH LULÚ [id number] [facility] 00:00:00 00:00:00 Sara [facility] 2022-09-20 2022-09-20 PREV VISIT STLMLC STLMLC [id number] Common 00:00:00 00:00:00 EST AGE Spirit 40-64 - CHI [facility] 2022-09-16 2022-09-16 [facility] [id number] Co mmon 00:00:00 00:00:00 [facility] 2022-09-02 2022-09-02 [facility] 1.2.840.114 [id number] Univers 00:00:00 00:00:00 [facility] 350.1.13.10 it y of [place] [facility] 4.2.7.2.686 Brian as ROSHAN?BLEA [phone] [address] OFFICE [facility] 2022-07-31 2022-07-31 [facility] 1.2.840.114 [id number] Univers 00:00:00 00:00:00 [facility] 350.1.13.10 it y of [place] [facility] 4.2.7.2.686 Brian as ROSHAN?BLEA [phone] [address] OFFICE [facility] 2022-07-14 2022-07-15 Emergency ER [facility], 1.2.840.1 [id number] Univers 23:49:00 02:30:00 Fransico 79543.1.1 ity of 3.412.2.7 [place] .3.606131 MD Alarcon8 [facility] 2022-07-14 2022-07-14 Travel 1.2.840.1 [id number] [id number] Univers 00:00:00 00:00:00 [id number] 350.1.13.41 ity of 3.412.2.7 2.[place]3.698 [place] .3.823183 084.8 MD Alarcon8 [facility] 2022-06-23 2022-06-23 (TEL) STLC STLC [id number] Co mmon 00:00:00 00:00:00 [facility] 2022-06-14 2022-06-[address] [facility] [id number] Co mmon 00:00:00 00:00:00 VISIT NEW Spir it PT LEVEL 4 - CHI [facility] 2022-04-21 2022-04-21 [facility] 1.2.840.114 [id number] Univers 00:00:00 00:00:00 [facility] 350.1.13.10 it y of [place] 4.2.7.2.686 Brian as ROSHAN?BLEA [phone] [address] MEDICAL OFFICE [facility] 2021-08-30 2021-08-30 [facility] 1.2.840.114 [id number] Univers 00:00:00 00:00:00 [facility] 350.1.13.10 it y of [place] 4.2.7.2.686 Brian as Roshan?Blea [id number] [address] Medical Office [facility] 2021-08-12 2021-08-12 Orders Doctor YURI 1.2.840.114 [id number] Univers 00:00:00 00:00:00 Only Unassigned, BOUBACAR 350.1.13.[address] 4.2.7.2.686 Brian as [phone] [address] 2021-08-03 2021-08-03 [facility] 1.2.840.114 [id number] Univers 09:26:41 09:41:41 Visit [facility] 350.1.13.10 it y of [place] 4.2.7.2.686 Brian as Roshan?Blea [phone] [address] Medical Office [facility] 2021-08-03 2021-08-03 Outpatient Nicole ANGELES [facility] [id number] Univers 09:15:00 09:15:00 DANIE major [facility] 2021-06-22 2021-06-22 Outpatient R AZALEA [facility] [id number] Univers 13:40:00 13:40:00 JOSÉ MIGUEL major [facility] 2021-06-03 2021-06-03 Outpatient VLADIMIR WARNER [facility] [id number] Univers 15:00:00 15:00:00 [facility] 2021-06-03 2021-06-03 Outpatient R VLADIMIR LIANG [facility] [id number] Univers 10:00:00 10:00:00 [facility] 2021-05-01 2021-05-01 Outpatient R KARTHIK [facility] [id number] Univers 09:00:00 09:00:00 DANIE [facility] 2021-04-01 2021-04-01 Outpatient R KEVEN LIANGARRito [facility] [id number] Univers 15:00:00 15:00:00 VLADIMIR LIANG [facility] 2021-03-31 2021-03-31 Outpatient R KARTHIK [facility] [id number] Univers 09:30:00 09:30:00 DANIE [facility] 2021-03-12 2021-03-12 Outpatient R KEVEN LIANGARRito [facility] [id number] Univers 19:30:00 19:30:00 KEVEN LIANGARRito [facility] 2021-03-09 2021-03-09 Outpatient R [facility] [id number] Univers 09:00:00 09:00:00 [facility] 2021-03-04 2021-03-04 Outpatient R ANITRA [facility] [id number] Univers 10:30:00 10:30:00 JAMAL [facility] 2021-02-18 2021-02-18 Outpatient R VLADIMIR LIANG [facility] [id number] Univers 13:30:00 13:30:00 VL[facility]IR [facility] 2021-02-08 2021-02-[address] [facility] [id number] Univers 09:50:00 09:50:00 [facility] 2021-02-04 2021-02-04 Outpatient R ANITRA [facility] [id number] Univers 10:15:00 10:15:00 JAMAL [facility] 2021-01-29 2021-01-29 [facility] [id number] Univers 11:30:00 11:30:00 J[facility]AL [facility] 2021-01-11 2021-01-[address] [facility] [id number] Univers 09:40:00 09:40:00 [facility] 2021-01-10 2021-01-[address] [facility] [id number] Univers 14:45:00 14:45:00 [facility] 2020-12-25 2020-12-25 [facility] 1.2.840.114 [id number] Univers 00:00:00 00:00:00 Secure Msg Jose RAUSCH 350.1.13.10 ity [facility] [place] [phone] [address] 2020-12-23 2020-12-23 Outpatient R AZUL [facility] [id number] Univers 14:00:00 14:00:00 AZUL KEVENUMM [facility] 2020-12-19 2020-12-19 Outpatient R [facility] [id number] Univers 09:00:00 09:00:00 [facility] 2020-12-18 2020-12-18 [facility] 1.2.840.114 [id number] Univers 00:00:00 00:00:00 Secure Msg Jose RAUSCH 350.1.13.10 ity [facility] 4[place] [phone] [address] 2020-12-17 2020-12-17 [facility] [id number] Univers 09:20:00 09:20:00 JOSE major o f [facility] Results Test Description Test Time Test Comments Results Result Comments Source MISCELLANEOUS LAB ORDER 2023-09-15 12:51:38 Test Item Value Reference Range Interpretation Comme nts SCAN RESULT (test code = 6678529) SEE SCANNED REPORT POC-Glucose [id number] 06:15:01 Test Item Value Reference Range Interpretation Comments POC-Glucose Meter (test 100 mg/dL 70-110 : TE STED AT SLSL code = 1538) [address], [facility] [address]: Bread Dough Mixer/Techni alexey ID = [id number] for Praneeth, Ayin or Lab Interpretation (test Normal code = 85500-7) [facility] [id number] 06:15:01 Test Item Value Reference Range Interpretation Comments POC-GLUCOSE METER 100 mg/dL 70-110 : TESTED A T SLSL 1317 (BEAKER) (test code [address], = 1538) [facility] 77 478: Bread Dough Mixer/Techni alexey ID = [id number] for Sally veronica, Ronainor BASIC METABOLIC [id number] 00:39:19 Test Item Value Reference Range Interpretation Comments SODIUM (BEAKER) 140 meq/L 135-148 (test code = 381) POTASSIUM 4.5 meq/L 3.6-5.5 Specimen slight ly (BEAKER) (test hemolyzed code = 379) CHLORIDE (BEAKER) 108 meq/L 98-106 H (test code = 382) CO2 (BEAKER) 21 meq/L 20-29 (test code = 355) BLOOD UREA 13 mg/dL 10-26 NITROGEN (BEAKER) (test code = 354) CREATININE 0.86 mg/dL 0.50-1.20 Specimen slight ly (BEAKER) (test hemolyzed code = 358) GLUCOSE RANDOM 128 mg/dL 70-110 H (BEAKER) (test code = 652) CALCIUM (BEAKER) 8.9 mg/dL 8.5-10.5 (test code = 697) EGFR (BEAKER) 79 Interpretatio n of eGFR (test code = mL/min/1.73 values Stage De scription 1092) sq m Result G1 Kathy l or high >=90 G2 Mildly decreased 60-89 G3a Mildl y to moderately 45-5 9 G3b Moderately to s everely 30-44 G4 Severl y decreased 15-29 G5 Kidney failure <15Reported eGF R is based on the CKD-EPI 2021 equation that d oes not use a race coefficientEsti mated GFR is not as accur ate as Creatinine Wendy stinson in predicting glom erular filtration rate . Estimated GFR is not appl icable for dialysis patien ts Bread Dough Mixer ID - [id number] ID - [id number] ID - [id number] ID - [id number] - [id number] ID - [id number] ID - [id number] ID - [id number] ID - [id number] ID - [id number] ID - [id number] ID - [id number] W/PLT COUNT & AUTO [id number] 00:25:48 Test Item Value Reference Range Interpretation Comments WHITE BLOOD CELL COUNT (BEAKER) 11.8 K/ L 4.0-10.0 H (test code = 775) RED BLOOD CELL COUNT (BEAKER) 4.66 M/ L 4.00-5.00 (test code = 761) HEMOGLOBIN (BEAKER) (test code = 11.5 GM/DL 12.0-15.5 L 410) HEMATOCRIT (BEAKER) (test code = 34.9 % 36.0-46.0 L 411) MEAN CORPUSCULAR VOLUME (BEAKER) 75 fL 82-99 L (test code = 753) MEAN CORPUSCULAR HEMOGLOBIN 24.7 pg 27.0-33.0 L (BEAKER) (test code = 751) MEAN CORPUSCULAR HEMOGLOBIN CONC 33.0 GM/DL 32.0-36.0 (BEAKER) (test code = 752) RED CELL DISTRIBUTION WIDTH 14.3 % 12.0-15.0 (BEAKER) (test code = 412) PLATELET COUNT (BEAKER) (test 344 K/CU MM 150-430 code = 756) MEAN PLATELET VOLUME (BEAKER) 10.9 fL 6.0-11.5 (test code = 754) NUCLEATED RED BLOOD CELLS 0 /100 WBC 0-0 (BEAKER) (test code = 413) NEUTROPHILS RELATIVE PERCENT 86 % (BEAKER) (test code = 429) LYMPHOCYTES RELATIVE PERCENT 8 % (BEAKER) (test code = 430) MONOCYTES RELATIVE PERCENT 5 % (BEAKER) (test code = 431) EOSINOPHILS RELATIVE PERCENT 0 % (BEAKER) (test code = 432) BASOPHILS RELATIVE PERCENT 0 % (BEAKER) (test code = 437) NEUTROPHILS ABSOLUTE COUNT 10.21 K/ L 1.80-8.00 H (BEAKER) (test code = 670) LYMPHOCYTES ABSOLUTE COUNT 0.94 K/ L 1.48-4.50 L (BEAKER) (test code = 414) MONOCYTES ABSOLUTE COUNT (BEAKER) 0.63 K/ L 0.00-1.30 (test code = 415) EOSINOPHILS ABSOLUTE COUNT 0.00 K/ L 0.00-0.50 (BEAKER) (test code = 416) BASOPHILS ABSOLUTE COUNT (BEAKER) 0.01 K/ L 0.00-0.20 (test code = 417) IMMATURE GRANULOCYTES-RELATIVE 0.40 % 0.00-0.00 H PERCENT (BEAKER) (test code = 2801) POCT-GLUCOSE [id number] 00:18:11 Test Item Value Reference Range Interpretation Comments POC-GLUCOSE METER 132 mg/dL 70-110 H : TESTED A T SLSL 1317 (BEAKER) (test code [address], = 1538) [facility] 77 478: Bread Dough Mixer/Techni alexey ID = [id number] for ChanceMaritza verma VITAMIN D, [id number] 16:30:52 Test Item Value Reference Range Interpretation Comments VITAMIN D 25-OH (BEAKER) (test 43.2 ng/mL 6.6-49.9 code = 2764) Effective 08/24/2017: Reference Range ChangeNew: 6.6-49.9 ng/mL Previous: 13.0- 47.8 ng/mLRecommendedVitamin D Target Range: 30.0-40.0 ng/mLOperator ID - ADMIN VITAMIN [id number] 13:41:40 Test Item Value Reference Range Interpretation Comments VITAMIN B12 (BEAKER) (test code = 1451 pg/mL 211-911 H 774) [employer] D[employer] Mixer ID - DSENSONHEMOGLOBIN [id number] 13:15:14 Test Item Value Reference Range Interpretation Comments HEMOGLOBIN A1C (BEAKER) (test code = 5.6 % 4.3-6.1 368) [employer] Mixer ID - DSENSONIRON, [id number] 13:12:31 Test Item Value Reference Range Interpretation Comments IRON (BEAKER) (test code = 547) 42.0 ug/dL 45.0-170.0 L [employer] Mixer ID - DSENSONCOMPREHENSIVE METABOLIC [id number] 13:12:20 Test Item Value Reference Range Interpretation Comments TOTAL PROTEIN 8.1 gm/dL 6.0-8.5 (BEAKER) (test code = 770) ALBUMIN (BEAKER) 4.2 g/dL 3.5-5.0 (test code = 1145) ALKALINE 85 U/L 30-115 PHOSPHATASE (BEAKER) (test code = 346) BILIRUBIN TOTAL 0.4 mg/dL 0.1-1.2 (BEAKER) (test code = 377) SODIUM (BEAKER) 137 meq/L 135-148 (test code = 381) POTASSIUM (BEAKER) 3.5 meq/L 3.6-5.5 L (test code = 379) CHLORIDE (BEAKER) 101 meq/L 98-106 (test code = 382) CO2 (BEAKER) (test 25 meq/L 20-29 code = 355) BLOOD UREA 27 mg/dL 10-26 H NITROGEN (BEAKER) (test code = 354) CREATININE 1.13 mg/dL 0.50-1.20 (BEAKER) (test code = 358) GLUCOSE RANDOM 110 mg/dL 70-110 (BEAKER) (test code = 652) CALCIUM (BEAKER) 10.1 mg/dL 8.5-10.5 (test code = 697) AST (SGOT) 18 U/L 5-40 (BEAKER) (test code = 353) ALT (SGPT) 17 U/L 5-50 (BEAKER) (test code = 347) EGFR (BEAKER) 57 Interpretatio n of eGFR (test code = 1092) mL/min/1.[address] age Description sq m Result G1 Kathy l or high >=90 G2 Mildly decreased 60-89 G3a Mildl y to moderately 45-5 9 G3b Moderately to s everely 30-44 G4 Severl y decreased 15-29 G5 Kidney failure <15Reported eGF R is based on the CKD-EPI 2020 equation that d oes not use a race coefficientEsti mated GFR is not as accur ate as Creatinine Wendy milad in predicting glom erular filtration rate . Estimated GFR is not appl icable for dialysis patien ts Bread Dough Mixer ID - DSENSONOperator ID - DSENSONOperator ID - DSENSONOperator ID - DSENSONOperator ID - DSENSONOperator ID - DSENSONOperator ID - DSENSONOperator ID - DSENSONOperator ID - DSENSONOperator ID - DSENSONOperator ID - DSENSONOperator ID - DSENSONOperator ID - DSENSONOperator ID - DSENSONOperatorID - DSENSONOperator ID - DSENSONOperator ID - DSENSONOperator ID - DSENSONOperator ID - DSENSONCBC W/PLT COUNT & AUTO [id number] 12:49:56 Test Item Value Reference Range Interpretation Comments WHITE BLOOD CELL COUNT (BEAKER) 6.4 K/ L 4.0-10.0 (test code = 775) RED BLOOD CELL COUNT (BEAKER) 5.10 M/ L 4.00-5.00 H (test code = 761) HEMOGLOBIN (BEAKER) (test code = 12.4 GM/DL 12.0-15.5 410) HEMATOCRIT (BEAKER) (test code = 38.8 % 36.0-46.0 411) MEAN CORPUSCULAR VOLUME (BEAKER) 76 fL 82-99 L (test code = 753) MEAN CORPUSCULAR HEMOGLOBIN 24.3 pg 27.0-33.0 L (BEAKER) (test code = 751) MEAN CORPUSCULAR HEMOGLOBIN CONC 32.0 GM/DL 32.0-36.0 (BEAKER) (test code = 752) RED CELL DISTRIBUTION WIDTH 14.3 % 12.0-15.0 (BEAKER) (test code = 412) PLATELET COUNT (BEAKER) (test 388 K/CU MM 150-430 code = 756) MEAN PLATELET VOLUME (BEAKER) 10.5 fL 6.0-11.5 (test code = 754) NUCLEATED RED BLOOD CELLS 0 /100 WBC 0-0 (BEAKER) (test code = 413) NEUTROPHILS RELATIVE PERCENT 61 % (BEAKER) (test code = 429) LYMPHOCYTES RELATIVE PERCENT 27 % (BEAKER) (test code = 430) MONOCYTES RELATIVE PERCENT 9 % (BEAKER) (test code = 431) EOSINOPHILS RELATIVE PERCENT 2 % (BEAKER) (test code = 432) BASOPHILS RELATIVE PERCENT 0 % (BEAKER) (test code = 437) NEUTROPHILS ABSOLUTE COUNT 3.88 K/ L 1.80-8.00 (BEAKER) (test code = 670) LYMPHOCYTES ABSOLUTE COUNT 1.75 K/ L 1.48-4.50 (BEAKER) (test code = 414) MONOCYTES ABSOLUTE COUNT (BEAKER) 0.59 K/ L 0.00-1.30 (test code = 415) EOSINOPHILS ABSOLUTE COUNT 0.14 K/ L 0.00-0.50 (BEAKER) (test code = 416) BASOPHILS ABSOLUTE COUNT (BEAKER) 0.02 K/ L 0.00-0.20 (test code = 417) IMMATURE GRANULOCYTES-RELATIVE 0.20 % 0.00-0.00 H PERCENT (BEAKER) (test code = 2801) CBC W/AUTO [id number] 00:00:00 Test Item Value Reference Range Interpretation Comments NUCLEATED RBCS (test 0.0 /100 WBC'S See_Comment [Aut omated message] code = 82052-7) The system w [facility] generated this result transmit navjot reference range : 0.0 /100 WBC'S. The reference range was not used to interpret this result as normal/abnormal . ABSOLUTE EOSINOPHILS 0.14 K/UL See_Comment [Autom ated message] (test code = The system [facility] 80215-5) generated this result transmit navjot reference range : 0.00-0.50 K/UL. The reference range was not used to interpret this result as normal/abnormal . ABSOLUTE LYMPHOCYTES 2.19 K/UL See_Comment [Autom ated message] (test code = The system [employer] 98853-0) generated this result transmit navjot reference range : 1.00-4.00 K/UL. The reference range was not used to interpret this result as normal/abnormal . ABSOLUTE MONOCYTES 0.46 K/UL See_Comment [Automat ed message] (test code = The system [employer] 39555-0) generated this result transmit navjot reference range : 0.20-1.00 K/UL. The reference range was not used to interpret this result as normal/abnormal . ABSOLUTE NEUTROPHILS 3.45 K/UL See_Comment [Autom ated message] (test code = The system [employer] 09343-3) generated this result transmit navjot reference range : 1.50-7.50 K/UL. The reference range was not used to interpret this result as normal/abnormal . BASOPHILS (test code 0.5 % = 09278-9) EOSINOPHILS (test 2.2 % code = 25067-4) HEMATOCRIT (test 36.6 % See_Comment [Automated message] code = 16505-6) The system [employer] generated this result transmit navjot reference range : 34.0-45.0 %. Th e reference range was not used to interpret this result as normal/abnormal . HEMOGLOBIN (test 12.0 G/DL See_Comment [Automated message] code = 718-7) The system [facility] generated this result transmit navjot reference range : 11.5-15.5 G/DL. The reference range was not used to interpret this result as normal/abnormal . LYMPHOCYTES (test 34.8 % code = 22033-2) MCH (test code = 24.6 PG See_Comment L [Automated message] 01863-7) The system [employer] generated this result transmit navjot reference range : 25.0-33.0 PG. T he reference range was not used to interpret this result as normal/abnormal . MCHC (test code = 32.8 G/DL See_Comment [Automate d message] 32257-1) The system [employer] generated this result transmit navjot reference range : 31.0-36.0 G/DL. The reference range was not used to interpret this result as normal/abnormal . MCV (test code = 75.0 fL See_Comment L [Automated message] 84503-8) The system [employer] generated this result transmit navjot reference range : 80.0-99.0 fL. T he reference range was not used to interpret this result as normal/abnormal . MONOCYTES (test code 7.3 % = 50145-8) NEUTROPHILS (test 54.9 % code = 46538-7) PLATELET COUNT (test 290 K/UL See_Comment [Autom ated message] code = 01410-3) The system [employer] generated this result transmit navjot reference range : 130-400 K/UL. T he reference range was not used to interpret this result as normal/abnormal . RBC (test code = 4.88 M/UL See_Comment [Automated message] 14937-5) The system [employer] generated this result transmit navjot reference range : 3.80-5.40 M/UL. The reference range was not used to interpret this result as normal/abnormal . RDW (test code = 15.7 % See_Comment H [Automated message] 79880-3) The system [employer] generated this result transmit navjot reference range : 11.5-15.0 %. Th e reference range was not used to interpret this result as normal/abnormal . WBC (test code = 6.3 K/UL See_Comment [Automated message] 45848-1) The system [employer] generated this result transmit navjot reference range : 3.5-11.0 K/UL. The reference range was not used to interpret this result as normal/abnormal . HEMOGLOBIN [id number] 00:00:00 Test Item Value Reference Range Interpretation Comments HEMOGLOBIN A1c (test 6.3 % See_Comment H [Autom ated message] The code = 4548-4) system which generated this result tra nsmitted reference range : 4.2-5.6 %. The referenc e range was not used to interpret this result as normal/abnormal . COMPREHENSIVE METABOLIC [id number] 00:00:00 Test Item Value Reference Range Interpretation Comments ALBUMIN (test code = 4.3 G/DL See_Comment [Autom ated message] 1751-7) The system [employer] generated this result transmit navjot reference range : 3.5-5.2 G/DL. T he reference range was not used to interpret this result as normal/abnormal . ALKALINE PHOSPHATASE 106 U/L See_Comment [Autom ated message] (test code = 6768-6) The sys tem which generated this result transmit navjot reference range : 40-136 U/L. The reference range was not used to interpret this result as normal/abnormal . BILIRUBIN, TOTAL 0.2 MG/DL See_Comment [Automated message] (test code = 1975-2) The sys tem which generated this result transmit navjot reference range : <=1.2 MG/DL. Th e reference range was not used to interpret this result as normal/abnormal . BUN (test code = 15 MG/DL See_Comment [Automated message] 3094-0) The system [employer] generated this result transmit navjot reference range : 6-20 MG/DL. The reference range was not used to interpret this result as normal/abnormal . CALCIUM (test code = 9.3 MG/DL See_Comment [Autom ated message] 56017-8) The system [employer] generated this result transmit navjot reference range : 8.5-10.5 MG/DL. The reference range was not used to interpret this result as normal/abnormal . CALC A/G RATIO (test 1.5 RATIO See_Comment [Autom ated message] code = 1759-0) The system [facility] generated this result transmit navjot reference range : 1.0-2.6 RATIO. The reference range was not used to interpret this result as normal/abnormal . CALC BUN/CREAT (test 17 RATIO See_Comment [Autom ated message] code = 3097-3) The system [facility] generated this result transmit navjot reference range : 6-28 RATIO. The reference range was not used to interpret this result as normal/abnormal . CALC GLOBULIN (test 2.8 G/DL See_Comment [Automa navjot message] code = 64021-1) The system [facility] generated this result transmit navjot reference range : 1.9-3.7 G/DL. T he reference range was not used to interpret this result as normal/abnormal . CARBON DIOXIDE (test 26 MEQ/L See_Comment [Autom ated message] code = 1963-8) The system [facility] generated this result transmit navjot reference range : 19-31 MEQ/L. Th e reference range was not used to interpret this result as normal/abnormal . CHLORIDE (test code 104 MEQ/L See_Comment [Automa navjot message] = 5-0) The system [facility] generated this result transmit navjot reference range : 95-107 MEQ/L. T he reference range was not used to interpret this result as normal/abnormal . CREATININE (test 0.90 MG/DL See_Comment [Automated message] code = 2160-0) The system [facility] generated this result transmit navjot reference range : 0.60-1.30 MG/DL . The reference range was not used to interpret this result as normal/abnormal . eGFR (2020 CKD-EPI) 75 ML/MIN/1.73 See_Comment [Auto mated message] (test code = The system [facility] [employer] 98287-4) generated this result transmit navjot reference range : >60 ML/MIN/1.73. Th e reference range was not used to interpret this result as normal/abnormal . GLUCOSE (test code = 103 MG/DL See_Comment H [Autom ated message] 1558-6) The system [facility] [employer] generated this result transmit navjot reference range : 70-99 MG/DL. Th e reference range was not used to interpret this result as normal/abnormal . POTASSIUM (test code 4.3 MEQ/L See_Comment [Autom ated message] = 2823-3) The system [employer] generated this result transmit navjot reference range : 3.5-5.4 MEQ/L. The reference range was not used to interpret this result as normal/abnormal . PROTEIN, TOTAL (test 7.1 G/DL See_Comment [Autom ated message] code = 2885-2) The system [employer] generated this result transmit navjot reference range : 6.1-8.3 G/DL. T he reference range was not used to interpret this result as normal/abnormal . AST (test code = 15 U/L See_Comment [Automated message] 1920-8) The system [employer] generated this result transmit navjot reference range : 9-40 U/L. The reference range was not used to interpret this result as normal/abnormal . ALT (test code = 16 U/L See_Comment [Automated message] 3362-6) The system [employer] generated this result transmit navjot reference range : 5-40 U/L. The reference range was not used to interpret this result as normal/abnormal . SODIUM (test code = 141 MEQ/L See_Comment [Automa navjot message] 2951-2) The system [employer] generated this result transmit navjot reference range : 133-146 MEQ/L. The reference range was not used to interpret this result as normal/abnormal . [id number] 17:47:00 Test Item Value Reference Range Interpretation Comments SURGICAL (test code = SR) R UN DATE: 11/01/22 [facility] PAGE 1 RUN TIME: 1747 Specimen Inquiry RUN USER: INTERFACE P ATIENT: CARLOS CARRILLO LOC: [place] U #: [id number] AGE/SX: 57/F ROOM: RE10/28/22REG DR: Sara Garrett MD : 67 BED: DIS: STATUS: PRE SDC TLOC: SPEC #: [id number] RECD: 10/29/22 STATUS: KARLOS RE #: [id number] CLARENCE: 10/28/22-[address]: Sara Garrett MD ENTERED: 10/29/22 SP TYPE: SURGICAL OTHR DR: Eloina Arias DO ORDERED: 11648, ANATOMIC SPEC, SPECIMEN TRACK COPIES TO: Sara Garrett MD [address] [place] [address] [address] [place] [id number] Eloina Arias DO [address] [place] [address] [address] [place] [address] PROCEDURES: 74302 (11/01/22-1512) SPECIMEN TRACK (10/29/22) TISSUES: A. POLYP - INTRAUTERINE POLYP FINAL DIAGNOSIS Uterus, endometrium, curettings:- Endometrial polyp Comment: Negative for atypia/malignancy. Suggest clinical correlation. GROSS DESCRIPTION Polyp. Received source undetermined consists of multiple fragments of pink-christy tissuefragments in a suction sac measuring aggregate of 2 x 1.2 x 0.3 cm. Entirely submitted asA1. Technical tissue processing and slide preparation performed at [id number] , [place] [address] Unless gross only, the diagnosis is based upon microscopic examination.Immunohistochemistr y: This test was developed and its performance characteristicsdetermined by this laboratory. It has not been approved nor does it need approval by the USFDA. Appropriate positive and negative controls are reviewed and judged to be acceptable.This laboratory is certified under the Clinical Laboratory Improvement Amendments (CLIA-88)as qualified to perform high complexity clinical laboratory testing. CONTINUED ON NEXT PAGE R UN DATE: 11/01/22 [facility] PAGE 2 RUN TIME: 085 Specimen Inquiry RUN USER: INTERFACE S PEC #: [id number]:[id number] PATIENT: CARLOS CARRILLO #[id number] (Continued) MICROSCOPIC DESCRIPTION Microscopic examination is performed on all specimens and the findings areincorporated into the final diagnosis. Please see diagnosis for findings. -------- Signed SIGNATURE ON Storm Edgar 11/01/22 1747 END OF REPORT HCG SERUM [id number] 16:13:00 Test Item Value Reference Range Interpretation Comments HCG SERUM QUAL (test SERUM NEGATIVE SCREEN NEGATIVE code = HCGQL) - XR CHEST 1 [id number] 14:16:00 [facility] : 1965 Sex: F Name: CARLOS CARRILLO [facility] : 1965 Age/S: 57 / F [id number] Unit #: [id number] Loc: [place] [address] Phys: April Poe MD Acct: [id number] Dis Date: Status: PRE [place] PHONE #: [phone] Exam Date: 10/28/2022 1410 FAX #: Reason: PRE SURGERY EXAMS: CPT: [id number] XR CHEST 1 V 7 1045 Fluoro [...] 1416 Reported and signed by: Keeley Flower M.D. CC: Sara Garrett MD; April Poe MD; [facility] PAGE 1 Signed Report Name: CARLOS CARRILLO [place] : 1965 Age/S: 57 / F [id number] Unit #: [id number] Loc: [place] [address] Phys: April Poe MD Acct: [id number] Dis Date: Status: PRE SDC PHONE #: [phone] Exam Date: 10/28/2022 1410 FAX #: Reason: PRE SURGERY EXAMS: CPT: [id number] XR CHEST 1 V 41530 Fluoro Time: DAP (Gy m2): Air Kerma (mGy): (Continued) Technologist: Mandeep Jeff, RT(R)(CT) Trnscb Date/Time: 10/28/2022 (1416) t.[email or web address] Orig Print D/T: S: 10/28/2022 (1420) PAGE 2 Signed ReportTHROMBOPLASTIN TIME [id number] 14:14:00 Test Item Value Reference Range Interpretation Comments THROMBOPLASTIN TIME PARTIAL 36.6 SECONDS 26-35 H (test code = PTT) COVID 19 INHOUSE [id number] 14:08:00 Test Item Value Reference Range Interpretation Comments COVID 19 INHOUSE AG NEGATIVE Negative Per manu facturer, (test code = negative result s should [id number]) be treated aspr esumptive and, if inconsi [...] symptoms co nsistent with COVID-19. BASIC METABOLIC [id number] 14:08:00 Test Item Value Reference Range Interpretation [...] MG/DL 8.5-10.1 N = CA) HCG SERUM [id number] 14:08:00 Test Item Value Reference Range Interpretation Comments HCG SERUM QUAL (test code = HCGQL) SCREEN NEGATIVE CBC W/AUTO [id number] 13:57:00 Test Item Value Reference Range Interpretation [...] (test code NO DIFF/SCN CRITERIA = MDIFF) [id number] 00:00:00 Test Item Value Reference Range Interpretation Comments Colonoscopy (test code = 97) Normal [facility] [id number] 00:00:00 Test Item Value Reference Range Interpretation Comments HM Colonoscopy (test code = 97) [facility] [id number] 00:00:00 Test Item Value Reference Range Interpretation Comments HM Colonoscopy (test code = 97) Normal [facility] [id number] 06:32:41 Test Item Value Reference Range Interpretation Comments Phosphorus (test code = 2777-1) 3.9 mg/dL 2.5-4.5 [facility] [id number] 06:32:41 Test Item Value Reference Range Interpretation Comments Phosphorus (test code = 2777-1) 3.9 mg/dL 2.5-4.5 [facility] [id number] 06:32:41 Test Item Value Reference Range Interpretation Comments Phosphorus (test code = 2777-1) 3.9 mg/dL 2.5-4.5 [facility] [id number] 06:32:41 Test Item Value Reference Range Interpretation Comments Phosphorus (test code = 2777-1) 3.9 mg/dL 2.5-4.5 [facility] [id number] 06:32:41 Test Item Value Reference Range Interpretation Comments Phosphorus (test code = 2777-1) 3.9 mg/dL 2.5-4.5 [facility] [id number] 06:32:40 Test Item Value Reference Range Interpretation Comments Calcium Lvl (test code = 06378-5) 9.5 mg/dL 8.4-10.2 [facility] [id number] 06:32:40 Test Item Value Reference Range Interpretation Comments Calcium Lvl (test code = 23463-9) 9.5 mg/dL 8.4-10.2 [facility] [id number] 06:32:40 Test Item Value Reference Range Interpretation Comments Calcium Lvl (test code = 42880-7) 9.5 mg/dL 8.4-10.2 [facility] [id number] 06:32:40 Test Item Value Reference Range Interpretation Comments Calcium Lvl (test code = 96490-2) 9.5 mg/dL 8.4-10.2 [facility] [id number] 06:32:40 Test Item Value Reference Range Interpretation Comments Calcium Lvl (test code = 10938-8) 9.5 mg/dL 8.4-10.2 [facility] [id number] 06:32:39 Test Item Value Reference Range Interpretation Comments Albumin Lvl (test code 3.8 See_Comment [Aut omated message] The = 4763) system which ge nerated this result tra nsmitted reference range : 3.5 - 5.2 gm/dL. The refe rence range was not used to interpret this result as normal/abnormal . [facility] [id number] 06:32:39 Test Item Value Reference Range Interpretation Comments Albumin Lvl (test code 3.8 See_Comment [Aut omated message] The = 4757) system which ge nerated this result tra nsmitted reference range : 3.5 - 5.2 gm/dL. The refe rence range was not used to interpret this result as normal/abnormal . [facility] [id number] 06:32:39 Test Item Value Reference Range Interpretation Comments Albumin Lvl (test code 3.8 See_Comment [Aut omated message] The = 5315) system which ge nerated this result tra nsmitted reference range : 3.5 - 5.2 gm/dL. The refe rence range was not used to interpret this result as normal/abnormal . [facility] [id number] 06:32:39 Test Item Value Reference Range Interpretation Comments Albumin Lvl (test code 3.8 See_Comment [Aut omated message] The = 4763) system which ge nerated this result tra nsmitted reference range : 3.5 - 5.2 gm/dL. The refe rence range was not used to interpret this result as normal/abnormal . [facility] [id number] 06:32:39 Test Item Value Reference Range Interpretation Comments Albumin Lvl (test code 3.8 See_Comment [Aut omated message] The = 47) system which ge nerated this result tra nsmitted reference range : 3.5 - 5.2 gm/dL. The refe rence range was not used to interpret this result as normal/abnormal . [facility] CenterAspart[facility] Aminotransferase 2022-07-15 06:32:38 Test Item Value Reference Range Interpretation Comments AST (test code = 13 U/L See_Comment [Automated message] The 1920-06) system which ge nerated this result transmit navjot reference range : <=32. The reference range was not used to interpr et this result as kathy l/abnormal. [facility] Center[facility] Aminotransferase 2022-07-15 06:32:38 Test Item Value Reference Range Interpretation Comments AST (test code = 1920-8) 13 U/L <=32 [facility] Aminotransferase 2022-07-15 06:32:38 Test Item Value Reference Range Interpretation Comments AST (test code = 1920-8) 13 U/L <=32 [facility] Aminotransferase 2022-07-15 06:32:38 Test Item Value Reference Range Interpretation Comments AST (test code = 1920-8) 13 U/L <=32 [facility] Center[facility] Aminotransferase 2022-07-15 06:32:38 Test Item Value Reference Range Interpretation Comments AST (test code = 1920-8) 13 U/L <=32 [facility] CenterElectrolyte [id number] 06:32:37 Test Item Value Reference Range Interpretation Comments Sodium Lvl (test code = 138 See_Comment [Au tomated message] 4815-2) The system [employer] generated this result transmitted ref erence range: 136 - 14 5 mEq/L. The refe rence range was not u sed to interpret this result as normal/abnor mal. Potassium Lvl (test code 3.3 See_Comment L [A utomated message] = 3408-3) The system [employer] generated this result transmitted ref erence range: 3.5 - 5. 1 mEq/L. The refe rence range was not u sed to interpret this result as normal/abnor mal. Chloride (test code = 102 See_Comment [Auto mated message] 0689-0) The system [employer] generated this result transmitted ref erence range: 98 - 107 mEq/L. The refe rence range was not u sed to interpret this result as normal/abnor mal. CO2 (test code = 2028-07) 26 See_Comment [A utomated message] The system [employer] generated this result transmitted ref erence range: 22 - 29 mEq/L. The reference r angie was not used to interpret this result as normal/abnor mal. Anion Gap (test code = 10 See_Comment [Aut omated message] 86711-0) The system [employer] generated this result transmitted ref erence range: 4 - 14 m Eq/L. The reference r angie was not used to interpret this result as normal/abnor mal. Lab Interpretation (test Abnormal code = 92150-9) [facility] Dbhym8432-03-88 06:32:37 Test Item Value Reference Range Interpretation Comments Sodium Lvl (test code = 138 See_Comment [Au tomated message] 1621-2) The system [employer] generated this result transmitted ref erence range: 136 - 14 5 mEq/L. The refe rence range was not u sed to interpret this result as normal/abnor mal. Potassium Lvl (test code 3.3 See_Comment L [A utomated message] = 2823-3) The system [employer] generated this result transmitted ref erence range: 3.5 - 5. 1 mEq/L. The refe rence range was not u sed to interpret this result as normal/abnor mal. Chloride (test code = 102 See_Comment [Auto mated message] ) The system [employer] generated this result transmitted ref erence range: 98 - 107 mEq/L. The refe rence range was not u sed to interpret this result as normal/abnor mal. CO2 (test code = 2028-07) 26 See_Comment [A utomated message] The system [employer] generated this result transmitted ref erence range: 22 - 29 mEq/L. The reference r angie was not used to interpret this result as normal/abnor mal. Anion Gap (test code = 10 See_Comment [Aut omated message] 40701-5) The system [employer] generated this result transmitted ref erence range: 4 - 14 m Eq/L. The reference r angie was not used to interpret this result as normal/abnor mal. Lab Interpretation (test Abnormal code = 11865-9) [facility] Coauh7436-74-94 06:32:37 Test Item Value Reference Range Interpretation Comments Sodium Lvl (test code = 138 See_Comment [Au tomated message] 2951-2) The system [employer] generated this result transmitted ref erence range: 136 - 14 5 mEq/L. The refe rence range was not u sed to interpret this result as normal/abnor mal. Potassium Lvl (test code 3.3 See_Comment L [A utomated message] = 4403-3) The system [employer] generated this result transmitted ref erence range: 3.5 - 5. 1 mEq/L. The refe rence range was not u sed to interpret this result as normal/abnor mal. Chloride (test code = 102 See_Comment [Auto mated message] 0) The system [employer] generated this result transmitted ref erence range: 98 - 107 mEq/L. The refe rence range was not u sed to interpret this result as normal/abnor mal. CO2 (test code = 2027-) 26 See_Comment [A utomated message] The system [employer] generated this result transmitted ref erence range: 22 - 29 mEq/L. The reference r angie was not used to interpret this result as normal/abnor mal. Anion Gap (test code = 10 See_Comment [Aut omated message] 02918-3) The system [employer] generated this result transmitted ref erence range: 4 - 14 m Eq/L. The reference r angie was not used to interpret this result as normal/abnor mal. Lab Interpretation (test Abnormal code = 58180-1) [facility] Rsdig8701-88-31 06:32:37 Test Item Value Reference Range Interpretation Comments Sodium Lvl (test code = 138 See_Comment [Au tomated message] 2951-2) The system [employer] generated this result transmitted ref erence range: 136 - 14 5 mEq/L. The refe rence range was not u sed to interpret this result as normal/abnor mal. Potassium Lvl (test code 3.3 See_Comment L [A utomated message] = 2823-3) The system [employer] generated this result transmitted ref erence range: 3.5 - 5. 1 mEq/L. The refe rence range was not u sed to interpret this result as normal/abnor mal. Chloride (test code = 102 See_Comment [Auto mated message] ) The system [employer] generated this result transmitted ref erence range: 98 - 107 mEq/L. The refe rence range was not u sed to interpret this result as normal/abnor mal. CO2 (test code = 2028-07) 26 See_Comment [A utomated message] The system [employer] generated this result transmitted ref erence range: 22 - 29 mEq/L. The reference r angie was not used to interpret this result as normal/abnor mal. Anion Gap (test code = 10 See_Comment [Aut omated message] 55087-5) The system [employer] generated this result transmitted ref erence range: 4 - 14 m Eq/L. The reference r angie was not used to interpret this result as normal/abnor mal. Lab Interpretation (test Abnormal code = 89183-3) [facility] [place] Ouhyq9383-81-26 06:32:37 Test Item Value Reference Range Interpretation Comments Sodium Lvl (test code = 138 See_Comment [Au tomated message] 2951-2) The system [employer] generated this result transmitted ref erence range: 136 - 14 5 mEq/L. The refe rence range was not u sed to interpret this result as normal/abnor mal. Potassium Lvl (test code 3.3 See_Comment L [A utomated message] = 2823-3) The system [employer] generated this result transmitted ref erence range: 3.5 - 5. 1 mEq/L. The refe rence range was not u sed to interpret this result as normal/abnor mal. Chloride (test code = 102 See_Comment [Auto mated message] ) The system [employer] generated this result transmitted ref erence range: 98 - 107 mEq/L. The refe rence range was not u sed to interpret this result as normal/abnor mal. CO2 (test code = 2028-07) 26 See_Comment [A utomated message] The system [employer] generated this result transmitted ref erence range: 22 - 29 mEq/L. The reference r angie was not used to interpret this result as normal/abnor mal. Anion Gap (test code = 10 See_Comment [Aut omated message] 86783-5) The system [employer] generated this result transmitted ref erence range: 4 - 14 m Eq/L. The reference r angie was not used to interpret this result as normal/abnor mal. Lab Interpretation (test Abnormal code = 61859-7) [facility] Toikk7072-59-25 06:32:36 Test Item Value Reference Range Interpretation [...] diabetes Lab Interpretation (test Abnormal code = 29634-5) [facility] Ezmxh2587-18-83 06:32:36 Test Item Value Reference Range Interpretation [...] diabetes Lab Interpretation (test Abnormal code = 18106-5) [facility] Zduka3479-27-19 06:32:36 Test Item Value Reference Range Interpretation [...] diabetes Lab Interpretation (test Abnormal code = 24797-4) [facility] Zzqma8017-99-73 06:32:36 Test Item Value Reference Range Interpretation [...] diabetes Lab Interpretation (test Abnormal code = 98516-6) [facility] Vztac3494-80-98 06:32:36 Test Item Value Reference Range Interpretation [...] diabetes Lab Interpretation (test Abnormal code = 26747-0) [facility] Uempxgqve2694-34-44 06:32:35Bili Total<0.3<=1.2 mg/dLUT [facility] Sgyywsyaz9678-32-97 06:32:35Bili Total<0.3<=1.2 mg/dLUT [facility] Lztzhzqlq5095-38-09 06:32:35Bili Total<0.3<=1.2 mg/dLUT [facility] Yccjrafjx5045-14-37 06:32:35Bili Total<0.3<=1.2 mg/dLUT [facility] Djesgzsvk5582-14-05 06:32:35Bili Total<0.3<=1.2 mg/dLUT [facility] HospitalGlomer[facility] Fil[facility] Neeu2201-26-69 06:32:34 Test Item Value Reference Range Interpretation Comments eGFR-AA (test code = 63 See_Comment Normal eGFR: >= 60 04684-8) mL/min/1.73 m2N ote: The eGFR is dannielle [...] failure <15 [Automated mess age] The system [employer] generated this result transmitted ref erence range: >=60 mL/min/1.73 sq. m. The reference range was not used to int erpret this result as normal/abnormal . eGFR-ELYSIA (test code = 54 See_Comment L Normal eGFR: >= 60 62184-9) mL/min/1.73 m2N ote: The eGFR is dannielle [...] estima navjot GFR. Stage Desc ription GFR mL/min/1.7 3 m21 Normal or high GFR >=902 Mildly de creased GFR 60-893a Mil dly to moderately decr eased GFR 45-593b Mod erately to severely dec reased GFR 30-444 Belkis rely decreased GFR 1 5-295 Kidney failure <15 [Automated mess age] The system [employer] generated this result transmitted ref erence range: >=60 mL/min/1.73 sq. m. The reference range was not used to int erpret this result as normal/abnormal . Lab Interpretation Abnormal (test code = 72330-6) [facility] Rate 2022-07-15 06:32:34 Test Item Value Reference Range Interpretation Comments eGFR-AA (test code = 63 See_Comment Normal eGFR: >= 60 84616-5) mL/min/1.73 m2N ote: The eGFR is dannielle culated using the CKD-E PI equation. The e GFR declines with a ge. eGFR <60 mL/min /1.73 m2 is considere d as "decreased". Th is equation should only be used for pat ients 18 and older. According to th greta [employer]'s dney Disease Outcome Quality [...] failure <15 [Automated mess age] The system [employer] generated this result transmitted ref erence range: >=60 mL/min/1.73 sq. m. The reference range was not used to int erpret this result as normal/abnormal . eGFR-ELYSIA (test code = 54 See_Comment L Normal eGFR: >= 60 94514-4) mL/min/1.73 m2N ote: The eGFR is dannielle [...] failure <15 [Automated mess age] The system [employer] generated this result transmitted ref erence range: >=60 mL/min/1.73 sq. m. The reference range was not used to int erpret this result as normal/abnormal . Lab Interpretation Abnormal (test code = 48224-4) [facility] Rate 2022-07-15 06:32:34 Test Item Value Reference Range Interpretation Comments eGFR-AA (test code = 63 See_Comment Normal eGFR: >= 60 89826-5) mL/min/1.73 m2N ote: The eGFR is dannielle [...] failure <15 [Automated mess age] The system [employer] generated this result transmitted ref erence range: >=60 mL/min/1.73 sq. m. The reference range was not used to int erpret this result as normal/abnormal . eGFR-ELYSIA (test code = 54 See_Comment L Normal eGFR: >= 60 12835-2) mL/min/1.73 m2N ote: The eGFR is dannielle [...] GFR >=902 Mildly de creased GFR 60-893a Mi ldly to moderately decr eased GFR 45-593b Mod erately to severely dec reased GFR 30-444 Belkis rely decreased GFR 1 5-295 Kidney failure <15 [Automated mess age] The system [employer] generated this result transmitted ref erence range: >=60 mL/min/1.73 sq. m. The reference range was not used to int erpret this result as normal/abnormal . Lab Interpretation Abnormal (test code = 98320-9) [facility] Rate 2022-07-15 06:32:34 Test Item Value Reference Range Interpretation Comments eGFR-AA (test code = 63 See_Comment Normal eGFR: >= 60 22184-3) mL/min/1.73 m2N ote: The eGFR is dannielle [...] failure <15 [Automated mess age] The system [employer] generated this result transmitted ref erence range: >=60 mL/min/1.73 sq. m. The reference range was not used to int erpret this result as normal/abnormal . eGFR-ELYSIA (test code = 54 See_Comment L Normal eGFR: >= 60 20290-3) mL/min/1.73 m2N ote: The eGFR is dannielle [...] failure <15 [Automated mess age] The system [employer] generated this result transmitted ref erence range: >=60 mL/min/1.73 sq. m. The reference range was not used to int erpret this result as normal/abnormal . Lab Interpretation Abnormal (test code = 18216-3) [facility] Rate 2022-07-15 06:32:34 Test Item Value Reference Range Interpretation Comments eGFR-AA (test code = 63 See_Comment Normal eGFR: >= 60 06729-0) mL/min/1.73 m2N ote: The eGFR is dannielle [...] failure <15 [Automated mess age] The system [employer] generated this result transmitted ref erence range: >=60 mL/min/1.73 sq. m. The reference range was not used to int erpret this result as normal/abnormal . eGFR-ELYSIA (test code = 54 See_Comment L Normal eGFR: >= 60 11694-2) mL/min/1.73 m2N ote: The eGFR is dannielle [...] failure <15 [Automated mess age] The system [employer] generated this result transmitted ref erence range: >=60 mL/min/1.73 sq. m. The reference range was not used to int erpret this result as normal/abnormal . Lab Interpretation Abnormal (test code = 42556-7) [facility] Bragvbb9952-30-76 06:32:33 Test Item Value Reference Range Interpretation Comments Total Protein (test code = 2885-2) 6.4 g/dL 6.4-8.3 [facility] Rgchipz4389-53-94 06:32:33 Test Item Value Reference Range Interpretation Comments Total Protein (test code = 2885-2) 6.4 g/dL 6.4-8.3 [facility] Plxwlop7975-91-94 06:32:33 Test Item Value Reference Range Interpretation Comments Total Protein (test code = 2885-2) 6.4 g/dL 6.4-8.3 [facility] Xvmzpqb9162-87-37 06:32:33 Test Item Value Reference Range Interpretation Comments Total Protein (test code = 2885-2) 6.4 g/dL 6.4-8.3 [facility] Djituxv6831-17-40 06:32:33 Test Item Value Reference Range Interpretation Comments Total Protein (test code = 2885-2) 6.4 g/dL 6.4-8.3 [facility] CenterMagn[facility] Vipbg4011-91-22 06:32:32 Test Item Value Reference Range Interpretation Comments Magnesium (test code = 38206-5) 1.9 mg/dL 1.6-2.6 [facility] Ksjlu7016-44-04 06:32:32 Test Item Value Reference Range Interpretation Comments Magnesium (test code = 88346-5) 1.9 mg/dL 1.6-2.6 [facility] Gulfv9704-32-10 06:32:32 Test Item Value Reference Range Interpretation Comments Magnesium (test code = 85544-1) 1.9 mg/dL 1.6-2.6 [facility] Obbyt7552-86-70 06:32:32 Test Item Value Reference Range Interpretation Comments Magnesium (test code = 53036-3) 1.9 mg/dL 1.6-2.6 [facility] Mujto8414-70-95 06:32:32 Test Item Value Reference Range Interpretation Comments Magnesium (test code = 95760-4) 1.9 mg/dL 1.6-2.6 [facility] CenterAlkaline Ytgnbtbpehi8733-85-67 06:32:31 Test Item Value Reference Range Interpretation Comments Alk Phos (test code = 6768-6) 103 U/L 35-104 [facility]Al[facility] Ejgwtjnpash0238-83-62 06:32:31 Test Item Value Reference Range Interpretation Comments Alk Phos (test code = 6768-6) 103 U/L 35-104 [facility] CenterAl[facility] Jqxmoilscke1268-44-78 06:32:31 Test Item Value Reference Range Interpretation Comments Alk Phos (test code = 6768-6) 103 U/L 35-104 [facility] CenterAlk[facility] Rtntczqvlzx9019-06-55 06:32:31 Test Item Value Reference Range Interpretation Comments Alk Phos (test code = 6768-6) 103 U/L 35-104 [facility] CenterAlk[facility] Jctxcmtnwak9701-32-58 06:32:31 Test Item Value Reference Range Interpretation Comments Alk Phos (test code = 6768-6) 103 U/L 35-104 [facility]ALT2022-[facility] 06:32:30 Test Item Value Reference Range Interpretation Comments ALT (test code = 12 U/L See_Comment [Automated message] The 1742-6) system which ge nerated this result transmit navjot reference range : <=33. The reference range was not used to interpr et this result as kathy l/abnormal. [facility] 06:32:30 Test Item Value Reference Range Interpretation Comments ALT (test code = 1742-6) 12 U/L <=33 [facility] 06:32:30 Test Item Value Reference Range Interpretation Comments ALT (test code = 1742-6) 12 U/L <=33 [facility] 06:[facility]30 Test Item Value Reference Range Interpretation Comments ALT (test code = 1742-6) 12 U/L <=33 [facility]ALT[facility] 06:32:30 Test Item Value Reference Range Interpretation Comments ALT (test code = 1742-6) 12 U/L <=33 [facility].Serum Rxtsoefgye1288-86-89 06:32:29 Test Item Value Reference Range Interpretation Comments Creatinine (test code = 2160-0) 1.14 mg/dL 0.51-0.95 H Lab Interpretation (test code = Abnormal 35364-9) [facility].Serum Brqgftjzaz5272-79-51 06:32:29 Test Item Value Reference Range Interpretation Comments Creatinine (test code = 2160-0) 1.14 mg/dL 0.51-0.95 H Lab Interpretation (test code = Abnormal 04673-3) [facility].Serum Dovxmwsqja2910-69-75 06:32:29 Test Item Value Reference Range Interpretation Comments Creatinine (test code = 2160-0) 1.14 mg/dL 0.51-0.95 H Lab Interpretation (test code = Abnormal 68858-9) [facility].Serum Zgdjegqvht2972-84-94 06:32:29 Test Item Value Reference Range Interpretation Comments Creatinine (test code = 2160-0) 1.14 mg/dL 0.51-0.95 H Lab Interpretation (test code = Abnormal 98878-9) [facility].Serum Tdjswtfdfv7546-97-55 06:32:29 Test Item Value Reference Range Interpretation Comments Creatinine (test code = 2160-0) 1.14 mg/dL 0.51-0.95 H Lab Interpretation (test code = Abnormal 91955-1) [facility] 06:32:28 Test Item Value Reference Range Interpretation Comments BUN (test code = 3094-0) 21 mg/dL 05-06 [facility] 06:32:28 Test Item Value Reference Range Interpretation Comments BUN (test code = 3094-0) 21 mg/dL 05-06 [facility] 06:32:28 Test Item Value Reference Range Interpretation Comments BUN (test code = 3094-0) 21 mg/dL 05-06 [facility] 06:32:28 Test Item Value Reference Range Interpretation Comments BUN (test code = 3094-0) 21 mg/dL 05-06 [facility] 06:32:28 Test Item Value Reference Range Interpretation Comments BUN (test code = 3094-0) 21 mg/dL 05-06 [facility]Differential2022-[facility] 06:05:24 Test Item Value Reference Range Interpretation [...] 0.4 % 0.0-0.4 IGRE % c ount 74776-4) includes Metamyelocytes, Myelocytes, and Promyelocytes. Neutrophil Abs (test code 8.29 K/uL 1.70-7.30 H = 751-8) Lymphocyte Abs (test code 1.57 K/uL 1.00-4.80 = 731-0) Monocyte Abs (test code = 0.55 K/uL 0.08-0.70 742-7) Eosinophil Abs (test code 0.08 K/uL 0.04-0.40 = 711-2) Basophil Abs (test code = 0.02 K/uL 0.00-0.10 704-7) IG Abs (test code = 0.04 K/uL 0.00-0.04 59676-1) Lab Interpretation (test Abnormal code = 47742-4) [facility] ZywlmvUdwezzabebss6543-12-00 06:05:24 Test Item Value Reference Range Interpretation [...] 0.4 % 0.0-0.4 IGRE % c ount 03530-6) includes Metamyelocytes, Myelocytes, and Promyelocytes. Neutrophil Abs (test code 8.29 K/uL 1.70-7.30 H = 751-8) Lymphocyte Abs (test code 1.57 K/uL 1.00-4.80 = 731-0) Monocyte Abs (test code = 0.55 K/uL 0.08-0.70 742-7) Eosinophil Abs (test code 0.08 K/uL 0.04-0.40 = 711-2) Basophil Abs (test code = 0.02 K/uL 0.00-0.10 704-7) IG Abs (test code = 0.04 K/uL 0.00-0.04 15923-0) Lab Interpretation (test Abnormal code = 31419-4) [facility] 06:05:24 Test Item Value Reference Range Interpretation [...] 0.4 % 0.0-0.4 IGRE % c ount 22575-4) includes Metamyelocytes, Myelocytes, and Promyelocytes. Neutrophil Abs (test code 8.29 K/uL 1.70-7.30 H = 751-8) Lymphocyte Abs (test code 1.57 K/uL 1.00-4.80 = 731-0) Monocyte Abs (test code = 0.55 K/uL 0.08-0.70 742-7) Eosinophil Abs (test code 0.08 K/uL 0.04-0.40 = 711-2) Basophil Abs (test code = 0.02 K/uL 0.00-0.10 704-7) IG Abs (test code = 0.04 K/uL 0.00-0.04 28390-3) Lab Interpretation (test Abnormal code = 61195-8) [facility] 06:05:24 Test Item Value Reference Range Interpretation [...] 0.4 % 0.0-0.4 IGRE % c ount 14337-2) includes Metamyelocytes, Myelocytes, and Promyelocytes. Neutrophil Abs (test code 8.29 K/uL 1.70-7.30 H = 751-8) Lymphocyte Abs (test code 1.57 K/uL 1.00-4.80 = 731-0) Monocyte Abs (test code = 0.55 K/uL 0.08-0.70 742-7) Eosinophil Abs (test code 0.08 K/uL 0.04-0.40 = 711-2) Basophil Abs (test code = 0.02 K/uL 0.00-0.10 704-7) IG Abs (test code = 0.04 K/uL 0.00-0.04 60708-1) Lab Interpretation (test Abnormal code = 56324-0) [facility] AgvodiIceqgssdjfaq9542-69-25 06:05:24 Test Item Value Reference Range Interpretation [...] 0.4 % 0.0-0.4 IGRE % c ount 26498-6) includes Metamyelocytes, Myelocytes, and Promyelocytes. Neutrophil Abs (test code 8.29 K/uL 1.70-7.30 H = 751-8) Lymphocyte Abs (test code 1.57 K/uL 1.00-4.80 = 731-0) Monocyte Abs (test code = 0.55 K/uL 0.08-0.70 742-7) Eosinophil Abs (test code 0.08 K/uL 0.04-0.40 = 711-2) Basophil Abs (test code = 0.02 K/uL 0.00-0.10 704-7) IG Abs (test code = 0.04 K/uL 0.00-0.04 77603-3) Lab Interpretation (test Abnormal code = 01289-5) [facility] [place].NZC3007-27-04 06:05:13 Test Item Value Reference Range Interpretation Comments WBC (test code = 10.6 K/uL 4.0-11.0 6690-2) RBC (test code = 789-8) 4.97 See_Comment [Au tomated message] The system [employer] generated this result transmitted ref erence range: 4.00 - 5 .50 M/uL. The refer ence range was not u sed to interpret this result as normal/abnor mal. Hgb (test code = 718-7) 12.1 See_Comment [Au tomated message] The system [employer] generated this result transmitted ref erence range: [...] See_Comment [Automate d message] 786-4) The system [employer] generated this result transmitted ref erence range: 31.0 - 3 6.0 gm/dL. The refe rence range was not u sed to interpret this result as normal/abnor mal. RDW-SD (test code = 38.7 fL 35.1-46.3 55824-1) RDW-CV (test code = 14.6 % 12.0-15.5 788-0) Platelet count (test 330 K/uL 140-440 code = 777-3) MPV (test code = 10.0 fL 4.0-10.4 07931-3) INRBC (test code = 0.0 % See_Comment The INRBC (instrument 16524-6) NRBC) value ref lects the enumeration of nucleated red b lood cells contained in a 200uL sampleof whole blood analyzed by the instrument. Thi s value maydiffer from the NRBC value reported in a m anual differential,wh ich is based on a 100 cell differential. [Automated mess age] The system [employer] generated this result transmitted ref erence range: <=0.0. T he reference range was not used to int erpret this result as normal/abnormal . Lab Interpretation Abnormal (test code = 65800-3) [facility] [place].MRT9595-79-20 06:05:13 Test Item Value Reference Range Interpretation Comments WBC (test code = 10.6 K/uL 4.0-11.0 6690-2) RBC (test code = 789-8) 4.97 See_Comment [Au tomated message] The system [employer] generated this result transmitted ref erence range: 4.00 - 5 .50 M/uL. The refer ence range was not u sed to interpret this result as normal/abnor mal. Hgb (test code = 718-7) 12.1 See_Comment [Au tomated message] The system [employer] generated this result transmitted ref erence range: [...] See_Comment [Automate d message] 786-4) The system [employer] generated this result transmitted ref erence range: 31.0 - 3 6.0 gm/dL. The refe rence range was not u sed to interpret this result as normal/abnor mal. RDW-SD (test code = 38.7 fL 35.1-46.3 73476-0) RDW-CV (test code = 14.6 % 12.0-15.5 788-0) Platelet count (test 330 K/uL 140-440 code = 777-3) MPV (test code = 10.0 fL 4.0-10.4 65550-7) INRBC (test code = 0.0 % <=0.0 The INRBC (instrument 00726-9) NRBC) value ref lects the enumeration of nucleated red b lood cells contained in a 200uL sampleof whole blood analyzed by the instrument. Thi s value maydiffer from the NRBC value reported in a m anual differential,wh ich is based on a 100 cell differential. Lab Interpretation Abnormal (test code = 01791-1) [facility] [place].[id number] 06:05:13 Test Item Value Reference Range Interpretation Comments WBC (test code = 10.6 K/uL 4.0-11.0 6690-2) RBC (test code = 789-8) 4.97 See_Comment [Au tomated message] The system [employer] generated this result transmitted ref erence range: 4.00 - 5 .50 M/uL. The refer ence range was not u sed to interpret this result as normal/abnor mal. Hgb (test code = 718-7) 12.1 See_Comment [Au tomated message] The system [employer] generated this result transmitted ref erence range: [...] See_Comment [Automate d message] 786-4) The system [employer] generated this result transmitted ref erence range: 31.0 - 3 6.0 gm/dL. The refe rence range was not u sed to interpret this result as normal/abnor mal. RDW-SD (test code = 38.7 fL 35.1-46.3 78091-5) RDW-CV (test code = 14.6 % 12.0-15.5 788-0) Platelet count (test 330 K/uL 140-440 code = 777-3) MPV (test code = 10.0 fL 4.0-10.4 40494-3) INRBC (test code = 0.0 % <=0.0 The INRBC (instrument 06165-3) NRBC) value ref lects the enumeration of nucleated red b lood cells contained in a 200uL sampleof whole blood analyzed by the instrument. Thi s value maydiffer from the NRBC value reported in a m anual differential,wh ich is based on a 100 cell differential. Lab Interpretation Abnormal (test code = 66139-8) [facility] [place].[id number] 06:05:13 Test Item Value Reference Range Interpretation Comments WBC (test code = 10.6 K/uL 4.0-11.0 6690-2) RBC (test code = 789-8) 4.97 See_Comment [Au tomated message] The system [employer] generated this result transmitted ref erence range: 4.00 - 5 .50 M/uL. The refer ence range was not u sed to interpret this result as normal/abnor mal. Hgb (test code = 718-7) 12.1 See_Comment [Au tomated message] The system [employer] generated this result transmitted ref erence range: [...] See_Comment [Automate d message] 786-4) The system [employer] generated this result transmitted ref erence range: 31.0 - 3 6.0 gm/dL. The refe rence range was not u sed to interpret this result as normal/abnor mal. RDW-SD (test code = 38.7 fL 35.1-46.3 82174-6) RDW-CV (test code = 14.6 % 12.0-15.5 788-0) Platelet count (test 330 K/uL 140-440 code = 777-3) MPV (test code = 10.0 fL 4.0-10.4 81671-8) INRBC (test code = 0.0 % <=0.0 The INRBC (instrument 37312-3) NRBC) value ref lects the enumeration of nucleated red b lood cells contained in a 200uL sampleof whole blood analyzed by the instrument. Thi s value maydiffer from the NRBC value reported in a m anual differential,wh ich is based on a 100 cell differential. Lab Interpretation Abnormal (test code = 31836-6) [facility] [place].[id number] 06:05:13 Test Item Value Reference Range Interpretation Comments WBC (test code = 10.6 K/uL 4.0-11.0 6690-2) RBC (test code = 789-8) 4.97 See_Comment [Au tomated message] The system [employer] generated this result transmitted ref erence range: 4.00 - 5 .50 M/uL. The refer ence range was not u sed to interpret this result as normal/abnor mal. Hgb (test code = 718-7) 12.1 See_Comment [Au tomated message] The system [employer] generated this result transmitted ref erence range: [...] See_Comment [Automate d message] 786-4) The system [employer] generated this result transmitted ref erence range: 31.0 - 3 6.0 gm/dL. The refe rence range was not u sed to interpret this result as normal/abnor mal. RDW-SD (test code = 38.7 fL 35.1-46.3 90172-4) RDW-CV (test code = 14.6 % 12.0-15.5 788-0) Platelet count (test 330 K/uL 140-440 code = 777-3) MPV (test code = 10.0 fL 4.0-10.4 87122-8) INRBC (test code = 0.0 % <=0.0 The INRBC (instrument 15213-8) NRBC) value ref lects the enumeration of nucleated red b lood cells contained in a 200uL sampleof whole blood analyzed by the instrument. Thi s value maydiffer from the NRBC value reported in a m anual differential,wh ich is based on a 100 cell differential. Lab Interpretation Abnormal (test code = 54122-8) [facility] [place]
[2023-09-17] MEDS ORDERED: METHYLPREDNISOLONE 125 MG INJ ONE (05:40)
[2023-09-17] MEDS ORDERED: DIPHENHYDRAMINE 50 MG/ML VIAL ONE (05:40)
[2023-09-17] MEDS ORDERED: FAMOTIDINE 20 MG/2 ML VIAL IV ONE (05:40)
[2023-09-17] MEDS ORDERED: EPINEPHRINE/PF 1 MG/ML AMP ONE ×3 (05:44→05:50)
[2023-09-17] MEDS ORDERED: EPINEPHrine 1 MG/10 ML SYR ONE (05:49)
--- NOTE | 2023-09-17 09:15 | EDPHYS ---
Physician Documentation [facility] Name: Dorothy Tompkins Age: 57 yrs Sex: Female : 1965 Arrival Date: 09/17/2023 Time: 05:18 Bed 20 Private MD: ED Physician Heriberto Sandy HPI: 09/17 06:25 This 57 yrs old Black Female presents to ER via Wheelchair with complaints of Allergic rt Reaction. 06:25 Patient presents to the ED with reported allergic reaction. Patient states this was rt from a sports drink. She drank earlier today just prior to arrival, immediately noticed swelling to the posterior throat. She did take 25 mg of Benadryl prior to arrival. Denies other acute complaints at this time, symptoms are moderate severity, no other aggravating or alleviating factors.. Historical: - Allergies: 05:37 TIA INHIBITORS; 05:37 Biaxin; 05:37 Clarithromycin; 05:37 Lisinopril; - PMHx: 05:37 Hypertension; 8 - Immunization history:: Adult Immunizations unknown. - Social history:: Smoking status: Patient denies any tobacco usage or history of. Patient/guardian denies using alcohol, street drugs. - Family history:: not pertinent. ROS: 06:25 Constitutional: Negative for fever, chills, and weight loss, Cardiovascular: Negative rt for chest pain, palpitations, and edema, Abdomen/GI: Negative for abdominal pain, nausea, vomiting, diarrhea, and constipation, MS/Extremity: Negative for injury and deformity, Skin: Negative for injury, rash, and discoloration, Neuro: Negative for headache, weakness, numbness, tingling, and seizure, Psych: Negative for depression, anxiety, suicide ideation, homicidal ideation, and hallucinations, 06:25 ENT: Positive for Throat swelling, hoarseness, 06:25 Respiratory: Positive for shortness of breath, Negative for cough, Exam: 06:25 Constitutional: This is a well developed, well nourished patient who is awake, alert, rt and in no acute distress. Head/Face: Normocephalic, atraumatic. Chest/axilla: Normal chest wall appearance and motion. Nontender with no deformity. No lesions are appreciated. Cardiovascular: Regular rate and rhythm with a normal S1 and S2. No gallops, murmurs, or rubs. Normal PMI, no JVD. No pulse deficits. Respiratory: Lungs have equal breath sounds bilaterally, clear to auscultation and percussion. No rales, rhonchi or wheezes noted. No increased work of breathing, no retractions or nasal flaring. Abdomen/GI: Soft, non-tender, with normal bowel sounds. No distension or tympany. No guarding or rebound. No evidence of tenderness throughout. Skin: Warm, dry with normal turgor. Normal color with no rashes, no lesions, and no evidence of cellulitis. MS/ Extremity: Pulses equal, no cyanosis. Neurovascular intact. Full, normal range of motion. Neuro: Awake and alert, GCS 15, oriented to person, place, time, and situation. Cranial nerves II-XII grossly intact. Motor strength 5/5 in all extremities. Sensory grossly intact. Cerebellar exam normal. Normal gait. Psych: Awake, alert, with orientation to person, place and time. Behavior, mood, and affect are within normal limits. 06:25 ENT: No posterior pharyngeal erythema, mild edema noted, no stridor. Vital Signs: 05:34 BP 146 / 88; Pulse 72; Resp 20; Temp 97.6(O); Pulse Ox 95% on R/A; Weight 124.74 kg [facility] (R); Height 5 ft. 6 in. ; Pain 0/10; 06:00 BP 142 / 97; Pulse 69; Resp 18; Pulse Ox 95% on R/A; 8 06:15 BP 135 / 91; Pulse 70; Resp 18 S; Pulse Ox 95% on R/A; 8 06:30 BP 145 / 77; Pulse 71; Resp 18 S; Pulse Ox 94% on R/A; km8 07:00 BP 139 / 78; Pulse 75; Resp 16; Pulse Ox 95% on R/A; km8 07:15 BP 135 / 71; Pulse 81; Resp 16; Pulse Ox 96% on R/A; db 08:30 BP 139 / 72; Pulse 82; Resp 16; Pulse Ox 94% on R/A; db 09:00 BP 132 / 82; Pulse 83; Resp 16; Pulse Ox 95% on R/A; db 05:34 Body Mass Index 44.39 (124.74 kg, 167.64 cm) [facility] 05:34 Pain Scale: Adult 8 MDM: 05:26 Patient medically screened. rt 09:12 Differential diagnosis: anaphylaxis, angioedema, urticaria. Data reviewed: vital signs, rn nurses notes, and as a result, I will discharge patient. Counseling: I had a detailed discussion with the patient and/or guardian regarding the historical points, exam findings, and any diagnostic results supporting the discharge/admit diagnosis, lab results, the need for outpatient follow up, to return to the emergency department if symptoms worsen or persist or if there are any questions or concerns that arise at home. Response to treatment: the patient's symptoms have markedly improved after treatment, and as a result, I will discharge patient. Special discussion: I discussed with the patient/guardian in detail that at this point there is no indication for admission to the hospital. It is understood, however, that if the symptoms persist or worsen the patient needs to return immediately for re-evaluation. Based on the history and exam findings, there is no indication for further emergent testing or inpatient evaluation. I discussed with the patient/guardian the need to see the loom control chain builder for further evaluation of the symptoms. I discussed with the patient/guardian the need to see the primary care provider for further evaluation of the symptoms. ED course: Patient signed out to me by Dr. Griggs. Plan was to observe in the ER for few hours given her presentation with allergic reaction. Epinephrine was given. Has now been observed for 4 hours and is sleeping comfortably with normal vital signs and no oxygen requirement. No stridor. Will DC home with refill of EpiPen and steroids.. Administered Medications: 05:41 Drug: diphenhydrAMINE IVP 25 mg IVP once Route: IVP; Site: right antecubital; [facility] 06:29 Follow up: Response: No adverse reaction [facility] 05:41 Drug: Famotidine IVP 20 mg IVP once; dilute with 10 mL 0.9% NaCl; give over 2 minutes [facility] Route: IVP; Site: right antecubital; 06:29 Follow up: Response: No adverse reaction [facility] 05:41 Drug: MethylPrednisoLONE IVP 125 mg IVP once Route: IVP; Site: right antecubital; [facility] 06:30 Follow up: Response: No adverse reaction [facility] 05:42 Drug: EPINEPHrine 1:1000 Sub-Q 1:1,000 0.3 ml Sub-Q once Route: Sub-Q; Site: right vc1 upper arm; 07:10 Follow up: Response: No adverse reaction db Disposition Summary: 09/17/23 09:14 Discharge Ordered Notes: Location: Home rn Problem: new rn Symptoms: have improved rn Condition: Stable rn Diagnosis - Acute allergic reaction rn Followup: rn - With: Private Physician - When: As needed - Reason: Recheck today's complaints, Re-evaluation by your physician Discharge Instructions: - Discharge Summary Sheet rn - Anaphylactic Reaction, Adult rn Forms: - Medication Reconciliation Form rn - Thank You Letter rn - Antibiotic financial intern - Prescription Opioid Use rn - Patient Portal Instructions rn - Leadership Thank You Letter rn Prescriptions: - epinephrine 0.3 mg/0.3 mL Injection Auto-Injector - administer 0.3 milliliter INTRAMUSCULAR route every 30 minutes As needed as rn needed for anaphylaxis; do not exceed 12 doses per 24 hrs; 2 Pack; Refills: 0, Product Selection Permitted - Prednisone 20 mg Oral Tablet - take 3 tablets ORAL route once daily for 5 days; 15 tablet; Refills: 0, Product rn Selection Permitted Signatures: Heriberto Sandy MD MD rn Calcote, Vanessa, RN RN vc1 River Griggs MD MD rt Hilda Small RN RN km8 Michelle Guerrero RN db
--- NOTE | 2023-09-17 09:15 | ER ---
Nurse's Notes [facility] Name: Dorothy Tompkins Age: 57 yrs Sex: Female : 1965 Arrival Date: 09/17/2023 Time: 05:18 Bed 20 Private MD: Diagnosis: Acute allergic reaction Presentation: 09/17 05:34 Chief complaint: Patient states: pt reports lower lip swelling, SOB, and generalized km8 itching starting about 30 mins ago after drinking a few sips of a "ready protein water" drink she has had before; pt also reports feels like her tongue and throat are swelling. Coronavirus screen: At this time, the client does not indicate any symptoms associated with coronavirus-19. Ebola Screen: No symptoms or risks identified at this time. Onset: The symptoms/episode began/occurred suddenly, 30 minute(s) ago. Anaphylaxis evaluation, the patient reports or I have noted the following symptoms which indicate a significant risk of anaphylaxis: lightheadedness lump in the throat which may suggest laryngeal edema shortness of breath urticaria . The patient has been moved to a treatment room and the charge nurse or attending physician has been notified. Initial Sepsis Screen: Does the patient meet any 2 criteria? No. Patient's initial sepsis screen is negative. Does the patient have a suspected source of infection? No. Patient's initial sepsis screen is negative. Risk Assessment: Do you want to hurt yourself or someone else? Patient reports no desire to harm self or others. Onset of symptoms was September 17, 2023. Care prior to arrival: took 1 benadryl. 05:34 Method Of Arrival: Wheelchair km8 05:34 Acuity: KAMLA 2 km8 Triage Assessment: 05:37 General: Appears distressed, uncomfortable, Behavior is cooperative, appropriate for km8 age, anxious. Pain: Denies pain. EENT: lower lip swelling. Reports difficulty swallowing swelling in throat and tongue. Neuro: Diallo Agitation-Sedation Scale (RASS): 0 - Alert and Calm Level of Consciousness is awake, alert, obeys commands, Oriented to person, place, time, situation. Cardiovascular: Denies chest pain, Capillary refill < 3 seconds Patient's skin is warm and dry. Respiratory: Reports shortness of breath Airway is patent Respiratory effort is even, labored, Respiratory pattern is regular, symmetrical, Breath sounds are clear bilaterally. GI: No deficits noted. No signs and/or symptoms were reported involving the gastrointestinal system. : No deficits noted. No signs and/or symptoms were reported regarding the genitourinary system. Derm: Skin is intact, Skin is dry, Skin is normal, Skin temperature is warm Reports itching. Musculoskeletal: Range of motion: intact in all extremities. Historical: - Allergies: 05:37 TIA INHIBITORS; km8 05:37 Biaxin; km8 05:37 Clarithromycin; km8 05:37 Lisinopril; km8 - PMHx: 05:37 Hypertension; km8 - Immunization history:: Adult Immunizations unknown. - Social history:: Smoking status: Patient denies any tobacco usage or history of. Patient/guardian denies using alcohol, street drugs. - Family history:: not pertinent. Screenin:39 [facility] ED Fall Risk Assessment (Adult) History of falling in the last 3 months, km8 including since admission No falls in past 3 months (0 pts) Confusion or Disorientation No (0 pts) Intoxicated or Sedated No (0 pts) Impaired Gait Yes (1 pt) Mobility Assist Device Used No (0 pt) Altered Elimination No (0 pt) Score/Fall Risk Level 0 - 2 = Low Risk Oriented to surroundings, Maintained a safe environment, Educated pt \\T\\ family on fall prevention, incl call for assistance when getting out of bed, Assessed \\T\\ reinforced patient's understanding of fall precautions. Abuse screen: Denies threats or abuse. Denies injuries from another. Nutritional screening: No deficits noted. Tuberculosis screening: No symptoms or risk factors identified. Assessment: 05:39 General: see triage assessment/notes. Respiratory: Airway is patent Respiratory effort km8 is even, labored, Respiratory pattern is regular. 06:09 Reassessment: Patient appears in no apparent distress at this time. No changes from km8 previously documented assessment. Patient and/or family updated on plan of care and expected duration. Pain level reassessed. Patient is alert, oriented x 3, equal unlabored respirations, skin warm/dry/pink. pt noted to be breathing less labored and lower lip no longer swollen. 06:09 Respiratory: Airway is patent Respiratory effort is even, unlabored, Respiratory km8 pattern is regular, symmetrical. EENT: lower lip swelling decreased. 06:32 Reassessment: Patient appears in no apparent distress at this time. Patient and/or [facility] family updated on plan of care and expected duration. Pain level reassessed. pt resting comfortably with eyes closed at this time. 07:10 Reassessment: Patient appears in no apparent distress at this time. Patient and/or db family updated on plan of care and expected duration. Pain level reassessed. Patient is alert, oriented x 3, equal unlabored respirations, skin warm/dry/pink. FAMILY WITH PT. LIGHTS DIMMED. General: Appears in no apparent distress. comfortable, Behavior is calm. Respiratory: Airway is patent Respiratory effort is even, unlabored, Respiratory pattern is regular, symmetrical. 09:38 Reassessment: Patient appears in no apparent distress at this time. Patient and/or db family updated on plan of care and expected duration. Pain level reassessed. Patient is alert, oriented x 3, equal unlabored respirations, skin warm/dry/pink. Patient states feeling better. Patient states symptoms have improved. Pain: Denies pain. Neuro: Level of Consciousness is awake, alert, obeys commands, Oriented to person, place, time, situation. Respiratory: Airway is patent Respiratory effort is even, unlabored, Respiratory pattern is regular, symmetrical, Breath sounds are clear bilaterally. Vital Signs: 05:34 BP 146 / 88; Pulse 72; Resp 20; Temp 97.6(O); Pulse Ox 95% on R/A; Weight 124.74 kg [facility] (R); Height 5 ft. 6 in. ; Pain 0/10; 06:00 BP 142 / 97; Pulse 69; Resp 18; Pulse Ox 95% on R/A; km8 06:15 BP 135 / 91; Pulse 70; Resp 18 S; Pulse Ox 95% on R/A; km8 06:30 BP 145 / 77; Pulse 71; Resp 18 S; Pulse Ox 94% on R/A; km8 07:00 BP 139 / 78; Pulse 75; Resp 16; Pulse Ox 95% on R/A; km8 07:15 BP 135 / 71; Pulse 81; Resp 16; Pulse Ox 96% on R/A; db 08:30 BP 139 / 72; Pulse 82; Resp 16; Pulse Ox 94% on R/A; db 09:00 BP 132 / 82; Pulse 83; Resp 16; Pulse Ox 95% on R/A; db 05:34 Body Mass Index 44.39 (124.74 kg, 167.64 cm) km8 05:34 Pain Scale: Adult km8 ED Course: 05:21 Patient arrived in ED. [id number] 05:21 River Griggs MD is Attending Physician. rt 05:23 Hilda Small, ALEXEI is Primary Nurse. km8 05:37 Triage completed. km8 05:37 Arm band placed on right wrist. km8 05:39 Patient has correct armband on for positive identification. Bed in low position. Call km8 light in reach. Side rails up X2. Client placed on continuous cardiac and pulse oximetry monitoring. NIBP monitoring applied. maintenance painter on. Door closed. Noise minimized. Warm blanket given. 05:39 Inserted saline lock: 20 gauge in right antecubital area, using aseptic technique. km8 Blood collected. Patient maintains SpO2 saturation greater than 95% on room air. 05:41 Provided Education on: monitoring for 4 hours after epi in ER. km8 07:02 Attending Physician role handed off by River Griggs MD rn 07:02 Heriberto Sandy MD is Attending Physician. rn 09:38 No provider procedures requiring assistance completed. IV discontinued, intact, db bleeding controlled, No redness/swelling at site. Administered Medications: 05:41 Drug: diphenhydrAMINE IVP 25 mg IVP once Route: IVP; Site: right antecubital; km8 06:29 Follow up: Response: No adverse reaction km8 05:41 Drug: Famotidine IVP 20 mg IVP once; dilute with 10 mL 0.9% NaCl; give over 2 minutes km8 Route: IVP; Site: right antecubital; 06:29 Follow up: Response: No adverse reaction km8 05:41 Drug: MethylPrednisoLONE IVP 125 mg IVP once Route: IVP; Site: right antecubital; km8 06:30 Follow up: Response: No adverse reaction km8 05:42 Drug: EPINEPHrine 1:1000 Sub-Q 1:1,000 0.3 ml Sub-Q once Route: Sub-Q; Site: right vc1 upper arm; 07:10 Follow up: Response: No adverse reaction db Medication: 05:39 VIS not applicable for this client. km8 Outcome: 09:14 Discharge ordered by . rn 09:38 Discharged to home ambulatory, with family, db 09:38 Condition: stable 09:38 Discharge instructions given to patient, Instructed on discharge instructions, follow up and referral plans. Prescriptions given X 2, 09:39 Patient left the ED. db Signatures: Heriberto Sandy MD MD rn Jeffries, Jennifer jj6 Denia Gamino RN RN vc1 Michelle Guerrero RN RN db River Griggs MD MD rt Hilda Small RN RN km8 Corrections: (The following items were deleted from the chart) 06:32 05:34 Chief complaint: Patient states: pt reports lower lip swelling, SOB, and km8 generalized itching starting about 30 mins ago after drinking a few sips of a ____ drink she has had before; pt also reports feels like her tongue and throat are swelling km8 07:00 06:09 Reassessment: Patient appears in no apparent distress at this time. No changes km8 from previously documented assessment. Patient and/or family updated on plan of care and expected duration. Pain level reassessed. Patient is alert, oriented x 3, equal unlabored respirations, skin warm/dry/pink. km8 07:01 05:37 EENT: Reports difficulty swallowing swelling in throat and tongue. km8 km8
[2023-09-17 09:45] VITALS: TEMP 97.6
[2023-09-17 09:53] VITALS: BP 132/82; O2SAT 95
== END 2023-09-17 09:39 | disposition home or self-care (01) ==
LOC: ER 05:18
DX: R06.02 Shortness of breath (principal); R60.9 Edema, unspecified; Z88.3 Allergy status to other anti-infective agents; Z88.8 Allergy status to other drugs, medicaments and biological substances
CPT/HCPCS: 96375; 96372; 96374; 99285; J0171; J1200; J2930